=== PATIENT | male | born 1985 | race Caucasian/White ===

== ENCOUNTER 2017-09-24 12:38 | Emergency (ER) | payer MEDICAID ==
[~2017-09-24] VITALS: Ht 175.3 cm; Wt 103.0 kg
[~2017-09-24 12:38] MED LIST: ARIP5TAB4 PO; DIPH-423 PO; HALO5TAB PO; LAMO25TA2 PO; LORA1TAB PO
[2017-09-24] MEDS ORDERED: triamcinolone acetonide 40mg/ml inj IM ONE (15:10)
[2017-09-24] MEDS ORDERED: ketorolac trometh inj. 60 MG/2 ML VIAL IM ONE (15:10)
[2017-09-24 15:35] VITALS: BP 145/99
== END 2017-09-24 15:40 | disposition home or self-care (01) ==
LOC: ER 12:38
DX: S30.0XXA Contusion of lower back and pelvis, initial encounter (principal); F12.10 Cannabis abuse, uncomplicated; F15.10 Other stimulant abuse, uncomplicated; Z59.0 Homelessness; Z56.0 Unemployment, unspecified; W17.89XA Other fall from one level to another, initial encounter; Y93.89 Activity, other specified; Y92.89 Other specified places as the place of occurrence of the external cause; Y99.9 Unspecified external cause status
CPT/HCPCS: 72131; 96372; 99284; J1885; J3301

== ENCOUNTER 2017-11-13 18:53 | Emergency (ER) | payer MEDICAID ==
[~2017-11-13] VITALS: Ht 175.3 cm; Wt 90.9 kg
[~2017-11-13 18:53] MED LIST changes: -ARIP5TAB4 PO; +BUSP5TAB3 PO; +CITA-278 PO; +CLON0.1T PO; -DIPH-423 PO; +FLUT16SP2 BOTHNARES; -HALO5TAB PO; +IBUP-1986 PO; +QUET25TA PO
[2017-11-13 19:42] LABS: CLARITY,URINE CLEAR (Clear); COLOR,URINE YELLOW (Yellow); GLUCOSE, URINE NEGATIVE (Neg); KETONES,URINE TRACE mg/dl (Neg); LEUKOCYTE ESTERASE ,URINE NEGATIVE (Neg); NITRITES, URINE NEGATIVE (Neg); OCCULT BLOOD,URINE NEGATIVE (Neg); PH,URINE 5.5 (4.8-8.0); PROTEIN,URINE TRACE mg/dl (Neg)
[2017-11-13 19:44] LABS: UA COLLECTION TYPE CLN CATCH MIDSTREAM
[2017-11-13 19:51] LABS: BACTERIA,URINE NONE SEEN /HPF (Neg); MUCUS STRANDS FEW /LPF (Neg); RBC,URINE NONE SEEN /HPF (0-2); SQUAMOUS EPITHELIAL CELL,UR FEW /LPF (FEW)
[2017-11-13 19:52] LABS: WBC,URINE 0-4 /HPF (0-4)
[2017-11-13 20:41] LABS: URINE AMPHETAMINE SCREEN POSITIVE (Neg); URINE BARBITUATE SCREEN NEGATIVE (Neg); URINE BENZODIAZEPINES SCREEN NEGATIVE (Neg); URINE CANNABINOID SCREEN NEGATIVE (Neg); URINE COCAINE SCREEN NEGATIVE (Neg); URINE METHADONE SCREEN NEGATIVE (Neg); URINE OPIATE SCREEN NEGATIVE (Neg); URINE PHENCYCLIDINE SCREEN NEGATIVE (Neg)
[2017-11-13 20:47] VITALS: BP 131/87
== END 2017-11-13 21:15 | disposition home or self-care (01) ==
LOC: ER 18:54
DX: R36.9 Urethral discharge, unspecified (principal); R20.0 Anesthesia of skin; R10.30 Lower abdominal pain, unspecified; F15.10 Other stimulant abuse, uncomplicated; I10 Essential (primary) hypertension; F17.200 Nicotine dependence, unspecified, uncomplicated; F12.90 Cannabis use, unspecified, uncomplicated; Z60.2 Problems related to living alone; Z86.19 Personal history of other infectious and parasitic diseases; Z59.0 Homelessness; Z56.0 Unemployment, unspecified; Z79.899 Other long term (current) drug therapy
CPT/HCPCS: 80305; 81001; 99284

== ENCOUNTER 2018-01-30 07:03 | Emergency (ER) | payer MEDICAID ==
[~2018-01-30] VITALS: Ht 175.3 cm; Wt 96.4 kg
[~2018-01-30 07:03] MED LIST changes: -LAMO25TA2 PO
[2018-01-30 08:08] VITALS: BP 138/73
== END 2018-01-30 08:30 | disposition home or self-care (01) ==
LOC: ER 07:03
DX: M54.9 Dorsalgia, unspecified (principal); F03.90 Unspecified dementia, unspecified severity, without behavioral disturbance, psychotic disturbance, mood disturbance, and anxiety; H57.89 Other specified disorders of eye and adnexa; I10 Essential (primary) hypertension; F12.90 Cannabis use, unspecified, uncomplicated; F15.90 Other stimulant use, unspecified, uncomplicated; Z79.899 Other long term (current) drug therapy; Z56.0 Unemployment, unspecified; Z59.0 Homelessness; Z60.2 Problems related to living alone
CPT/HCPCS: 99281

== ENCOUNTER 2018-04-26 14:34 | Emergency (ER) | payer MEDICAID ==
[~2018-04-26] VITALS: Ht 175.3 cm; Wt 95.9 kg
[2018-04-26 15:20] VITALS: BP 150/93
[2018-04-26 15:42] LABS: BASOPHILS % (AUTO) 0.8 % (0-1); EOSINOPHILS % (AUTO) 0.5 % (0-6); HEMATOCRIT 49.5 % (42.0-52.0); HEMOGLOBIN 16.5 g/dl (14.0-17.9); LYMPHOCYTES # (AUTO) 1.1 X10'3 (1.1-4.8); LYMPHOCYTES % (AUTO) 29.7 % (21-51); MEAN CORPUSCULAR HEMOGLOBIN 31.2 PG (27.0-31.0); MEAN CORPUSCULAR HGB CONC 33.3 % (33.0-36.5); MEAN CORPUSCULAR VOLUME 93.8 FL (78-98); MEAN PLATELET VOLUME 6.3 FL (7.4-10.4); MONOCYTES # (AUTO) 0.3 X10'3 (0-0.9); MONOCYTES % (AUTO) 9.3 % (2-12); NEUTROPHILS # (AUTO) 2.2 X10'3 (1.8-7.7); NEUTROPHILS % (AUTO) 59.7 % (42-75); PLATELET COUNT 202 X10'3 (140-440); RED BLOOD COUNT 5.28 X10'6 (4.70-6.10); RED CELL DISTRIBUTION WIDTH 13.3 % (11.5-14.5); WHITE BLOOD COUNT 3.6 X10'3 (4.5-11.0)
[2018-04-26 15:50] LABS: CLARITY,URINE CLEAR (Clear); COLOR,URINE YELLOW (Yellow); GLUCOSE, URINE NEGATIVE (Neg); KETONES,URINE 15 mg/dl (Neg); LEUKOCYTE ESTERASE ,URINE NEGATIVE (Neg); NITRITES, URINE NEGATIVE (Neg); OCCULT BLOOD,URINE SMALL (Neg); PROTEIN,URINE >=300 mg/dl (Neg); UROBILINOGEN,URINE 0.2 E.U/dL (0.2-1.0)
[2018-04-26 15:51] LABS: UA COLLECTION TYPE CLN CATCH MIDSTREAM
[2018-04-26 16:00] LABS: ALANINE AMINOTRANSFERASE 213 U/L (12-78); ALBUMIN 4.5 G/DL (3.4-5.0); ALKALINE PHOSPHATASE 85 IU/L (46-116); ANION GAP 19 (8-16); ASPARTATE AMINO TRANSFERASE 278 U/L (10-37); BILIRUBIN,TOTAL 0.8 MG/DL (0.1-1.0); BLOOD UREA NITROGEN 14 MG/DL (7-18); BUN/CREATININE RATIO 17.5 (5.4-32.0); CALCIUM 8.6 MG/DL (8.5-10.1); CHLORIDE 99 MMOL/L (99-107); GLUCOSE 99 MG/DL (70-104); POTASSIUM 3.7 MMOL/L (3.5-5.1); SODIUM 141 MMOL/L (135-145); TOTAL CARBON DIOXIDE 22.7 MMOL/L (24-32); eGFR > 90 ML/MIN
[2018-04-26 16:01] LABS: INR 0.9 INR; PROTHROMBIN TIME 9.4 SECONDS (9.0-12.0)
[2018-04-26 16:09] LABS: BACTERIA,URINE NONE SEEN /HPF (Neg); MUCUS STRANDS FEW /LPF (Neg); RBC,URINE 0-2 /HPF (0-2); SQUAMOUS EPITHELIAL CELL,UR NONE SEEN /LPF (FEW); WBC,URINE 0-4 /HPF (0-4)
== END 2018-04-26 16:57 | disposition home or self-care (01) ==
LOC: ER 14:34
DX: F20.9 Schizophrenia, unspecified (principal); F10.10 Alcohol abuse, uncomplicated; I10 Essential (primary) hypertension; F12.90 Cannabis use, unspecified, uncomplicated; F15.90 Other stimulant use, unspecified, uncomplicated; Z86.19 Personal history of other infectious and parasitic diseases; Z60.2 Problems related to living alone; Z59.0 Homelessness; Z56.0 Unemployment, unspecified; Z79.899 Other long term (current) drug therapy; Y90.9 Presence of alcohol in blood, level not specified
CPT/HCPCS: 36415; 80053; 81001; 85025; 85610; 99283

== ENCOUNTER 2018-04-28 05:21 | Emergency (ER) | payer MEDICAID ==
[~2018-04-28] VITALS: Ht 177.8 cm; Wt 100.0 kg
[2018-04-28 05:26] VITALS: BP 138/72
[2018-04-28] MEDS ORDERED: LORazepam 2 mg/ml vial IM ONE (06:20)
[2018-04-28] MEDS ORDERED: ondansetron 4mg rapidly disintigrating tab PO ONE (06:55)
[2018-04-28] MEDS ORDERED: chlordiazePOXIDE 25mg capsule PO ONE (06:55)
== END 2018-04-28 07:33 | disposition home or self-care (01) ==
LOC: ER 05:23
DX: F41.9 Anxiety disorder, unspecified (principal); I10 Essential (primary) hypertension; F32.9 Major depressive disorder, single episode, unspecified; F20.9 Schizophrenia, unspecified; F12.90 Cannabis use, unspecified, uncomplicated; F15.90 Other stimulant use, unspecified, uncomplicated; Z59.0 Homelessness; Z56.0 Unemployment, unspecified; Z79.899 Other long term (current) drug therapy
CPT/HCPCS: 93005; 96372; 99284; J2060

== ENCOUNTER 2018-06-20 15:13 | Inpatient (IN) | payer MEDICAID ==
[~2018-06-20] VITALS: Ht 175.3 cm; Wt 106.9 kg
[2018-06-20] MEDS ORDERED: Potassium Cl inj 20 MEQ, magnesium sulf injection 2 GM, folic acid inj. 1 MG, thiamine ... IV ONE ×6 (15:24)
[2018-06-20] MEDS ORDERED: normal saline 1000ML IV soln IVB ONE ×2 (15:25→19:05)
[2018-06-20] MEDS ORDERED: ondansetron/PF 4mg/2ml inj IV ONE (15:25)
[2018-06-20 15:58] LABS: BASOPHILS % (AUTO) 0.5 % (0-1); EOSINOPHILS % (AUTO) 0.3 % (0-6); HEMATOCRIT 43.2 % (42.0-52.0); HEMOGLOBIN 14.7 g/dl (14.0-17.9); LYMPHOCYTES # (AUTO) 0.9 X10'3 (1.1-4.8); LYMPHOCYTES % (AUTO) 12.7 % (21-51); MEAN CORPUSCULAR HEMOGLOBIN 31.1 PG (27.0-31.0); MEAN CORPUSCULAR VOLUME 91.6 FL (78-98); MEAN PLATELET VOLUME 6.8 FL (7.4-10.4); MONOCYTES # (AUTO) 0.6 X10'3 (0-0.9); MONOCYTES % (AUTO) 8.5 % (2-12); NEUTROPHILS # (AUTO) 5.2 X10'3 (1.8-7.7); PLATELET COUNT 192 X10'3 (140-440); RED BLOOD COUNT 4.72 X10'6 (4.70-6.10); RED CELL DISTRIBUTION WIDTH 13.7 % (11.5-14.5); WHITE BLOOD COUNT 6.7 X10'3 (4.5-11.0)
[2018-06-20 16:06] LABS: PROTHROMBIN TIME 9.9 SECONDS (9.0-12.0)
[2018-06-20] MEDS ORDERED: LORazepam 2 mg/ml vial IV ONE ×2 (16:10→17:45)
[2018-06-20 16:11] LABS: ALANINE AMINOTRANSFERASE 65 U/L (12-78); ALKALINE PHOSPHATASE 74 IU/L (46-116); ANION GAP 17 (8-16); ASPARTATE AMINO TRANSFERASE 71 U/L (10-37); BILIRUBIN,TOTAL 0.7 MG/DL (0.1-1.0); BLOOD UREA NITROGEN 12 MG/DL (7-18); BUN/CREATININE RATIO 13.8 (5.4-32.0); CALCIUM 9.1 MG/DL (8.5-10.1); CHLORIDE 100 MMOL/L (99-107); CREATININE 0.87 MG/DL (0.60-1.10); ETHANOL 0.039 GM/DL (0.0-0.010); GLUCOSE 105 MG/DL (70-104); LIPASE 217 U/L (73-393); MAGNESIUM 1.3 MG/DL (1.5-2.4); POTASSIUM 3.5 MMOL/L (3.5-5.1); SODIUM 138 MMOL/L (135-145); TOTAL CARBON DIOXIDE 21.5 MMOL/L (24-32); eGFR > 90 ML/MIN
[2018-06-20] MEDS ORDERED: pantoprazole 40 MG vial IV ONE (17:45)
[2018-06-20 17:51] LABS: URINE AMPHETAMINE SCREEN NEGATIVE (Neg); URINE BARBITUATE SCREEN NEGATIVE (Neg); URINE BENZODIAZEPINES SCREEN NEGATIVE (Neg); URINE CANNABINOID SCREEN NEGATIVE (Neg); URINE COCAINE SCREEN NEGATIVE (Neg); URINE METHADONE SCREEN NEGATIVE (Neg); URINE OPIATE SCREEN NEGATIVE (Neg); URINE PHENCYCLIDINE SCREEN NEGATIVE (Neg)
[2018-06-20] MEDS ORDERED: haloperidol lactate 5mg/ml inj IM PRN (19:55)
[2018-06-20] MEDS ORDERED: magnesium hydroxide 30ml (MOM) UD suspension PO PRN (19:55)
[2018-06-20] MEDS ORDERED: haloperidol 5mg tablet PO PRN (19:55)
[2018-06-20] MEDS ORDERED: morphine 4 MG/ML inj SYRINge IV PRN ×2 (19:55)
[2018-06-20] MEDS ORDERED: mag hydrox/Alum hydrox/simeth 30ml oral suspension PO PRN (19:55)
[2018-06-20] MEDS ORDERED: ondansetron/PF 4mg/2ml inj IV PRN (19:55)
[2018-06-20] MEDS ORDERED: HYDROcodone/acetaminophen 5mg/325mg tablet PO PRN (19:55)
[2018-06-20] MEDS ORDERED: acetaminophen 325mg tablet PO PRN (19:55)
[2018-06-20] MEDS ORDERED: thiamine 100mg/ml 2ml inj. IV ONE (19:55)
[2018-06-20] MEDS ORDERED: dextrose 50%-water 50ml dispensing syringe IV PRN (19:55)
[2018-06-20] MEDS: dextrose 5%-1/2 normal saline 1,000 ML IV SCH (20:29)
[2018-06-20] MEDS: heparin, porcine 5000 units/ml vial SQ SCH (20:30)
--- NOTE | 2018-06-20 21:10 | NUR ---
Pt reports ETOH consumption of " a fifth daily, " with last drink last night.
--- NOTE | 2018-06-20 22:00 | NUR ---
Received report from Alexa RN had the opportunity to ask questions. Pending patient arrival to the floor.
[2018-06-20 22:30] VITALS: BP 153/96
[2018-06-20] MEDS: LORazepam 2 mg/ml vial IV PRN (23:02)
[2018-06-20 23:21] VITALS: BP_SYST 153; BP_SYST 154; BP_DIAS 90; BP_DIAS 94; BP_DIAS 96
[2018-06-21] VITALS (7 sets, daily range): BP systolic 139–168; BP diastolic 81–109
[2018-06-21] MEDS: LORazepam 2 mg/ml vial IV PRN ×5 (00:56→19:42)
[2018-06-21] MEDS: dextrose 5%-1/2 normal saline 1,000 ML IV SCH (05:45)
--- NOTE | 2018-06-21 06:13 | NUR ---
Patient in room PCU 3025. I have received report from Leona CONTE and had the opportunity to ask questions and assume patient care.
--- NOTE | 2018-06-21 06:13 | NUR ---
Reported off to Shelley CONTE. Patient is awake and alert on room air. Call light and items of frequent use within reach.
[2018-06-21 06:25] LABS: BASOPHILS % (AUTO) 0.6 % (0-1); EOSINOPHILS # (AUTO) 0.1 X10'3 (0-0.9); EOSINOPHILS % (AUTO) 1.1 % (0-6); HEMOGLOBIN 13.8 g/dl (14.0-17.9); LYMPHOCYTES # (AUTO) 0.8 X10'3 (1.1-4.8); LYMPHOCYTES % (AUTO) 16.3 % (21-51); MEAN CORPUSCULAR HEMOGLOBIN 31.2 PG (27.0-31.0); MEAN CORPUSCULAR HGB CONC 34.4 g/dL (33.0-36.5); MEAN CORPUSCULAR VOLUME 90.5 FL (78-98); MONOCYTES # (AUTO) 0.6 X10'3 (0-0.9); MONOCYTES % (AUTO) 12.4 % (2-12); NEUTROPHILS # (AUTO) 3.4 X10'3 (1.8-7.7); NEUTROPHILS % (AUTO) 69.6 % (42-75); PLATELET COUNT 179 X10'3 (140-440); RED BLOOD COUNT 4.42 X10'6 (4.70-6.10); RED CELL DISTRIBUTION WIDTH 13.2 % (11.5-14.5)
[2018-06-21 06:29] LABS: ALANINE AMINOTRANSFERASE 56 U/L (12-78); ALBUMIN 3.3 G/DL (3.4-5.0); ALBUMIN/GLOBULIN RATIO 0.9 (1.1-1.5); ALKALINE PHOSPHATASE 62 IU/L (46-116); ANION GAP 10 (8-16); ASPARTATE AMINO TRANSFERASE 62 U/L (10-37); BILIRUBIN,TOTAL 0.8 MG/DL (0.1-1.0); BLOOD UREA NITROGEN 9 MG/DL (7-18); BUN/CREATININE RATIO 11.1 (5.4-32.0); CALCIUM 8.6 MG/DL (8.5-10.1); CHLORIDE 101 MMOL/L (99-107); CREATININE 0.81 MG/DL (0.60-1.10); GLUCOSE 93 MG/DL (70-104); POTASSIUM 3.6 MMOL/L (3.5-5.1); SODIUM 136 MMOL/L (135-145); TOTAL CARBON DIOXIDE 24.6 MMOL/L (24-32); TOTAL PROTEIN 6.9 G/DL (6.4-8.2); eGFR > 90 ML/MIN
[2018-06-21] MEDS: thiamine 100mg tablet PO SCH (07:36)
[2018-06-21] MEDS: multivitamins, therapeutics tablet PO SCH (07:36)
[2018-06-21] MEDS: busPIRone 5mg tablet PO SCH ×2 (07:36→19:40)
[2018-06-21] MEDS: folic acid 1mg tablet PO SCH (07:36)
[2018-06-21] MEDS: heparin, porcine 5000 units/ml vial SQ SCH ×2 (07:38→19:41)
[2018-06-21] MEDS ORDERED: FLU VACC QUAD 2018(5 YR UP)/PF 60 MCG/0.5 ML SYRINGE IM ONE (10:00)
--- NOTE | 2018-06-21 12:10 | NUR ---
Paged hospitalist, "Shelley [phone], Please call at your convenience (nonemergent) re: [phone]."
[2018-06-21] MEDS ORDERED: magnesium 4gm in 100ml NS 100 ML IV PRN (12:25)
[2018-06-21] MEDS ORDERED: magnesium 2GM in 50ml NS 50 ML IV PRN (12:25)
--- NOTE | 2018-06-21 14:25 | NUR ---
Paged hospitalist, "dayton [phone]- Rm. [phone]. May we get order for Immodium?"
[2018-06-21] MEDS ORDERED: potassium Cl 20 mEq SR tablet PO PRN ×2 (14:50)
[2018-06-21] MEDS ORDERED: potassium Cl 40MEQ/NS 500ml 500 ML IV PRN ×2 (14:50)
[2018-06-21] MEDS: pantoprazole 40 MG vial IV SCH (16:03)
--- NOTE | 2018-06-21 16:19 | NUR ---
Paged Daniel. "Shelley [phone]- Rm. [phone]. Patient has high blood pressure. DBP 101"
[2018-06-21] MEDS: metoprolol tartrate 25mg tablet PO SCH ×2 (16:43→19:41)
--- NOTE | 2018-06-21 18:19 | NUR ---
Problems reprioritized. Patient report given, questions answered & plan of care reviewed with DACIA CONTE.
--- NOTE | 2018-06-21 18:25 | NUR ---
Patient in room PCU 3025. I have received report from Shelley CONTE and had the opportunity to ask questions and assume patient care.
[2018-06-21] MEDS ORDERED: cloNIDine 0.1 mg tablet PO SCH (21:00)
[2018-06-21] MEDS: QUEtiapine 25mg tablet PO SCH (21:27)
[2018-06-22] VITALS (8 sets, daily range): BP systolic 126–162; BP diastolic 88–111
[2018-06-22] MEDS: LORazepam 2 mg/ml vial IV PRN (01:31)
[2018-06-22 05:32] LABS: BASOPHILS % (AUTO) 0.7 % (0-1); EOSINOPHILS # (AUTO) 0.1 X10'3 (0-0.9); EOSINOPHILS % (AUTO) 1.8 % (0-6); HEMATOCRIT 44.3 % (42.0-52.0); HEMOGLOBIN 15.1 g/dl (14.0-17.9); LYMPHOCYTES # (AUTO) 0.8 X10'3 (1.1-4.8); LYMPHOCYTES % (AUTO) 16.5 % (21-51); MEAN CORPUSCULAR HEMOGLOBIN 31.3 PG (27.0-31.0); MEAN CORPUSCULAR HGB CONC 34.1 g/dL (33.0-36.5); MEAN CORPUSCULAR VOLUME 91.8 FL (78-98); MEAN PLATELET VOLUME 7.1 FL (7.4-10.4); MONOCYTES # (AUTO) 0.7 X10'3 (0-0.9); MONOCYTES % (AUTO) 15.6 % (2-12); NEUTROPHILS % (AUTO) 65.4 % (42-75); PLATELET COUNT 171 X10'3 (140-440); RED BLOOD COUNT 4.82 X10'6 (4.70-6.10); RED CELL DISTRIBUTION WIDTH 13.5 % (11.5-14.5); WHITE BLOOD COUNT 4.6 X10'3 (4.5-11.0)
[2018-06-22 06:01] LABS: ALANINE AMINOTRANSFERASE 60 U/L (12-78); ALBUMIN 3.7 G/DL (3.4-5.0); ALBUMIN/GLOBULIN RATIO 0.8 (1.1-1.5); ALKALINE PHOSPHATASE 72 IU/L (46-116); ANION GAP 10 (8-16); ASPARTATE AMINO TRANSFERASE 58 U/L (10-37); BILIRUBIN,TOTAL 0.5 MG/DL (0.1-1.0); BLOOD UREA NITROGEN 9 MG/DL (7-18); BUN/CREATININE RATIO 10.6 (5.4-32.0); CALCIUM 9.6 MG/DL (8.5-10.1); CHLORIDE 100 MMOL/L (99-107); CREATININE 0.85 MG/DL (0.60-1.10); GLUCOSE 99 MG/DL (70-104); MAGNESIUM 1.8 MG/DL (1.5-2.4); POTASSIUM 4.1 MMOL/L (3.5-5.1); SODIUM 135 MMOL/L (135-145); TOTAL CARBON DIOXIDE 24.6 MMOL/L (24-32); TOTAL PROTEIN 8.1 G/DL (6.4-8.2); eGFR > 90 ML/MIN
--- NOTE | 2018-06-22 06:42 | NUR ---
Patient in room PCU 3025. I have received report from Deidra CONTE and had the opportunity to ask questions and assume patient care.
--- NOTE | 2018-06-22 06:51 | NUR ---
Problems reprioritized. Patient report given, questions answered & plan of care reviewed with Dinorah CONTE. Addendum: 06/22/18 at 0742 by Denise Nguyen RN Galen CONTE given report.
[2018-06-22] MEDS: multivitamins, therapeutics tablet PO SCH (09:10)
[2018-06-22] MEDS: busPIRone 5mg tablet PO SCH ×2 (09:10→19:54)
[2018-06-22] MEDS: heparin, porcine 5000 units/ml vial SQ SCH ×2 (09:10→19:56)
[2018-06-22] MEDS: thiamine 100mg tablet PO SCH (09:10)
[2018-06-22] MEDS: gabapentin 300mg capsule PO SCH ×3 (09:11→21:00)
[2018-06-22] MEDS: folic acid 1mg tablet PO SCH (09:11)
[2018-06-22] MEDS: metoprolol tartrate 25mg tablet PO SCH ×2 (09:11→19:55)
[2018-06-22] MEDS: pantoprazole 40 MG vial IV SCH (09:11)
--- NOTE | 2018-06-22 18:35 | NUR ---
Problems reprioritized. Patient report given, questions answered & plan of care reviewed with Deidra CONTE.
--- NOTE | 2018-06-22 19:14 | NUR ---
Patient in room PCU 3025. I have received report from Galen CONTE and had the opportunity to ask questions and assume patient care.
[2018-06-22] MEDS ORDERED: LORazepam 1 MG tablet PO PRN (19:55)
[2018-06-22] MEDS ORDERED: LORazepam 2 mg/ml vial IV PRN (19:55)
--- NOTE | 2018-06-22 20:00 | NUR ---
[facility] RN at assessing pt's psychiatric status through full interview. This RN also spoke w/this customs entry writer regarding pt's observed behavior and verbalizations while under care X 2 NOC shifts. Feedback offered and noted by [facility] RN. Printed paper report faxed to PCU and filed at front of chart.
[2018-06-22] MEDS: QUEtiapine 25mg tablet PO SCH (21:00)
--- NOTE | 2018-06-22 21:00 | NUR ---
Pt. awakened from sound sleep regarding medication admin. and stated to this nurse that he would prefer to not take these medications this NOC and that he would like to cont. sleeping. He is very pleasant during this interaction. Immed fell to sleep.
[2018-06-23 02:00] VITALS: BP 148/99
[2018-06-23 06:01] LABS: ALANINE AMINOTRANSFERASE 74 U/L (12-78); ALBUMIN 3.7 G/DL (3.4-5.0); ALBUMIN/GLOBULIN RATIO 0.8 (1.1-1.5); ALKALINE PHOSPHATASE 75 IU/L (46-116); ANION GAP 14 (8-16); ASPARTATE AMINO TRANSFERASE 78 U/L (10-37); BILIRUBIN,TOTAL 0.5 MG/DL (0.1-1.0); BLOOD UREA NITROGEN 13 MG/DL (7-18); BUN/CREATININE RATIO 16.7 (5.4-32.0); CALCIUM 9.5 MG/DL (8.5-10.1); CHLORIDE 102 MMOL/L (99-107); CREATININE 0.78 MG/DL (0.60-1.10); GLUCOSE 94 MG/DL (70-104); MAGNESIUM 2.1 MG/DL (1.5-2.4); POTASSIUM 3.8 MMOL/L (3.5-5.1); SODIUM 137 MMOL/L (135-145); TOTAL CARBON DIOXIDE 20.9 MMOL/L (24-32); TOTAL PROTEIN 8.3 G/DL (6.4-8.2); eGFR > 90 ML/MIN
--- NOTE | 2018-06-23 06:15 | NUR ---
Patient in room PCU 3025. I have received report from Denise CONTE and had the opportunity to ask questions and assume patient care.
--- NOTE | 2018-06-23 06:40 | NUR ---
Problems reprioritized. Patient report given, questions answered & plan of care reviewed with Jt CONTE.
[2018-06-23 07:00] VITALS: BP 141/98
[2018-06-23 08:00] VITALS: BP_SYST 160; BP_SYST 91; BP_DIAS 101; BP_DIAS 108; BP_DIAS 71
[2018-06-23] MEDS: heparin, porcine 5000 units/ml vial SQ SCH (09:43)
[2018-06-23] MEDS: pantoprazole 40 MG vial IV SCH (09:43)
[2018-06-23] MEDS: busPIRone 5mg tablet PO SCH (09:43)
[2018-06-23] MEDS: multivitamins, therapeutics tablet PO SCH (09:44)
[2018-06-23] MEDS: metoprolol tartrate 25mg tablet PO SCH (09:44)
[2018-06-23] MEDS: folic acid 1mg tablet PO SCH (09:44)
[2018-06-23] MEDS: gabapentin 300mg capsule PO SCH (09:44)
[2018-06-23] MEDS: thiamine 100mg tablet PO SCH (10:12)
--- NOTE | 2018-06-23 10:24 | NUR ---
Paged Dr. Sanchez PAGER ID: [phone] MESSAGE: Jt CONTE [phone] Alexander Kent: Nahomy from mental health called saying pt being transferred to behavioral health unit. Nahomy (mental health) stated pt needs discharge orders in order to be transferred. Thank you.
[2018-06-23] MEDS ORDERED: FOLI1TAB16 PO (10:42)
[2018-06-23] MEDS ORDERED: PANT-47 PO (10:42)
[2018-06-23] MEDS ORDERED: thiamine tablet PO (10:42)
[2018-06-23] MEDS ORDERED: METO25TA6 PO (10:42)
[2018-06-23] MEDS ORDERED: GABA300C PO (10:42)
[2018-06-23 11:00] VITALS: BP 91/71
--- NOTE | 2018-06-23 11:50 | NUR ---
Patient Transferred to behavioral health unit. All patient belongings sent with patient. Report given to Lilia CONTE. Lilia CONTE and nurse's aide transferred patient. Patient transferred via wheelchair.
[2018-06-24] MEDS ORDERED: LORazepam 1 MG tablet PO PRN (19:55)
[2018-06-24] MEDS ORDERED: LORazepam 2 mg/ml vial IV PRN (19:55)
== END 2018-06-23 11:58 | DRG 241 ==
LOC: ER 15:13 → ED HOLD 19:54 → PCU 3S 22:33
PROVIDERS: ADMIT Internal Medicine; ATTEND Internal Medicine
DX: K29.20 Alcoholic gastritis without bleeding (principal); E83.42 Hypomagnesemia; F25.1 Schizoaffective disorder, depressive type; F10.239 Alcohol dependence with withdrawal, unspecified; F17.210 Nicotine dependence, cigarettes, uncomplicated; F41.9 Anxiety disorder, unspecified; I10 Essential (primary) hypertension; B19.20 Unspecified viral hepatitis C without hepatic coma; F12.90 Cannabis use, unspecified, uncomplicated; F32.9 Major depressive disorder, single episode, unspecified; Z60.2 Problems related to living alone; R00.0 Tachycardia, unspecified; R26.9 Unspecified abnormalities of gait and mobility; Y90.1 Blood alcohol level of 20-39 mg/100 ml; Z79.899 Other long term (current) drug therapy; Z91.19 Patient's noncompliance with other medical treatment and regimen; Z59.0 Homelessness; Z23 Encounter for immunization; Z71.41 Alcohol abuse counseling and surveillance of alcoholic
CPT/HCPCS: 36415; 71045; 80053; 80305; 80320; 82140; 82948; 83690; 83735; 84100; 85025; 85610; 87070; 96365; 96366; 96375; 96376; 99285; C9113; G0378; J1630; J1644; J2060; J2270; J2405; J3411; J3475; J3480; J3490; Q2037

== ENCOUNTER 2018-06-23 10:10 | Inpatient (IN) | payer MEDICAID | END 2018-07-10 11:45 | disposition still patient (30) | LOC: ADULT MH 10:10 | DX: R53.1 Weakness (principal); F25.9 Schizoaffective disorder, unspecified; F41.9 Anxiety disorder, unspecified ==

== ENCOUNTER 2019-04-06 20:55 | Emergency (ER) | payer MEDICAID ==
[~2019-04-06] VITALS: Ht 167.6 cm; Wt 113.6 kg
[~2019-04-06 20:55] MED LIST changes: -BUSP5TAB3 PO; -CITA-278 PO; -CLON0.1T PO; -FLUT16SP2 BOTHNARES; +GABA-532 PO; -IBUP-1986 PO; -LORA1TAB PO; +METO-411 PO; +PALI6TAB6 PO; +PANT40TA4 PO; -QUET25TA PO; +TRAZ-219 PO
[2019-04-06 21:16] LABS: BASOPHILS # (AUTO) 0.1 X10'3 (0-0.2); BASOPHILS % (AUTO) 1.3 % (0-1); EOSINOPHILS # (AUTO) 0.2 X10'3 (0-0.9); EOSINOPHILS % (AUTO) 2.8 % (0-6); HEMATOCRIT 39.5 % (42.0-52.0); HEMOGLOBIN 13.6 g/dl (14.0-17.9); LYMPHOCYTES # (AUTO) 1.6 X10'3 (1.1-4.8); LYMPHOCYTES % (AUTO) 24.1 % (21-51); MEAN CORPUSCULAR HEMOGLOBIN 32.8 PG (27.0-31.0); MEAN CORPUSCULAR HGB CONC 34.5 g/dL (33.0-36.5); MEAN CORPUSCULAR VOLUME 95.2 FL (78-98); MEAN PLATELET VOLUME 7.6 FL (7.4-10.4); MONOCYTES # (AUTO) 0.8 X10'3 (0-0.9); MONOCYTES % (AUTO) 12.5 % (2-12); NEUTROPHILS % (AUTO) 59.3 % (42-75); PLATELET COUNT 216 X10'3 (140-440); RED BLOOD COUNT 4.15 X10'6 (4.70-6.10); RED CELL DISTRIBUTION WIDTH 14.3 % (11.5-14.5); WHITE BLOOD COUNT 6.7 X10'3 (4.5-11.0)
[2019-04-06 21:20] LABS: CLARITY,URINE SLIGHTLY CLOUDY (Clear); COLOR,URINE YELLOW (Yellow); GLUCOSE, URINE NEGATIVE (Neg); KETONES,URINE NEGATIVE (Neg); LEUKOCYTE ESTERASE ,URINE NEGATIVE (Neg); NITRITES, URINE NEGATIVE (Neg); OCCULT BLOOD,URINE NEGATIVE (Neg); PROTEIN,URINE TRACE mg/dl (Neg); UROBILINOGEN,URINE 0.2 E.U/dL (0.2-1.0)
[2019-04-06 21:22] LABS: UA COLLECTION TYPE CLN CATCH MIDSTREAM
[2019-04-06 21:30] LABS: HYALINE CASTS 0-3 /LPF (NEGATIVE)
[2019-04-06 21:30] LABS: ALANINE AMINOTRANSFERASE 102 U/L (12-78); ALBUMIN 3.7 G/DL (3.4-5.0); ALBUMIN/GLOBULIN RATIO 0.9 (1.1-1.5); ALKALINE PHOSPHATASE 72 IU/L (46-116); AMYLASE 70 U/L (25-115); ANION GAP 10 (8-16); ASPARTATE AMINO TRANSFERASE 55 U/L (10-37); BILIRUBIN,TOTAL 0.2 MG/DL (0.1-1.0); BLOOD UREA NITROGEN 11 MG/DL (7-18); BUN/CREATININE RATIO 12.9 (5.4-32.0); CALCIUM 9.3 MG/DL (8.5-10.1); CHLORIDE 102 MMOL/L (99-107); CREATININE 0.85 MG/DL (0.60-1.10); GLUCOSE 120 MG/DL (70-104); LIPASE 341 U/L (73-393); POTASSIUM 3.5 MMOL/L (3.5-5.1); SODIUM 139 MMOL/L (135-145); TOTAL CARBON DIOXIDE 26.7 MMOL/L (24-32); eGFR > 90 ML/MIN
[2019-04-06 21:31] LABS: BACTERIA,URINE NONE SEEN /HPF (Neg); MUCUS STRANDS MANY /LPF (Neg); RBC,URINE NONE SEEN /HPF (0-2); SQUAMOUS EPITHELIAL CELL,UR FEW /LPF (FEW); WBC,URINE 0-4 /HPF (0-4)
[2019-04-06 21:32] LABS: AMORPHOUS URATES 1+
[2019-04-06] MEDS ORDERED: famotidine 20mg tablet PO ONE (23:00)
[2019-04-06] MEDS ORDERED: OMEP40CA13 PO (23:16)
[2019-04-06 23:22] VITALS: BP 132/82
== END 2019-04-06 23:24 | disposition home or self-care (01) ==
LOC: ER 20:56
DX: K29.21 Alcoholic gastritis with bleeding (principal); F10.19 Alcohol abuse with unspecified alcohol-induced disorder; I10 Essential (primary) hypertension; F41.9 Anxiety disorder, unspecified; F32.9 Major depressive disorder, single episode, unspecified; F20.9 Schizophrenia, unspecified; F12.90 Cannabis use, unspecified, uncomplicated; Z86.19 Personal history of other infectious and parasitic diseases; Z59.0 Homelessness; Z56.0 Unemployment, unspecified; Z79.899 Other long term (current) drug therapy; Y90.9 Presence of alcohol in blood, level not specified
CPT/HCPCS: 36415; 80053; 81001; 82150; 83690; 85025; 99283

== ENCOUNTER 2019-10-19 10:18 | Emergency (ER) | payer MEDICAID ==
[~2019-10-19] VITALS: Ht 175.3 cm; Wt 116.8 kg
[~2019-10-19 10:18] MED LIST changes: -TRAZ-219 PO; +TRAZ-256 PO
[2019-10-19] MEDS ORDERED: LORazepam 2 mg/ml vial IV ONE ×2 (10:50→13:15)
[2019-10-19] MEDS ORDERED: thiamine 100mg/ml 2ml inj. IV ONE (10:50)
[2019-10-19] MEDS ORDERED: normal saline 1000ML IV soln IVB ONE (10:50)
--- NOTE | 2019-10-19 11:16 | NUR ---
assumed care of pt from Gisele CONTE. Pt is resting quietly on bed, resp even and unlabored
[2019-10-19 11:53] LABS: BASOPHILS # (AUTO) 0.1 X10'3 (0-0.2); BASOPHILS % (AUTO) 0.8 % (0-1); EOSINOPHILS % (AUTO) 0 % (0-6); HEMATOCRIT 43.9 % (42.0-52.0); HEMOGLOBIN 14.6 g/dl (14.0-17.9); LYMPHOCYTES # (AUTO) 0.9 X10'3 (1.1-4.8); LYMPHOCYTES % (AUTO) 12.4 % (21-51); MEAN CORPUSCULAR HEMOGLOBIN 33.3 PG (27.0-31.0); MEAN CORPUSCULAR HGB CONC 33.2 g/dL (33.0-36.5); MEAN CORPUSCULAR VOLUME 100.4 FL (78-98); MEAN PLATELET VOLUME 7.3 FL (7.4-10.4); MONOCYTES # (AUTO) 0.8 X10'3 (0-0.9); MONOCYTES % (AUTO) 10.2 % (2-12); NEUTROPHILS # (AUTO) 5.8 X10'3 (1.8-7.7); NEUTROPHILS % (AUTO) 76.6 % (42-75); PLATELET COUNT 197 X10'3 (140-440); RED BLOOD COUNT 4.37 X10'6 (4.70-6.10); RED CELL DISTRIBUTION WIDTH 15.1 % (11.5-14.5); WHITE BLOOD COUNT 7.5 X10'3 (4.5-11.0)
--- NOTE | 2019-10-19 11:56 | NUR ---
pt has received 1 liter NS and ativan, denies suicidal thoughts/plan, said he has thoughts in the past but has never attempted suicide,
[2019-10-19 12:11] LABS: ALANINE AMINOTRANSFERASE 144 U/L (12-78); ALBUMIN 3.8 G/DL (3.4-5.0); ALBUMIN/GLOBULIN RATIO 0.9 (1.1-1.5); ALKALINE PHOSPHATASE 128 IU/L (46-116); ANION GAP 14 (8-16); ASPARTATE AMINO TRANSFERASE 325 U/L (10-37); BILIRUBIN,TOTAL 2.4 MG/DL (0.1-1.0); BLOOD UREA NITROGEN 15 MG/DL (7-18); BUN/CREATININE RATIO 16.1 (5.4-32.0); CALCIUM 8.6 MG/DL (8.5-10.1); CHLORIDE 98 MMOL/L (99-107); CREATININE 0.93 MG/DL (0.60-1.10); GLUCOSE 123 MG/DL (70-104); POTASSIUM 3.3 MMOL/L (3.5-5.1); SODIUM 136 MMOL/L (135-145); TOTAL CARBON DIOXIDE 24.5 MMOL/L (24-32); TOTAL PROTEIN 7.9 G/DL (6.4-8.2); eGFR > 90 ML/MIN
[2019-10-19 12:12] LABS: ETHANOL < 0.010 GM/DL (0.0-0.010); MAGNESIUM 1.9 MG/DL (1.5-2.4)
--- NOTE | 2019-10-19 12:33 | NUR ---
urine sample sent to lab, civil drafting technician at bedside
[2019-10-19 12:48] LABS: URINE AMPHETAMINE SCREEN POSITIVE (Neg); URINE BARBITUATE SCREEN NEGATIVE (Neg); URINE BENZODIAZEPINES SCREEN POSITIVE (Neg); URINE CANNABINOID SCREEN NEGATIVE (Neg); URINE COCAINE SCREEN NEGATIVE (Neg); URINE METHADONE SCREEN NEGATIVE (Neg); URINE OPIATE SCREEN NEGATIVE (Neg); URINE PHENCYCLIDINE SCREEN NEGATIVE (Neg)
[2019-10-19 12:52] VITALS: BP 135/93
[2019-10-19 12:56] LABS: CLARITY,URINE SLIGHTLY CLOUDY (Clear); COLOR,URINE AMBER (Yellow)
[2019-10-19 12:58] LABS: UA COLLECTION TYPE URINAL
[2019-10-19 13:06] LABS: BACTERIA,URINE FEW /HPF (Neg); MUCUS STRANDS MANY /LPF (Neg); RBC,URINE NONE SEEN /HPF (0-2); SQUAMOUS EPITHELIAL CELL,UR FEW /LPF (FEW); WBC,URINE 0-4 /HPF (0-4)
[2019-10-19 13:07] LABS: COARSE GRANULAR CAST 0-3 /LPF (NEGATIVE)
[2019-10-19] MEDS ORDERED: GABA300C PO (13:19)
--- NOTE | 2019-10-19 13:37 | NUR ---
pt is eating lunch, anand well, no n/v
--- NOTE | 2019-10-19 14:06 | NUR ---
pt dc'd home with friend, has prescription for gabapentin, amb with steady gait to lobby
== END 2019-10-19 14:06 | disposition home or self-care (01) ==
LOC: ER 10:19
DX: F10.20 Alcohol dependence, uncomplicated (principal); F15.10 Other stimulant abuse, uncomplicated; R11.2 Nausea with vomiting, unspecified; I10 Essential (primary) hypertension; F41.9 Anxiety disorder, unspecified; K70.0 Alcoholic fatty liver; F25.1 Schizoaffective disorder, depressive type; F12.90 Cannabis use, unspecified, uncomplicated; Z86.19 Personal history of other infectious and parasitic diseases; Z72.89 Other problems related to lifestyle; Z60.2 Problems related to living alone; Z56.0 Unemployment, unspecified; Z59.0 Homelessness; Z79.899 Other long term (current) drug therapy; Y90.0 Blood alcohol level of less than 20 mg/100 ml
CPT/HCPCS: 36415; 76700; 80053; 80305; 80320; 81001; 83735; 84443; 85025; 96361; 96374; 96375; 96376; 99284; J2060; J3411; J7030

== ENCOUNTER 2020-02-11 08:24 | Emergency (ER) | payer MEDICAID ==
[~2020-02-11] VITALS: Ht 175.3 cm; Wt 125.0 kg
[~2020-02-11 08:24] MED LIST changes: +GABA300C PO; -PANT40TA4 PO; +PANT40TA54 PO
[2020-02-11 08:58] LABS: BASOPHILS # (AUTO) 0.1 X10'3 (0-0.2); EOSINOPHILS % (AUTO) 0.4 % (0-6); HEMATOCRIT 40.4 % (42.0-52.0); HEMOGLOBIN 13.9 g/dl (14.0-17.9); LYMPHOCYTES % (AUTO) 14.2 % (21-51); MEAN CORPUSCULAR HEMOGLOBIN 33.4 PG (27.0-31.0); MEAN CORPUSCULAR HGB CONC 34.5 g/dL (33.0-36.5); MEAN CORPUSCULAR VOLUME 97.1 FL (78-98); MEAN PLATELET VOLUME 7.6 FL (7.4-10.4); MONOCYTES # (AUTO) 0.6 X10'3 (0-0.9); MONOCYTES % (AUTO) 9.1 % (2-12); NEUTROPHILS # (AUTO) 5.3 X10'3 (1.8-7.7); NEUTROPHILS % (AUTO) 75.3 % (42-75); PLATELET COUNT 123 X10'3 (140-440); RED BLOOD COUNT 4.16 X10'6 (4.70-6.10); RED CELL DISTRIBUTION WIDTH 14.5 % (11.5-14.5); WHITE BLOOD COUNT 7.1 X10'3 (4.5-11.0)
[2020-02-11 09:21] LABS: ALANINE AMINOTRANSFERASE 151 U/L (12-78); ALBUMIN 3.2 G/DL (3.4-5.0); ALBUMIN/GLOBULIN RATIO 0.6 (1.1-1.5); ALKALINE PHOSPHATASE 209 IU/L (46-116); AMYLASE 38 U/L (25-115); ANION GAP 12 (8-16); ASPARTATE AMINO TRANSFERASE 397 U/L (10-37); BILIRUBIN,TOTAL 1.6 MG/DL (0.1-1.0); BLOOD UREA NITROGEN 5 MG/DL (7-18); BUN/CREATININE RATIO 6.9 (5.4-32.0); CALCIUM 8.8 MG/DL (8.5-10.1); CHLORIDE 95 MMOL/L (99-107); CREATININE 0.72 MG/DL (0.60-1.10); GLUCOSE 123 MG/DL (70-104); LIPASE 152 U/L (73-393); POTASSIUM 3.3 MMOL/L (3.5-5.1); SODIUM 133 MMOL/L (135-145); TOTAL CARBON DIOXIDE 26.4 MMOL/L (24-32); TOTAL PROTEIN 8.7 G/DL (6.4-8.2); eGFR > 90 ML/MIN
[2020-02-11] MEDS ORDERED: LORazepam 1 MG tablet PO ONE (09:35)
--- NOTE | 2020-02-11 09:37 | NUR ---
PT TO CT.
[2020-02-11 09:53] LABS: CLARITY,URINE CLEAR (Clear); GLUCOSE, URINE NEGATIVE (Neg); KETONES,URINE TRACE mg/dl (Neg); LEUKOCYTE ESTERASE ,URINE NEGATIVE (Neg); OCCULT BLOOD,URINE NEGATIVE (Neg); PROTEIN,URINE 30 mg/dl (Neg); UROBILINOGEN,URINE >=8.0 E.U/dL (0.2-1.0)
[2020-02-11 09:55] LABS: COLOR,URINE DARK YELLOW (Yellow); UA COLLECTION TYPE VOIDED
[2020-02-11 09:58] LABS: NITRITES, URINE NEGATIVE (Neg)
[2020-02-11 10:00] LABS: BACTERIA,URINE FEW /HPF (Neg); MUCUS STRANDS MANY /LPF (Neg); RBC,URINE NONE SEEN /HPF (0-2); SQUAMOUS EPITHELIAL CELL,UR FEW /LPF (FEW); WBC,URINE 0-4 /HPF (0-4)
[2020-02-11 10:01] LABS: TRANSITIONAL EPI CELLS,URINE FEW /HPF
[2020-02-11] MEDS ORDERED: PANT-47 PO (10:27)
[2020-02-11] MEDS ORDERED: mag hydrox/Alum hydrox/simeth 30ml oral suspension PO ONE (10:30)
[2020-02-11] MEDS ORDERED: LIDOcaine Viscous 15ml cup MM ONE (10:30)
[2020-02-11] MEDS ORDERED: famotidine 20mg tablet PO ONE (10:30)
[2020-02-11 10:45] VITALS: BP 149/108
== END 2020-02-11 10:47 | disposition home or self-care (01) ==
LOC: ER 08:25
DX: K29.20 Alcoholic gastritis without bleeding (principal); K70.10 Alcoholic hepatitis without ascites; F10.10 Alcohol abuse, uncomplicated; I10 Essential (primary) hypertension; F41.9 Anxiety disorder, unspecified; F32.9 Major depressive disorder, single episode, unspecified; F20.9 Schizophrenia, unspecified; Z86.19 Personal history of other infectious and parasitic diseases; Z59.0 Homelessness; Z56.0 Unemployment, unspecified; Z60.2 Problems related to living alone; Y90.0 Blood alcohol level of less than 20 mg/100 ml; Z79.899 Other long term (current) drug therapy
CPT/HCPCS: 36415; 74176; 80053; 80320; 81001; 82150; 83690; 85025; 99284

== ENCOUNTER 2020-02-15 16:48 | Inpatient (IN) | payer MEDICAID ==
[~2020-02-15] VITALS: Ht 172.7 cm; Wt 125.0 kg
[~2020-02-15 16:48] MED LIST changes: +PANT-47 PO
--- NOTE | 2020-02-15 17:46 | NUR ---
Pt states his last drink was this morning. 12 oz beer.
[2020-02-15] MEDS ORDERED: thiamine 100mg/ml 2ml inj. IV ONE (17:50)
[2020-02-15] MEDS ORDERED: phenobarbital sod 130mg/ml inj. IV ONE ×3 (17:50→20:00)
[2020-02-15] MEDS: dextrose 5%-normal saline 1,000 ML IV SCH ×3 (18:25→22:00)
[2020-02-15 18:30] LABS: BASOPHILS # (AUTO) 0.2 X10'3 (0-0.2); BASOPHILS % (AUTO) 1.6 % (0-1); EOSINOPHILS # (AUTO) 0.1 X10'3 (0-0.9); EOSINOPHILS % (AUTO) 0.5 % (0-6); HEMATOCRIT 40.3 % (42.0-52.0); HEMOGLOBIN 13.7 g/dl (14.0-17.9); LYMPHOCYTES # (AUTO) 0.6 X10'3 (1.1-4.8); MEAN CORPUSCULAR HEMOGLOBIN 33.9 PG (27.0-31.0); MEAN CORPUSCULAR HGB CONC 33.9 g/dL (33.0-36.5); MEAN CORPUSCULAR VOLUME 99.8 FL (78-98); MEAN PLATELET VOLUME 7.9 FL (7.4-10.4); MONOCYTES # (AUTO) 1.6 X10'3 (0-0.9); MONOCYTES % (AUTO) 16.4 % (2-12); NEUTROPHILS # (AUTO) 7.5 X10'3 (1.8-7.7); NEUTROPHILS % (AUTO) 75.5 % (42-75); PLATELET COUNT 223 X10'3 (140-440); RED BLOOD COUNT 4.04 X10'6 (4.70-6.10); WHITE BLOOD COUNT 9.9 X10'3 (4.5-11.0)
[2020-02-15 18:44] LABS: ALANINE AMINOTRANSFERASE 95 U/L (12-78); ALBUMIN 3.1 G/DL (3.4-5.0); ALBUMIN/GLOBULIN RATIO 0.6 (1.1-1.5); ALKALINE PHOSPHATASE 188 IU/L (46-116); ANION GAP 14 (8-16); ASPARTATE AMINO TRANSFERASE 168 U/L (10-37); BILIRUBIN,TOTAL 2.1 MG/DL (0.1-1.0); BLOOD UREA NITROGEN 7 MG/DL (7-18); BUN/CREATININE RATIO 8.4 (5.4-32.0); CALCIUM 9.6 MG/DL (8.5-10.1); CHLORIDE 97 MMOL/L (99-107); CREATININE 0.83 MG/DL (0.60-1.10); GLUCOSE 90 MG/DL (70-104); LIPASE 153 U/L (73-393); POTASSIUM 3.8 MMOL/L (3.5-5.1); SODIUM 133 MMOL/L (135-145); TOTAL CARBON DIOXIDE 21.8 MMOL/L (24-32); TOTAL PROTEIN 8.5 G/DL (6.4-8.2); eGFR > 90 ML/MIN
[2020-02-15] MEDS ORDERED: METO1TAB12 PO (19:07)
[2020-02-15] MEDS ORDERED: GABA300C PO (19:07)
[2020-02-15] MEDS ORDERED: TRAZ-256 PO (19:08)
[2020-02-15] MEDS ORDERED: METO-411 PO ×2 (19:18→19:19)
[2020-02-15] MEDS ORDERED: LURA40TA3 PO (19:22)
[2020-02-15 19:36] LABS: PLATELET ESTIMATE NORMAL; TOTAL CELLS COUNTED 100
[2020-02-15] MEDS ORDERED: iohexol 300mg/ml 100ml inj. ONE (20:07)
[2020-02-15] MEDS ORDERED: temazepam 15mg capsule PO PRN (21:00)
--- NOTE | 2020-02-15 21:00 | NUR ---
PT GIVEN ICE WATER, PO CHALLENGE
[2020-02-15] MEDS ORDERED: phenobarbital inj 500 MG in normal saline 250ml IV soln 250 ML IV ONE (21:05)
[2020-02-15] MEDS ORDERED: phenobarbital inj 500 MG in normal saline 250ml IV soln 246.1538 ML IV ONE (21:28)
--- NOTE | 2020-02-15 21:30 | NUR ---
PT GIVEN SALTINE CRACKERS
--- NOTE | 2020-02-15 22:15 | NUR ---
ADVANCED DIET TO JELLO AND APPLESAUCE
[2020-02-15] MEDS ORDERED: bisacodyl 10mg suppository rectal RC PRN (23:15)
[2020-02-15] MEDS ORDERED: haloperidol 5mg tablet PO PRN (23:15)
[2020-02-15] MEDS ORDERED: magnesium Cl slow-release 64mg tablet PO PRN (23:15)
[2020-02-15] MEDS ORDERED: potassium CL 10mEq/100ml bag 100 ML IV PRN ×2 (23:15)
[2020-02-15] MEDS ORDERED: acetaminophen 325mg tablet PO PRN ×2 (23:15)
[2020-02-15] MEDS ORDERED: LORazepam 2 mg/ml vial IV PRN (23:15)
[2020-02-15] MEDS ORDERED: potassium Cl 20 mEq SR tablet PO PRN (23:15)
[2020-02-15] MEDS ORDERED: magnesium 2GM in 50ml NS 50 ML IV PRN (23:15)
[2020-02-15] MEDS ORDERED: HYDROcodone/acetaminophen 5mg/325mg tablet PO PRN (23:15)
[2020-02-15] MEDS ORDERED: magnesium hydroxide 30ml (MOM) UD suspension PO PRN (23:15)
[2020-02-15] MEDS ORDERED: ondansetron/PF 4mg/2ml inj IV PRN (23:15)
[2020-02-15] MEDS ORDERED: magnesium 4gm in 100ml NS 100 ML IV PRN (23:15)
[2020-02-15] MEDS ORDERED: mag hydrox/Alum hydrox/simeth 30ml oral suspension PO PRN (23:15)
[2020-02-15] MEDS ORDERED: haloperidol lactate 5mg/ml inj IM PRN (23:15)
--- NOTE | 2020-02-15 23:31 | NUR ---
PT GIVEN TURKEY SANDWICH AND WATER UPON REQUEST
[2020-02-15] MEDS: normal saline 1000ml 1,000 ML IV SCH (23:51)
[2020-02-16] MEDS ORDERED: thiamine inj. 100 MG, MVI, adult No.4 with vit. K 10 ML in dextrose 5% water 500ml 500 ML IV ONE ×3 (00:30)
[2020-02-16] MEDS ORDERED: folic acid 1mg/0.2ml inj IV ONE (00:35)
[2020-02-16 02:00] VITALS: BP 144/95
[2020-02-16] MEDS: HYDROcodone/acetaminophen 10/325mg tab PO PRN ×2 (02:37→08:08)
[2020-02-16 06:00] VITALS: BP 131/78
[2020-02-16 06:28] LABS: BASOPHILS # (AUTO) 0.1 X10'3 (0-0.2); EOSINOPHILS # (AUTO) 0.1 X10'3 (0-0.9); EOSINOPHILS % (AUTO) 1.8 % (0-6); HEMATOCRIT 35.9 % (42.0-52.0); LYMPHOCYTES % (AUTO) 14.9 % (21-51); MEAN CORPUSCULAR HEMOGLOBIN 33.4 PG (27.0-31.0); MEAN CORPUSCULAR HGB CONC 33.4 g/dL (33.0-36.5); MEAN CORPUSCULAR VOLUME 100.2 FL (78-98); MEAN PLATELET VOLUME 7.8 FL (7.4-10.4); MONOCYTES # (AUTO) 1.6 X10'3 (0-0.9); MONOCYTES % (AUTO) 22.9 % (2-12); NEUTROPHILS # (AUTO) 4.1 X10'3 (1.8-7.7); NEUTROPHILS % (AUTO) 59.4 % (42-75); PLATELET COUNT 155 X10'3 (140-440); RED BLOOD COUNT 3.58 X10'6 (4.70-6.10); RED CELL DISTRIBUTION WIDTH 15.1 % (11.5-14.5); WHITE BLOOD COUNT 6.8 X10'3 (4.5-11.0)
--- NOTE | 2020-02-16 06:35 | NUR ---
Report given to lisa Meade.
[2020-02-16 07:00] LABS: ALANINE AMINOTRANSFERASE 69 U/L (12-78); ALBUMIN 2.3 G/DL (3.4-5.0); ALBUMIN/GLOBULIN RATIO 0.5 (1.1-1.5); ALKALINE PHOSPHATASE 142 IU/L (46-116); ANION GAP 9 (8-16); ASPARTATE AMINO TRANSFERASE 114 U/L (10-37); BILIRUBIN,TOTAL 1.6 MG/DL (0.1-1.0); BLOOD UREA NITROGEN 7 MG/DL (7-18); CALCIUM 7.9 MG/DL (8.5-10.1); CHLORIDE 106 MMOL/L (99-107); CREATININE 0.87 MG/DL (0.60-1.10); GLUCOSE 115 MG/DL (70-104); POTASSIUM 3.4 MMOL/L (3.5-5.1); SODIUM 140 MMOL/L (135-145); TOTAL CARBON DIOXIDE 24.8 MMOL/L (24-32); TOTAL PROTEIN 6.8 G/DL (6.4-8.2); eGFR > 90 ML/MIN
[2020-02-16] MEDS: K and/or MAG REPLACEMENT MC SCH ×2 (07:04→19:25)
[2020-02-16] MEDS: sucralfate 1 gm tablet PO SCH ×4 (07:53→20:23)
[2020-02-16] MEDS: lurasidone 20mg tablet PO SCH (07:53)
[2020-02-16] MEDS: folic acid 1mg tablet PO SCH (07:53)
[2020-02-16] MEDS: thiamine 100mg tablet PO SCH (07:54)
[2020-02-16] MEDS: multivitamins, therapeutics tablet PO SCH (07:54)
[2020-02-16] MEDS: potassium Cl 20 mEq SR tablet PO PRN ×3 (07:54→17:51)
[2020-02-16] MEDS: pantoprazole 40mg Tablet.DR PO SCH ×2 (07:54→20:23)
[2020-02-16] MEDS: gabapentin 300mg capsule PO SCH ×2 (07:54→17:50)
[2020-02-16] MEDS: metoprolol succinate 25mg (24-HOUR) SR. Tablet PO SCH (07:55)
[2020-02-16 08:18] LABS: PLATELET ESTIMATE NORMAL; TOTAL CELLS COUNTED 100
[2020-02-16 08:19] LABS: GIANT PLATELET FEW; LARGE PLATELETS FEW
[2020-02-16] MEDS: normal saline 1000ml 1,000 ML IV SCH ×2 (09:15→20:29)
[2020-02-16 13:16] LABS: OCCULT BLOOD STOOL NEGATIVE (Neg)
[2020-02-16 18:00] VITALS: BP 155/106
--- NOTE | 2020-02-16 18:42 | NUR ---
Problems reprioritized. Patient report given, questions answered & plan of care reviewed with DG Russo.
[2020-02-16] MEDS: traZODone 50mg tablet PO SCH (20:23)
[2020-02-16 22:00] VITALS: BP 134/85
[2020-02-17] MEDS: HYDROcodone/acetaminophen 10/325mg tab PO PRN ×2 (03:29→20:09)
--- NOTE | 2020-02-17 05:58 | NUR ---
Report given to lisa Meade.
[2020-02-17 06:00] VITALS: BP 148/95
[2020-02-17 06:40] LABS: BASOPHILS # (AUTO) 0.1 X10'3 (0-0.2); EOSINOPHILS # (AUTO) 0.2 X10'3 (0-0.9); EOSINOPHILS % (AUTO) 3.7 % (0-6); HEMATOCRIT 36.7 % (42.0-52.0); HEMOGLOBIN 12.2 g/dl (14.0-17.9); MEAN CORPUSCULAR HEMOGLOBIN 33.2 PG (27.0-31.0); MEAN CORPUSCULAR HGB CONC 33.3 g/dL (33.0-36.5); MEAN CORPUSCULAR VOLUME 99.4 FL (78-98); MEAN PLATELET VOLUME 8.2 FL (7.4-10.4); MONOCYTES % (AUTO) 18.4 % (2-12); NEUTROPHILS # (AUTO) 3.2 X10'3 (1.8-7.7); NEUTROPHILS % (AUTO) 58.9 % (42-75); PLATELET COUNT 173 X10'3 (140-440); RED BLOOD COUNT 3.69 X10'6 (4.70-6.10); RED CELL DISTRIBUTION WIDTH 14.8 % (11.5-14.5); WHITE BLOOD COUNT 5.4 X10'3 (4.5-11.0)
--- NOTE | 2020-02-17 06:42 | NUR ---
Patient in room ORTHO 4011A. I have received report from DG Russo and had the opportunity to ask questions and assume patient care.
[2020-02-17 07:06] LABS: ALANINE AMINOTRANSFERASE 65 U/L (12-78); ALBUMIN 2.4 G/DL (3.4-5.0); ALBUMIN/GLOBULIN RATIO 0.5 (1.1-1.5); ALKALINE PHOSPHATASE 132 IU/L (46-116); ANION GAP 10 (8-16); ASPARTATE AMINO TRANSFERASE 96 U/L (10-37); BLOOD UREA NITROGEN 2 MG/DL (7-18); BUN/CREATININE RATIO 2.8 (5.4-32.0); CALCIUM 8.3 MG/DL (8.5-10.1); CHLORIDE 107 MMOL/L (99-107); CREATININE 0.71 MG/DL (0.60-1.10); GLUCOSE 96 MG/DL (70-104); SODIUM 141 MMOL/L (135-145); TOTAL CARBON DIOXIDE 24.4 MMOL/L (24-32); eGFR > 90 ML/MIN
[2020-02-17] MEDS: pantoprazole 40mg Tablet.DR PO SCH ×2 (07:50→20:08)
[2020-02-17] MEDS: sucralfate 1 gm tablet PO SCH ×4 (07:51→20:08)
[2020-02-17] MEDS: multivitamins, therapeutics tablet PO SCH (07:52)
[2020-02-17] MEDS: thiamine 100mg tablet PO SCH (07:52)
[2020-02-17] MEDS: folic acid 1mg tablet PO SCH (07:53)
[2020-02-17] MEDS: metoprolol succinate 25mg (24-HOUR) SR. Tablet PO SCH (07:55)
[2020-02-17] MEDS: gabapentin 300mg capsule PO SCH ×3 (07:56→16:25)
[2020-02-17] MEDS: lurasidone 20mg tablet PO SCH (07:56)
[2020-02-17] MEDS: K and/or MAG REPLACEMENT MC SCH ×2 (08:00→20:00)
[2020-02-17 08:15] VITALS: BP 123/87
[2020-02-17 08:31] LABS: TOTAL CELLS COUNTED 100
[2020-02-17 08:32] LABS: PLATELET ESTIMATE NORMAL
[2020-02-17] MEDS: normal saline 1000ml 1,000 ML IV SCH ×2 (08:57→15:55)
[2020-02-17 09:41] VITALS: BP 149/101
[2020-02-17 09:41] LABS: LIPASE 129 U/L (73-393)
--- NOTE | 2020-02-17 11:12 | NUR ---
Student Medication Administration: For this medication-pass time frame [id number], all medications were reviewed, administered and documented per hospital policy by Norma Smith. Student documentation:I have reviewed and agree with all interventions, assessments performed and documented by Norma Smith.
--- NOTE | 2020-02-17 11:44 | NUR ---
Problems reprioritized. Patient report given, questions answered & plan of care reviewed with
[2020-02-17 18:00] VITALS: BP 148/89
--- NOTE | 2020-02-17 18:35 | NUR ---
Problems reprioritized. Patient report given, questions answered & plan of care reviewed with DG Guzman.
[2020-02-17] MEDS: traZODone 50mg tablet PO SCH (20:08)
[2020-02-17 22:00] VITALS: BP 158/94
[2020-02-17] MEDS ORDERED: LORazepam 1 MG tablet PO PRN (23:15)
[2020-02-17] MEDS ORDERED: LORazepam 2 mg/ml vial IV PRN (23:15)
[2020-02-18] MEDS: normal saline 1000ml 1,000 ML IV SCH ×2 (01:45→11:11)
[2020-02-18] MEDS: HYDROcodone/acetaminophen 10/325mg tab PO PRN ×2 (05:47→11:10)
[2020-02-18 06:00] VITALS: BP 139/83
[2020-02-18 06:27] LABS: BASOPHILS # (AUTO) 0.1 X10'3 (0-0.2); BASOPHILS % (AUTO) 1.3 % (0-1); EOSINOPHILS # (AUTO) 0.2 X10'3 (0-0.9); EOSINOPHILS % (AUTO) 4.2 % (0-6); HEMATOCRIT 36.9 % (42.0-52.0); HEMOGLOBIN 12.4 g/dl (14.0-17.9); LYMPHOCYTES # (AUTO) 1.2 X10'3 (1.1-4.8); MEAN CORPUSCULAR HEMOGLOBIN 33.7 PG (27.0-31.0); MEAN CORPUSCULAR HGB CONC 33.6 g/dL (33.0-36.5); MEAN CORPUSCULAR VOLUME 100.1 FL (78-98); MEAN PLATELET VOLUME 8.3 FL (7.4-10.4); MONOCYTES # (AUTO) 0.9 X10'3 (0-0.9); MONOCYTES % (AUTO) 16.5 % (2-12); NEUTROPHILS # (AUTO) 2.9 X10'3 (1.8-7.7); PLATELET COUNT 206 X10'3 (140-440); RED BLOOD COUNT 3.69 X10'6 (4.70-6.10); RED CELL DISTRIBUTION WIDTH 14.5 % (11.5-14.5); WHITE BLOOD COUNT 5.3 X10'3 (4.5-11.0)
[2020-02-18 06:38] LABS: ALANINE AMINOTRANSFERASE 61 U/L (12-78); ALBUMIN 2.5 G/DL (3.4-5.0); ALBUMIN/GLOBULIN RATIO 0.5 (1.1-1.5); ALKALINE PHOSPHATASE 125 IU/L (46-116); ANION GAP 7 (8-16); ASPARTATE AMINO TRANSFERASE 86 U/L (10-37); BILIRUBIN,TOTAL 0.8 MG/DL (0.1-1.0); BLOOD UREA NITROGEN 2 MG/DL (7-18); BUN/CREATININE RATIO 2.4 (5.4-32.0); CALCIUM 8.5 MG/DL (8.5-10.1); CHLORIDE 106 MMOL/L (99-107); CREATININE 0.84 MG/DL (0.60-1.10); GLUCOSE 87 MG/DL (70-104); POTASSIUM 3.7 MMOL/L (3.5-5.1); SODIUM 141 MMOL/L (135-145); TOTAL CARBON DIOXIDE 27.9 MMOL/L (24-32); TOTAL PROTEIN 7.1 G/DL (6.4-8.2); eGFR > 90 ML/MIN
--- NOTE | 2020-02-18 06:41 | NUR ---
Problems reprioritized. Patient report given, questions answered & plan of care reviewed with DG Anthony.
[2020-02-18] MEDS: thiamine 100mg tablet PO SCH (07:20)
[2020-02-18] MEDS: lurasidone 20mg tablet PO SCH (07:20)
[2020-02-18] MEDS: sucralfate 1 gm tablet PO SCH ×2 (07:20→11:10)
[2020-02-18] MEDS: pantoprazole 40mg Tablet.DR PO SCH (07:20)
[2020-02-18] MEDS: multivitamins, therapeutics tablet PO SCH (07:20)
[2020-02-18] MEDS: gabapentin 300mg capsule PO SCH ×2 (07:20)
[2020-02-18] MEDS: metoprolol succinate 25mg (24-HOUR) SR. Tablet PO SCH (07:21)
[2020-02-18] MEDS: folic acid 1mg tablet PO SCH (07:21)
[2020-02-18] MEDS: K and/or MAG REPLACEMENT MC SCH (07:24)
[2020-02-18 07:27] LABS: LARGE PLATELETS FEW; PLATELET ESTIMATE NORMAL; TOTAL CELLS COUNTED 100
[2020-02-18 10:00] VITALS: BP 142/103
[2020-02-18] MEDS ORDERED: PANT-47 PO (10:44)
[2020-02-18] MEDS ORDERED: THIA100T70 PO (10:44)
[2020-02-18] MEDS ORDERED: FOLI0.4T2 PO (10:44)
--- NOTE | 2020-02-18 11:01 | NUR ---
PAGER ID: [phone] MESSAGE: [phone] Alexander Kent- patient would like to pain medication for D/C. Thank you Gabrielle [phone]
[2020-02-18] MEDS ORDERED: TRAM50TA2 PO ×2 (11:02→11:05)
--- NOTE | 2020-02-18 12:42 | NUR ---
Patient ready for discharge. PIV removed, cannula intact. Discharge instructions given to patient. Narcotic prescription handed to patient. All belongings gathered and sent home.
[2020-02-19] MEDS ORDERED: LORazepam 1 MG tablet PO PRN (23:15)
[2020-02-19] MEDS ORDERED: LORazepam 2 mg/ml vial IV PRN (23:15)
== END 2020-02-18 12:40 | disposition home or self-care (01) | DRG 241 ==
LOC: ER 16:48 → UNDOADMIN 23:12 → ED HOLD 23:12 → ORTHO 4S 02-16 01:30 → ED HOLD 02-16 01:30
PROVIDERS: ADMIT Family Medicine; ATTEND Family Medicine
DX: K29.20 Alcoholic gastritis without bleeding (principal); E87.1 Hypo-osmolality and hyponatremia; F10.230 Alcohol dependence with withdrawal, uncomplicated; F20.9 Schizophrenia, unspecified; F32.9 Major depressive disorder, single episode, unspecified; F41.9 Anxiety disorder, unspecified; I10 Essential (primary) hypertension; F17.200 Nicotine dependence, unspecified, uncomplicated; K70.30 Alcoholic cirrhosis of liver without ascites; Z80.42 Family history of malignant neoplasm of prostate; Z79.899 Other long term (current) drug therapy
CPT/HCPCS: 36415; 73030; 74177; 80053; 82272; 83690; 83735; 85007; 85025; 93005; 96361; 96365; 96375; 96376; 99285; G0378; J2060; J2560; J3411; J3490; J7030; J7042; J7050; J7060; Q9967

== ENCOUNTER 2020-05-19 15:40 | Emergency (ER) | payer MEDICAID ==
[~2020-05-19] VITALS: Ht 175.3 cm; Wt 118.2 kg
[~2020-05-19 15:40] MED LIST changes: -GABA-532 PO; +LURA40TA3 PO; -PALI6TAB6 PO; -PANT40TA54 PO; +THIA100T70 PO
[2020-05-19] MEDS ORDERED: normal saline 1000ML IV soln IV ONE (16:00)
[2020-05-19] MEDS ORDERED: LORazepam 2 mg/ml vial IV ONE ×3 (16:20→18:40)
[2020-05-19 16:58] LABS: BASOPHILS % (AUTO) 0.7 % (0-1); EOSINOPHILS % (AUTO) 0.2 % (0-6); HEMATOCRIT 41.9 % (42.0-52.0); LYMPHOCYTES # (AUTO) 0.6 X10'3 (1.1-4.8); LYMPHOCYTES % (AUTO) 10.1 % (21-51); MEAN CORPUSCULAR HGB CONC 33.4 g/dL (33.0-36.5); MEAN CORPUSCULAR VOLUME 98.7 FL (78-98); MEAN PLATELET VOLUME 8.2 FL (7.4-10.4); MONOCYTES # (AUTO) 0.7 X10'3 (0-0.9); MONOCYTES % (AUTO) 10.5 % (2-12); NEUTROPHILS # (AUTO) 4.8 X10'3 (1.8-7.7); NEUTROPHILS % (AUTO) 78.5 % (42-75); PLATELET COUNT 93 X10'3 (140-440); RED BLOOD COUNT 4.24 X10'6 (4.70-6.10); WHITE BLOOD COUNT 6.2 X10'3 (4.5-11.0)
[2020-05-19 17:07] LABS: ALANINE AMINOTRANSFERASE 79 U/L (12-78); ALBUMIN 3.2 G/DL (3.4-5.0); ALBUMIN/GLOBULIN RATIO 0.6 (1.1-1.5); ALKALINE PHOSPHATASE 239 IU/L (46-116); ANION GAP 14 (8-16); ASPARTATE AMINO TRANSFERASE 333 U/L (10-37); BLOOD UREA NITROGEN 6 MG/DL (7-18); BUN/CREATININE RATIO 7.9 (5.4-32.0); CALCIUM 8.9 MG/DL (8.5-10.1); CHLORIDE 99 MMOL/L (99-107); CREATININE 0.76 MG/DL (0.60-1.10); GLUCOSE 143 MG/DL (70-104); POTASSIUM 3.6 MMOL/L (3.5-5.1); SODIUM 134 MMOL/L (135-145); TOTAL CARBON DIOXIDE 20.8 MMOL/L (24-32); eGFR > 90 ML/MIN
[2020-05-19] MEDS ORDERED: cloNIDine 0.1 mg tablet PO ONE (17:15)
[2020-05-19 17:47] LABS: C-REACTIVE PROTEIN 3.39 MG/DL (0.0-0.5); LACTATE DEHYDROGENASE 343 U/L (85-227); MAGNESIUM 1.4 MG/DL (1.5-2.4)
[2020-05-19] MEDS ORDERED: thiamine 100mg/ml 2ml inj. IV ONE (17:50)
[2020-05-19] MEDS ORDERED: folic acid 1mg/0.2ml inj IV ONE (17:50)
[2020-05-19] MEDS ORDERED: magnesium 2GM in 50ml NS 50 ML IV ONE (17:50)
[2020-05-19 17:55] LABS: FERRITIN 1687 NG/ML (26-388)
[2020-05-19 17:58] LABS: ETHANOL < 0.010 GM/DL (0.0-0.010)
[2020-05-19 18:16] VITALS: BP 148/97
[2020-05-19] MEDS ORDERED: gabapentin 300mg capsule PO ONE (18:25)
[2020-05-19] MEDS ORDERED: famotidine/PF 10 mg/ml inj IV ONE (18:40)
[2020-05-19] MEDS ORDERED: ONDA4TAB6 PO (18:42)
[2020-05-19] MEDS ORDERED: GABA300C PO (18:42)
[2020-05-19] MEDS ORDERED: LORA-269 PO (18:42)
[2020-06-11] MEDS ORDERED: TRAZ-251 PO (09:29)
== END 2020-05-19 20:01 | disposition home or self-care (01) ==
LOC: ER 15:41
DX: F10.239 Alcohol dependence with withdrawal, unspecified (principal); Z20.828 Contact with and (suspected) exposure to other viral communicable diseases; I10 Essential (primary) hypertension; F12.90 Cannabis use, unspecified, uncomplicated; F15.90 Other stimulant use, unspecified, uncomplicated; Z56.0 Unemployment, unspecified; Z59.0 Homelessness; Z86.19 Personal history of other infectious and parasitic diseases; Z87.891 Personal history of nicotine dependence; Y90.0 Blood alcohol level of less than 20 mg/100 ml
CPT/HCPCS: 36415; 71045; 74176; 80053; 80320; 82728; 83605; 83615; 83735; 84145; 85025; 85384; 86140; 87040; 87635; 93005; 96361; 96365; 96375; 96376; 99291; C9803; J2060; J3411; J3475; J3490; J7030

== ENCOUNTER 2020-06-02 11:52 | Emergency (ER) | payer MEDICAID ==
[~2020-06-02] VITALS: Ht 175.3 cm; Wt 118.0 kg
[~2020-06-02 11:52] MED LIST changes: +LORA-269 PO; +ONDA4TAB6 PO
[2020-06-02 12:23] LABS: BASOPHILS # (AUTO) 0.1 X10'3 (0-0.2); BASOPHILS % (AUTO) 0.9 % (0-1); EOSINOPHILS # (AUTO) 0.1 X10'3 (0-0.9); EOSINOPHILS % (AUTO) 1.1 % (0-6); HEMATOCRIT 42.2 % (42.0-52.0); HEMOGLOBIN 13.9 g/dl (14.0-17.9); LYMPHOCYTES # (AUTO) 1.9 X10'3 (1.1-4.8); LYMPHOCYTES % (AUTO) 20.2 % (21-51); MEAN CORPUSCULAR HEMOGLOBIN 33.3 PG (27.0-31.0); MEAN CORPUSCULAR HGB CONC 33.1 g/dL (33.0-36.5); MEAN CORPUSCULAR VOLUME 100.8 FL (78-98); MEAN PLATELET VOLUME 8.1 FL (7.4-10.4); MONOCYTES # (AUTO) 1.2 X10'3 (0-0.9); MONOCYTES % (AUTO) 12.8 % (2-12); NEUTROPHILS # (AUTO) 6.1 X10'3 (1.8-7.7); PLATELET COUNT 320 X10'3 (140-440); RED BLOOD COUNT 4.18 X10'6 (4.70-6.10); RED CELL DISTRIBUTION WIDTH 15.3 % (11.5-14.5); WHITE BLOOD COUNT 9.5 X10'3 (4.5-11.0)
[2020-06-02 12:29] LABS: URINE AMPHETAMINE SCREEN NEGATIVE (Neg); URINE BARBITUATE SCREEN NEGATIVE (Neg); URINE BENZODIAZEPINES SCREEN NEGATIVE (Neg); URINE CANNABINOID SCREEN NEGATIVE (Neg); URINE COCAINE SCREEN NEGATIVE (Neg); URINE METHADONE SCREEN NEGATIVE (Neg); URINE OPIATE SCREEN NEGATIVE (Neg); URINE PHENCYCLIDINE SCREEN NEGATIVE (Neg)
--- NOTE | 2020-06-02 12:32 | NUR ---
Pt reports having constant auditory hallucinations, with relief only coming with the use of alcohol. Pt says it's like a "vacation from the thoughts." Pt is very cooperative and friendly towards staff. pt stated that he drank "a half pint of hard alchohol today, but normally drinks a half gallon." Pt denies being suicidal but has a hx of self harm.
[2020-06-02 12:35] LABS: ALBUMIN 3.1 G/DL (3.4-5.0); ANION GAP 8 (8-16); BILIRUBIN,TOTAL 0.6 MG/DL (0.1-1.0); BLOOD UREA NITROGEN 9 MG/DL (7-18); BUN/CREATININE RATIO 15.3 (5.4-32.0); CALCIUM 8.8 MG/DL (8.5-10.1); CHLORIDE 107 MMOL/L (99-107); CREATININE 0.59 MG/DL (0.60-1.10); GLUCOSE 141 MG/DL (70-104); POTASSIUM 3.7 MMOL/L (3.5-5.1); SODIUM 144 MMOL/L (135-145); TOTAL CARBON DIOXIDE 29.2 MMOL/L (24-32); TOTAL PROTEIN 9.1 G/DL (6.4-8.2); eGFR > 90 ML/MIN
[2020-06-02 12:36] LABS: ALANINE AMINOTRANSFERASE 115 U/L (12-78); ALBUMIN/GLOBULIN RATIO 0.5 (1.1-1.5); ALKALINE PHOSPHATASE 176 IU/L (46-116); ASPARTATE AMINO TRANSFERASE 239 U/L (10-37); ETHANOL 0.278 GM/DL (0.0-0.010)
[2020-06-02] MEDS ORDERED: proCHLORperazine 10mg tablet PO ONE (13:20)
[2020-06-02] MEDS ORDERED: LORazepam 1 MG tablet PO ONE (13:55)
--- NOTE | 2020-06-02 14:00 | NUR ---
SENT [facility]
--- NOTE | 2020-06-02 14:18 | NUR ---
breaking primary rn, pt is sleeping, will continue to monitor
--- NOTE | 2020-06-02 14:40 | NUR ---
pt states that he is still having neasua, i requested more nausea medication from PA, willl continue to monitor
[2020-06-02] MEDS ORDERED: ondansetron 4mg rapidly disintigrating tab PO ONE (14:55)
--- NOTE | 2020-06-02 15:23 | NUR ---
pt given zofran for nausea, pt reports moderate effectiveness. pt is now resting in bed.
--- NOTE | 2020-06-02 16:55 | NUR ---
pt is resting in bed, stated he is gonna try and get some sleep. no needs at this time.
[2020-06-02] MEDS ORDERED: metoclopramide 10mg tablet PO ONE (18:15)
[2020-06-02] MEDS ORDERED: diphenhydrAMINE 25mg capsule PO ONE (18:15)
[2020-06-02] MEDS ORDERED: famotidine 20mg tablet PO ONE (18:15)
[2020-06-02] MEDS ORDERED: ONDA4TAB6 PO (18:48)
[2020-06-02] MEDS ORDERED: THIA100T70 PO (18:49)
--- NOTE | 2020-06-02 19:04 | NUR ---
One to one with the patient for initial assessment. The patient reported continued nausea and medications given as ordered with med education provided. The patient is polite. Stated he is feeling sad. He feels that schizophrenia has ruined his life. He feels that the psychiatric medications are not helping him. The home medications were reviewed with the patient and it appears that the patient has been noncompliant with most of his ordered medications. He does admit to daily ETOH use. He stated that in the last 30 days there were only about 4 days that he did not drink. He stated he has not been sleeping and when he does try to sleep the voices wake him up. He denies suicidal thoughts. Visual hallucinations are denied. He was asked about thoughts to harm his mother and her boyfriend and he stated that he would try to go avoid going to their home. He stated he was angry at them "for the lies they tell me" but he did not elaborate.
[2020-06-02] MEDS ORDERED: ondansetron 4mg rapidly disintigrating tab PO SCH (20:00)
[2020-06-02] MEDS ORDERED: ondansetron 4mg rapidly disintigrating tab PO PRN (20:00)
[2020-06-02] MEDS: gabapentin 300mg capsule PO SCH (20:16)
--- NOTE | 2020-06-02 20:32 | NUR ---
The patient is currently sleeping on his bed and lightly snoring. He is focused on medications and when briefly awake to use the bathroom he was wanting medications to help him sleep but then promptly returned to bed and fell back asleep.
[2020-06-02] MEDS ORDERED: traZODone 50mg tablet PO ONE (21:55)
--- NOTE | 2020-06-02 22:21 | NUR ---
The patient requested something to sleep and MD made aware and trazodone ordered.
--- NOTE | 2020-06-03 00:05 | NUR ---
The patient appears to be sleeping
--- NOTE | 2020-06-03 01:02 | NUR ---
The patient appears to be sleeping
--- NOTE | 2020-06-03 02:51 | NUR ---
The patient appears to be sleeping
--- NOTE | 2020-06-03 04:43 | NUR ---
The patient appears to be sleeping
[2020-06-03] MEDS ORDERED: thiamine 100mg tablet PO SCH (08:00)
[2020-06-03] MEDS: gabapentin 300mg capsule PO SCH ×2 (08:47→13:46)
[2020-06-03] MEDS ORDERED: LORazepam 1 MG tablet PO PRN ×2 (11:05→14:10)
--- NOTE | 2020-06-03 12:57 | NUR ---
Patient eating lunch tray with no assistance.
--- NOTE | 2020-06-03 13:49 | NUR ---
PATIENT AMBULATED WNL TO NURSES STATION STATING THAT "MY AUDITORY AND VISUAL HALLUCINATIONS ARE BACK" PATIENT REPORTS SEEING THE CEILING MOVING LIKE A WAVE AND HEARING
--- NOTE | 2020-06-03 13:56 | NUR ---
PATIENT HEARING SELF DEPRICATING TERMS
--- NOTE | 2020-06-03 14:04 | NUR ---
SPOKE WITH DR BERGER, ORDERS RECEIVED
[2020-06-03] MEDS ORDERED: LORazepam 1 MG tablet PO ONE (14:05)
--- NOTE | 2020-06-03 14:29 | NUR ---
ENT CAN TALK WITH THEM. PER DR BERGER SPOKE WITH MENTAL HEALTH PA RUTHY DOMINGUEZ FOR POTENTIAL EVALUATION. LEX STATED THAT PATIENT WILL GO UP TO BEHAVIORAL HEALTH UNIT WHEN THE PATIENT IS ABLE TO TALK WITH THEM. I INFORMED RUTHY THAT THE PATIENT IS ABLE TO HAVE A CONVERSATION NOW
--- NOTE | 2020-06-03 16:28 | NUR ---
Pt has been accepted to go to [facility] this afternoon. pt resting in bed comfortably at this time.
[2020-06-03 17:19] VITALS: BP 151/112
[2020-06-03] MEDS ORDERED: METO-411 PO (19:01)
== END 2020-06-03 17:32 ==
LOC: ER 11:52
DX: S61.211A Laceration without foreign body of left index finger without damage to nail, initial encounter (principal); Z20.822 Contact with and (suspected) exposure to COVID-19; F10.129 Alcohol abuse with intoxication, unspecified; R74.8 Abnormal levels of other serum enzymes; R05 Cough; R00.0 Tachycardia, unspecified; R06.02 Shortness of breath; I10 Essential (primary) hypertension; F12.90 Cannabis use, unspecified, uncomplicated; F15.90 Other stimulant use, unspecified, uncomplicated; Z72.89 Other problems related to lifestyle; Z56.0 Unemployment, unspecified; Z59.0 Homelessness; Z86.19 Personal history of other infectious and parasitic diseases; Y90.8 Blood alcohol level of 240 mg/100 ml or more; T14.91XA Suicide attempt, initial encounter; X83.8XXA Intentional self-harm by other specified means, initial encounter; Y93.89 Activity, other specified; Y92.89 Other specified places as the place of occurrence of the external cause; Y99.8 Other external cause status
CPT/HCPCS: 36415; 80053; 80305; 80320; 85025; 87426; 99285; Q0163; J8597; Q0164

== ENCOUNTER 2020-08-08 20:01 | Emergency (ER) | payer MEDICAID ==
[~2020-08-08] VITALS: Ht 175.3 cm; Wt 128.9 kg
[~2020-08-08 20:01] MED LIST changes: -LORA-269 PO; -LURA40TA3 PO; -PANT-47 PO; +TRAZ-251 PO; -TRAZ-256 PO
--- NOTE | 2020-08-08 20:59 | NUR ---
SITTING CALMLY ON GURNEY.
[2020-08-08 21:40] LABS: BASOPHILS # (AUTO) 0.1 X10'3 (0-0.2); BASOPHILS % (AUTO) 1.3 % (0-1); EOSINOPHILS # (AUTO) 0.1 X10'3 (0-0.9); EOSINOPHILS % (AUTO) 1.1 % (0-6); HEMATOCRIT 41.4 % (42.0-52.0); HEMOGLOBIN 13.8 g/dl (14.0-17.9); LYMPHOCYTES # (AUTO) 2.1 X10'3 (1.1-4.8); LYMPHOCYTES % (AUTO) 28.6 % (21-51); MEAN CORPUSCULAR HEMOGLOBIN 31.6 PG (27.0-31.0); MEAN CORPUSCULAR HGB CONC 33.3 g/dL (33.0-36.5); MEAN CORPUSCULAR VOLUME 94.9 FL (78-98); MEAN PLATELET VOLUME 6.7 FL (7.4-10.4); MONOCYTES # (AUTO) 0.8 X10'3 (0-0.9); MONOCYTES % (AUTO) 10.8 % (2-12); NEUTROPHILS # (AUTO) 4.3 X10'3 (1.8-7.7); NEUTROPHILS % (AUTO) 58.2 % (42-75); PLATELET COUNT 146 X10'3 (140-440); RED BLOOD COUNT 4.37 X10'6 (4.70-6.10); WHITE BLOOD COUNT 7.4 X10'3 (4.5-11.0)
[2020-08-08 22:00] LABS: ALANINE AMINOTRANSFERASE 83 U/L (12-78); ALBUMIN 3.6 G/DL (3.4-5.0); ALBUMIN/GLOBULIN RATIO 0.7 (1.1-1.5); ALKALINE PHOSPHATASE 138 IU/L (46-116); ANION GAP 12 (8-16); ASPARTATE AMINO TRANSFERASE 152 U/L (10-37); BILIRUBIN,TOTAL 0.4 MG/DL (0.1-1.0); BLOOD UREA NITROGEN 10 MG/DL (7-18); BUN/CREATININE RATIO 15.2 (5.4-32.0); CALCIUM 8.9 MG/DL (8.5-10.1); CHLORIDE 106 MMOL/L (99-107); CREATININE 0.66 MG/DL (0.60-1.10); GLUCOSE 123 MG/DL (70-104); POTASSIUM 4.3 MMOL/L (3.5-5.1); SODIUM 143 MMOL/L (135-145); TOTAL PROTEIN 8.9 G/DL (6.4-8.2); eGFR > 90 ML/MIN
[2020-08-08 22:00] LABS: URINE AMPHETAMINE SCREEN POSITIVE (Neg); URINE BARBITUATE SCREEN NEGATIVE (Neg); URINE BENZODIAZEPINES SCREEN NEGATIVE (Neg); URINE CANNABINOID SCREEN NEGATIVE (Neg); URINE COCAINE SCREEN NEGATIVE (Neg); URINE METHADONE SCREEN NEGATIVE (Neg); URINE OPIATE SCREEN NEGATIVE (Neg); URINE PHENCYCLIDINE SCREEN NEGATIVE (Neg)
[2020-08-08 22:04] LABS: ACETAMINOPHEN < 2.0 UG/ML (10-30); ETHANOL 0.334 GM/DL (0.0-0.010)
--- NOTE | 2020-08-08 23:24 | NUR ---
Patient requesting pain meds for a headache, I advised Dr. Hutchinson.
[2020-08-08] MEDS ORDERED: acetaminophen 325mg tablet PO ONE (23:25)
--- NOTE | 2020-08-09 05:08 | NUR ---
Patient up and asking for a blanket.
--- NOTE | 2020-08-09 06:39 | NUR ---
Assumed care of patient. He is sitting up on the side of the bed.
[2020-08-09 09:48] VITALS: BP 149/102
== END 2020-08-09 10:35 | disposition home or self-care (01) ==
LOC: ER 20:01
DX: R45.851 Suicidal ideations (principal); Z20.822 Contact with and (suspected) exposure to COVID-19; F10.129 Alcohol abuse with intoxication, unspecified; I10 Essential (primary) hypertension; F41.9 Anxiety disorder, unspecified; F32.9 Major depressive disorder, single episode, unspecified; F20.9 Schizophrenia, unspecified; F12.90 Cannabis use, unspecified, uncomplicated; F15.90 Other stimulant use, unspecified, uncomplicated; Z86.19 Personal history of other infectious and parasitic diseases; Z72.89 Other problems related to lifestyle; Z60.2 Problems related to living alone; Z59.0 Homelessness; Z56.0 Unemployment, unspecified; Z88.8 Allergy status to other drugs, medicaments and biological substances; Z79.899 Other long term (current) drug therapy
CPT/HCPCS: 36415; 80053; 80305; 80320; 80329; 85025; 87426; 99285

== ENCOUNTER 2020-11-27 21:46 | Inpatient (IN) | payer MEDICAID ==
[~2020-11-27] VITALS: Ht 175.3 cm; Wt 125.0 kg
[2020-11-27 22:23] LABS: BASOPHILS # (AUTO) 0.1 X10'3 (0-0.2); BASOPHILS % (AUTO) 1.5 % (0-1); EOSINOPHILS # (AUTO) 0.1 X10'3 (0-0.9); EOSINOPHILS % (AUTO) 1.1 % (0-6); HEMATOCRIT 36.6 % (42.0-52.0); HEMOGLOBIN 12.3 g/dl (14.0-17.9); LYMPHOCYTES % (AUTO) 13.6 % (21-51); MEAN CORPUSCULAR HEMOGLOBIN 32.6 PG (27.0-31.0); MEAN CORPUSCULAR HGB CONC 33.8 g/dL (33.0-36.5); MEAN CORPUSCULAR VOLUME 96.7 FL (78-98); MEAN PLATELET VOLUME 7.7 FL (7.4-10.4); MONOCYTES # (AUTO) 0.9 X10'3 (0-0.9); MONOCYTES % (AUTO) 12.8 % (2-12); NEUTROPHILS # (AUTO) 5.3 X10'3 (1.8-7.7); PLATELET COUNT 108 X10'3 (140-440); RED BLOOD COUNT 3.78 X10'6 (4.70-6.10); RED CELL DISTRIBUTION WIDTH 17.1 % (11.5-14.5); WHITE BLOOD COUNT 7.4 X10'3 (4.5-11.0)
[2020-11-27 22:45] LABS: ALANINE AMINOTRANSFERASE 45 U/L (12-78); ALBUMIN 2.8 G/DL (3.4-5.0); ALKALINE PHOSPHATASE 214 IU/L (46-116); ANION GAP 11 (8-16); ASPARTATE AMINO TRANSFERASE 212 U/L (10-37); BILIRUBIN,TOTAL 5.1 MG/DL (0.1-1.0); BLOOD UREA NITROGEN 4 MG/DL (7-18); BUN/CREATININE RATIO 5.8 (5.4-32.0); CHLORIDE 102 MMOL/L (99-107); CREATININE 0.69 MG/DL (0.60-1.10); GLUCOSE 189 MG/DL (70-104); POTASSIUM 3.5 MMOL/L (3.5-5.1); SODIUM 139 MMOL/L (135-145); TOTAL CARBON DIOXIDE 26.2 MMOL/L (24-32); eGFR > 90 ML/MIN
[2020-11-27] MEDS ORDERED: normal saline 1000ML IV soln IVB ONE (22:55)
[2020-11-27 22:58] LABS: ALBUMIN/GLOBULIN RATIO 0.5 (1.1-1.5); TOTAL PROTEIN 8.4 G/DL (6.4-8.2)
[2020-11-27] MEDS ORDERED: phenobarbital inj 130 MG in normal saline 100ml IV soln 99 ML IV ONE (23:02)
[2020-11-27 23:34] LABS: ETHANOL 0.317 GM/DL (0.0-0.010)
[2020-11-27] MEDS ORDERED: folic acid 1mg tablet PO ONE (23:50)
[2020-11-27] MEDS ORDERED: multivitamins, therapeutics tablet PO ONE (23:50)
[2020-11-27] MEDS ORDERED: thiamine 100mg tablet PO ONE (23:50)
[2020-11-28 00:04] LABS: URINE AMPHETAMINE SCREEN POSITIVE (Neg); URINE BARBITUATE SCREEN NEGATIVE (Neg); URINE BENZODIAZEPINES SCREEN NEGATIVE (Neg); URINE CANNABINOID SCREEN NEGATIVE (Neg); URINE COCAINE SCREEN NEGATIVE (Neg); URINE METHADONE SCREEN NEGATIVE (Neg); URINE OPIATE SCREEN NEGATIVE (Neg); URINE PHENCYCLIDINE SCREEN NEGATIVE (Neg)
[2020-11-28] MEDS ORDERED: ondansetron/PF 4mg/2ml inj IV ONE (00:05)
[2020-11-28] MEDS ORDERED: NALT50TA PO (02:11)
[2020-11-28] MEDS ORDERED: phenobarbital inj 130 MG in normal saline 100ml IV soln 99 ML IV ONE (02:50)
[2020-11-28 03:03] LABS: LIPASE 416 U/L (73-393)
[2020-11-28] MEDS ORDERED: loperamide 2mg capsule PO PRN ×2 (03:40)
[2020-11-28] MEDS ORDERED: bisacodyl 10mg suppository rectal RC PRN (03:40)
[2020-11-28] MEDS ORDERED: morphine 2 MG/ML inj. syringe IV PRN (03:40)
[2020-11-28] MEDS ORDERED: diphenhydrAMINE 25mg capsule PO PRN (03:40)
[2020-11-28] MEDS ORDERED: dextrose 50%-water 50ml dispensing syringe IV PRN (03:40)
[2020-11-28] MEDS ORDERED: HYDROcodone/acetaminophen 5mg/325mg tablet PO PRN (03:40)
[2020-11-28] MEDS ORDERED: ondansetron/PF 4mg/2ml inj IV PRN (03:40)
[2020-11-28] MEDS ORDERED: magnesium hydroxide 30ml (MOM) UD suspension PO PRN (03:40)
[2020-11-28] MEDS ORDERED: ondansetron 4mg rapidly disintigrating tab PO PRN (03:40)
[2020-11-28] MEDS: dextrose 5%-1/2 normal saline 1,000 ML IV SCH ×3 (03:40→23:40)
[2020-11-28] MEDS ORDERED: HYDROmorphone inj. 0.5 MG/0.5 ML DISP.SYRIN IV PRN (03:40)
[2020-11-28] MEDS ORDERED: acetaminophen 325mg tablet PO PRN ×2 (03:40)
[2020-11-28] MEDS ORDERED: haloperidol 5mg tablet PO PRN (03:40)
[2020-11-28] MEDS ORDERED: mag hydrox/Alum hydrox/simeth 30ml oral suspension PO PRN (03:40)
[2020-11-28] MEDS ORDERED: cyclobenzaprine 10mg tablet PO PRN (03:40)
[2020-11-28] MEDS: cloNIDine 0.1 MG/24 HOUR patch (7 day patch) TD SCH (04:13)
--- NOTE | 2020-11-28 05:54 | NUR ---
RT at bedside with C PAP.
[2020-11-28 06:15] LABS: PARTIAL THROMBOPLASTIN TIME 32 SECONDS (22-32)
[2020-11-28 06:20] LABS: CREATINE KINASE 239 U/L (39-308); MAGNESIUM 1.5 MG/DL (1.5-2.4)
[2020-11-28 06:30] LABS: PHOSPHORUS 3.4 MG/DL (2.3-4.5)
[2020-11-28] MEDS: metoprolol succinate 25mg (24-HOUR) SR. Tablet PO SCH (07:12)
[2020-11-28] MEDS: pantoprazole 40mg Tablet.DR PO SCH (07:12)
[2020-11-28] MEDS: nicotine 21mg patch - 24 hr TD SCH ×2 (07:12→07:25)
[2020-11-28] MEDS: multivitamins, therapeutics tablet PO SCH (07:12)
[2020-11-28] MEDS: lactulose 20gm/30ml cup PO SCH ×2 (07:13→20:41)
[2020-11-28] MEDS: docusate sod 100mg capsule PO SCH ×2 (07:13→20:00)
[2020-11-28] MEDS: thiamine inj. 100 MG in normal saline 100ml IV soln 100 ML IV SCH (07:19)
[2020-11-28] MEDS: folic acid 1mg/0.2ml inj IV SCH (07:19)
[2020-11-28] MEDS: rifaximin 550mg tablet PO SCH ×2 (07:19→21:51)
--- NOTE | 2020-11-28 07:25 | NUR ---
Pt refused nicotine patch, stating that he does not smoke, and "are you sure you have the right katia?". Non-admin'd.
[2020-11-28] MEDS: aspirin 81mg tab.chew PO SCH (07:52)
[2020-11-28] MEDS: LORazepam 2 mg/ml vial IV PRN ×5 (07:52→22:51)
[2020-11-28] MEDS ORDERED: folic acid inj. 2 MG, thiamine inj. 100 MG, MVI, adult No.4 with vit. K 10 ML in dextro... IV SCH ×4 (08:00)
[2020-11-28] MEDS ORDERED: heparin, porcine 5000 units/ml vial SQ SCH (08:00)
[2020-11-28] MEDS ORDERED: albuterol 1.25 MG/3 ML (1/2 strength) nebule NEB PRN (08:05)
[2020-11-28 09:56] LABS: ALANINE AMINOTRANSFERASE 38 U/L (12-78); ALBUMIN 2.6 G/DL (3.4-5.0); ALKALINE PHOSPHATASE 198 IU/L (46-116); ANION GAP 13 (8-16); ASPARTATE AMINO TRANSFERASE 207 U/L (10-37); BILIRUBIN,TOTAL 5.2 MG/DL (0.1-1.0); BLOOD UREA NITROGEN 4 MG/DL (7-18); BUN/CREATININE RATIO 6.3 (5.4-32.0); CALCIUM 7.7 MG/DL (8.5-10.1); CHLORIDE 103 MMOL/L (99-107); CREATININE 0.63 MG/DL (0.60-1.10); GLUCOSE 151 MG/DL (70-104); POTASSIUM 3.3 MMOL/L (3.5-5.1); SODIUM 140 MMOL/L (135-145); eGFR > 90 ML/MIN
[2020-11-28 10:02] LABS: ALBUMIN/GLOBULIN RATIO 0.5 (1.1-1.5); TOTAL PROTEIN 7.6 G/DL (6.4-8.2)
[2020-11-28 10:10] LABS: BASOPHILS # (AUTO) 0.1 X10'3 (0-0.2); BASOPHILS % (AUTO) 1.2 % (0-1); EOSINOPHILS # (AUTO) 0.1 X10'3 (0-0.9); EOSINOPHILS % (AUTO) 1.1 % (0-6); HEMATOCRIT 35.9 % (42.0-52.0); HEMOGLOBIN 12.2 g/dl (14.0-17.9); LYMPHOCYTES # (AUTO) 0.6 X10'3 (1.1-4.8); LYMPHOCYTES % (AUTO) 10.9 % (21-51); MEAN CORPUSCULAR HEMOGLOBIN 32.6 PG (27.0-31.0); MEAN CORPUSCULAR HGB CONC 33.8 g/dL (33.0-36.5); MEAN CORPUSCULAR VOLUME 96.4 FL (78-98); MEAN PLATELET VOLUME 7.4 FL (7.4-10.4); MONOCYTES # (AUTO) 0.7 X10'3 (0-0.9); MONOCYTES % (AUTO) 12.7 % (2-12); NEUTROPHILS # (AUTO) 4.1 X10'3 (1.8-7.7); NEUTROPHILS % (AUTO) 74.1 % (42-75); PLATELET COUNT 88 X10'3 (140-440); RED BLOOD COUNT 3.73 X10'6 (4.70-6.10); RED CELL DISTRIBUTION WIDTH 17.6 % (11.5-14.5); WHITE BLOOD COUNT 5.5 X10'3 (4.5-11.0)
[2020-11-28] MEDS ORDERED: albuterol 2.5 MG/3 ML nebule NEB PRN (16:45)
[2020-11-28] MEDS ORDERED: temazepam 15mg capsule PO PRN (21:00)
[2020-11-28] MEDS: morphine 2 MG/ML inj. syringe IV PRN (21:55)
--- NOTE | 2020-11-28 23:00 | NUR ---
Patient incontinent of stool and urine and out of bed. Floor cleaned, patient cleaned up and fresh linens placed.
[2020-11-29] MEDS: LORazepam 2 mg/ml vial IV PRN ×9 (00:50→20:46)
[2020-11-29] MEDS: morphine 2 MG/ML inj. syringe IV PRN ×2 (01:47→20:46)
--- NOTE | 2020-11-29 02:07 | NUR ---
Patient out of bed, incontinent of urine. Floor cleaned, patient gown and linens changed. Patient reassured and reoriented, call light clipped to his gown.
[2020-11-29 03:20] LABS: BASOPHILS # (AUTO) 0.1 X10'3 (0-0.2); BASOPHILS % (AUTO) 1.3 % (0-1); EOSINOPHILS # (AUTO) 0.1 X10'3 (0-0.9); EOSINOPHILS % (AUTO) 1.8 % (0-6); HEMATOCRIT 35.4 % (42.0-52.0); LYMPHOCYTES # (AUTO) 0.8 X10'3 (1.1-4.8); LYMPHOCYTES % (AUTO) 14.8 % (21-51); MEAN CORPUSCULAR HEMOGLOBIN 33.2 PG (27.0-31.0); MEAN CORPUSCULAR HGB CONC 33.9 g/dL (33.0-36.5); MEAN CORPUSCULAR VOLUME 97.9 FL (78-98); MEAN PLATELET VOLUME 8.2 FL (7.4-10.4); MONOCYTES % (AUTO) 16.9 % (2-12); NEUTROPHILS # (AUTO) 3.7 X10'3 (1.8-7.7); NEUTROPHILS % (AUTO) 65.2 % (42-75); PLATELET COUNT 80 X10'3 (140-440); RED BLOOD COUNT 3.62 X10'6 (4.70-6.10); RED CELL DISTRIBUTION WIDTH 17.3 % (11.5-14.5); WHITE BLOOD COUNT 5.6 X10'3 (4.5-11.0)
[2020-11-29 03:39] LABS: ALANINE AMINOTRANSFERASE 42 U/L (12-78); ALBUMIN 2.6 G/DL (3.4-5.0); ALKALINE PHOSPHATASE 200 IU/L (46-116); ASPARTATE AMINO TRANSFERASE 207 U/L (10-37); BILIRUBIN,TOTAL 8.3 MG/DL (0.1-1.0); BLOOD UREA NITROGEN 3 MG/DL (7-18); BUN/CREATININE RATIO 4.7 (5.4-32.0); CALCIUM 8.2 MG/DL (8.5-10.1); CHLORIDE 98 MMOL/L (99-107); CREATININE 0.64 MG/DL (0.60-1.10); GLUCOSE 128 MG/DL (70-104); HDL CHOLESTEROL 15 MG/DL (35-60); LDL CHOLESTEROL 72 MG/DL (50-100); TOTAL CARBON DIOXIDE 24.9 MMOL/L (24-32); eGFR > 90 ML/MIN
[2020-11-29 04:23] LABS: ALBUMIN/GLOBULIN RATIO 0.5 (1.1-1.5); ANION GAP 6 (8-16); CHOL/HDL RATIO 6.3 (0.00-4.99); CHOLESTEROL 95 MG/DL (0-200); POTASSIUM 3.4 MMOL/L (3.5-5.1); SODIUM 129 MMOL/L (135-145); TRIGLYCERIDES 107 MG/DL (20-135)
--- NOTE | 2020-11-29 04:55 | NUR ---
Dr. Corona notified of morning lab results; new order received for NS @ 100 mls/hr, d/c current IVF.
[2020-11-29] MEDS: normal saline 1000ml 1,000 ML IV SCH ×3 (05:01→20:50)
[2020-11-29] MEDS ORDERED: potassium Cl 40MEQ/1/2NS 520ml 520 ML IV PRN (05:10)
[2020-11-29] MEDS ORDERED: potassium Cl 20 mEq SR tablet PO PRN ×2 (05:10)
[2020-11-29] MEDS: K and/or MAG REPLACEMENT MC SCH ×2 (06:08→20:00)
[2020-11-29] MEDS: potassium Cl 40MEQ/1/2NS 520ml 520 ML IV PRN (06:09)
--- NOTE | 2020-11-29 07:04 | NUR ---
Patient in room ED 9. I have received report from Ana Lilia CONTE and had the opportunity to ask questions and assume patient care.
--- NOTE | 2020-11-29 07:58 | NUR ---
PT PULLS OUT IV RESTART ANOTHER TO A 20G RIGHT HAND. CLEAN UP PT AND CHANGE BEDDING. CLEAN FLOOR DUE TO URINE. PT COOPERATIVE.
[2020-11-29 08:15] VITALS: BP 148/98
[2020-11-29] MEDS: thiamine inj. 100 MG in normal saline 100ml IV soln 100 ML IV SCH (09:01)
[2020-11-29] MEDS: multivitamins, therapeutics tablet PO SCH (09:01)
[2020-11-29] MEDS: metoprolol succinate 25mg (24-HOUR) SR. Tablet PO SCH (09:05)
[2020-11-29] MEDS: lactulose 20gm/30ml cup PO SCH ×2 (09:06→20:33)
[2020-11-29] MEDS: docusate sod 100mg capsule PO SCH ×2 (09:06→20:33)
[2020-11-29] MEDS: aspirin 81mg tab.chew PO SCH (09:06)
[2020-11-29] MEDS: nicotine 21mg patch - 24 hr TD SCH (09:06)
[2020-11-29] MEDS: pantoprazole 40mg Tablet.DR PO SCH (09:15)
[2020-11-29 09:27] LABS: CLARITY,URINE CLEAR (Clear); GLUCOSE, URINE NEGATIVE (Neg); KETONES,URINE NEGATIVE (Neg); LEUKOCYTE ESTERASE ,URINE NEGATIVE (Neg); NITRITES, URINE NEGATIVE (Neg); OCCULT BLOOD,URINE NEGATIVE (Neg); PROTEIN,URINE NEGATIVE (Neg)
[2020-11-29 09:32] LABS: COLOR,URINE DARK YELLOW (Yellow); UA COLLECTION TYPE NON-SPECIFIED
[2020-11-29] MEDS: rifaximin 550mg tablet PO SCH ×2 (09:55→20:33)
[2020-11-29] MEDS: folic acid 1mg/0.2ml inj IV SCH (09:55)
[2020-11-29 11:00] VITALS: BP 140/78
[2020-11-29 15:00] VITALS: BP 137/66
[2020-11-29 18:00] VITALS: BP 150/96
--- NOTE | 2020-11-29 18:06 | NUR ---
Problems reprioritized. Patient report given, questions answered & plan of care reviewed with Frank CONTE at bedside.
--- NOTE | 2020-11-29 18:08 | NUR ---
Frank's assignment changed. not taking patient
--- NOTE | 2020-11-29 18:28 | NUR ---
Problems reprioritized. Patient report given, questions answered & plan of care reviewed with Radha CONTE.
--- NOTE | 2020-11-29 18:30 | NUR ---
Patient in room PCU 3028A. I have received report from DG Burns and had the opportunity to ask questions and assume patient care.
[2020-11-29 22:00] VITALS: BP 151/98
[2020-11-30 02:00] VITALS: BP 139/84
[2020-11-30] MEDS: LORazepam 1 MG tablet PO PRN ×3 (04:34→20:33)
[2020-11-30] MEDS: normal saline 1000ml 1,000 ML IV SCH (04:35)
[2020-11-30 06:00] VITALS: BP 132/84
[2020-11-30 06:03] LABS: BASOPHILS # (AUTO) 0.1 X10'3 (0-0.2); EOSINOPHILS # (AUTO) 0.2 X10'3 (0-0.9); EOSINOPHILS % (AUTO) 3.3 % (0-6); HEMATOCRIT 34.6 % (42.0-52.0); HEMOGLOBIN 11.7 g/dl (14.0-17.9); LYMPHOCYTES # (AUTO) 0.7 X10'3 (1.1-4.8); MONOCYTES # (AUTO) 0.9 X10'3 (0-0.9)
[2020-11-30 06:07] LABS: BASOPHILS % (AUTO) 1.3 % (0-1); LYMPHOCYTES % (AUTO) 13.5 % (21-51); MEAN CORPUSCULAR HEMOGLOBIN 33.7 PG (27.0-31.0); MEAN CORPUSCULAR HGB CONC 33.9 g/dL (33.0-36.5); MEAN CORPUSCULAR VOLUME 99.3 FL (78-98); MEAN PLATELET VOLUME 8.7 FL (7.4-10.4); NEUTROPHILS # (AUTO) 3.1 X10'3 (1.8-7.7); NEUTROPHILS % (AUTO) 62.9 % (42-75); PLATELET COUNT 82 X10'3 (140-440); RED BLOOD COUNT 3.48 X10'6 (4.70-6.10); RED CELL DISTRIBUTION WIDTH 17.5 % (11.5-14.5)
[2020-11-30 06:08] LABS: ALANINE AMINOTRANSFERASE 38 U/L (12-78); ALBUMIN 2.6 G/DL (3.4-5.0); ALKALINE PHOSPHATASE 191 IU/L (46-116); ANION GAP 10 (8-16); ASPARTATE AMINO TRANSFERASE 157 U/L (10-37); BILIRUBIN,TOTAL 8.9 MG/DL (0.1-1.0); BLOOD UREA NITROGEN 3 MG/DL (7-18); BUN/CREATININE RATIO 4.6 (5.4-32.0); CALCIUM 8.6 MG/DL (8.5-10.1); CHLORIDE 104 MMOL/L (99-107); CREATININE 0.65 MG/DL (0.60-1.10); GLUCOSE 90 MG/DL (70-104); POTASSIUM 3.8 MMOL/L (3.5-5.1); SODIUM 140 MMOL/L (135-145); TOTAL CARBON DIOXIDE 26.3 MMOL/L (24-32); eGFR > 90 ML/MIN
--- NOTE | 2020-11-30 06:14 | NUR ---
Problems reprioritized. Patient report given, questions answered & plan of care reviewed with DG Garcia.
[2020-11-30 06:18] LABS: ALBUMIN/GLOBULIN RATIO 0.5 (1.1-1.5); TOTAL PROTEIN 7.7 G/DL (6.4-8.2)
--- NOTE | 2020-11-30 06:52 | NUR ---
Patient in room PCU 3028. I have received report from Radha Snyder and had the opportunity to ask questions and assume patient care.
[2020-11-30] MEDS: aspirin 81mg tab.chew PO SCH (07:56)
[2020-11-30] MEDS: lactulose 20gm/30ml cup PO SCH ×4 (07:56→20:26)
[2020-11-30] MEDS: thiamine inj. 100 MG in normal saline 100ml IV soln 100 ML IV SCH (07:56)
[2020-11-30] MEDS: metoprolol succinate 25mg (24-HOUR) SR. Tablet PO SCH (07:56)
[2020-11-30] MEDS: multivitamins, therapeutics tablet PO SCH (07:57)
[2020-11-30] MEDS: rifaximin 550mg tablet PO SCH ×2 (07:57→20:26)
[2020-11-30] MEDS: pantoprazole 40mg Tablet.DR PO SCH (07:57)
[2020-11-30] MEDS: nicotine 21mg patch - 24 hr TD SCH ×2 (07:57→08:00)
[2020-11-30] MEDS: docusate sod 100mg capsule PO SCH ×2 (07:58→19:36)
[2020-11-30] MEDS: folic acid 1mg/0.2ml inj IV SCH (07:59)
[2020-11-30] MEDS: CefTRIAXone/D5W-Rocephin 1gm 50 ML IV SCH (07:59)
[2020-11-30] MEDS: K and/or MAG REPLACEMENT MC SCH ×2 (08:00→19:36)
[2020-11-30 08:19] LABS: ANISOCYTOSIS 1+; PLATELET ESTIMATE DECREASED
[2020-11-30] MEDS: budesonide 0.5mg/2ml UD nebule IH SCH ×2 (08:40→19:54)
[2020-11-30 11:00] VITALS: BP 132/84
--- NOTE | 2020-11-30 11:00 | NUR ---
Md Evans PAGER ID: [phone] MESSAGE: Jose HACKETTU Ext [phone]. pt [facility] room 3023I. Can I upgrade his diet to regular. Please advise.
--- NOTE | 2020-11-30 13:22 | NUR ---
Pt sat up in bed attempting to stand up pulling on his IV and pulled it out. Pressure applied. and canula was intact.
--- NOTE | 2020-11-30 15:17 | NUR ---
paged Dr. Evans regarding Telemetry order PAGER ID: [phone] MESSAGE: [facility] [id number] Alexander Kent on ETOH protocol, Telemetry order needs renew. May we have a telemetry order. Katy CONTE [phone]
[2020-11-30 18:00] VITALS: BP 143/83
--- NOTE | 2020-11-30 18:29 | NUR ---
Problems reprioritized. Patient report given, questions answered & plan of care reviewed with Luci Snyder.
[2020-11-30] MEDS: ipratropium/albuterol 3ml nebule NEB PRN (19:54)
[2020-11-30] MEDS: haloperidol lactate 5mg/ml inj IM PRN (21:28)
[2020-11-30 22:00] VITALS: BP 125/77
--- NOTE | 2020-11-30 22:01 | NUR ---
PAGER ID: [phone] MESSAGE: Alexander Kent 35M rm [id number] Hx Schizophrenia, ETOH, depression, Anxi, meth use Admitted for Chest Pain, SOB, and ETOH withdrawal Pt became combative w/sitter and I. Administered Haldol IM. Can we have an order for restraints? Luci [phone] Dr Corona called back with an order for restraints.
[2020-11-30] MEDS: LORazepam 2 mg/ml vial IV PRN (23:02)
[2020-11-30] MEDS ORDERED: haloperidol lactate 5mg/ml inj IM ONE (23:30)
[2020-11-30] MEDS ORDERED: diphenhydrAMINE 50 mg/ml inj IV ONE (23:30)
--- NOTE | 2020-11-30 23:32 | NUR ---
PAGER ID: [phone] MESSAGE: Alexander Kent 35M rm [id number] Hx Schiz, ETOH, depression, Anxi, meth use Adm for Ch pn, SOB, and ETOH withdrawal Pt has had Haldol IM, Ativan PO and IV, he broke his restraint. Can I get an order for Geodon IM and benadryl IV? Luci [phone] Dr Corona ordered 5mg Geodon IM once and 25mg Benadryl IV once
[2020-12-01] MEDS: haloperidol lactate 5mg/ml inj IM PRN (05:49)
--- NOTE | 2020-12-01 06:25 | NUR ---
Patient in room PCU 3028. I have received report from Luci CONTE and had the opportunity to ask questions and assume patient care. Pt supine in bed, agitated stating "i must run free for my vitality." therapeutic conversation employed and moderately effective. pt continue in 3 point soft restraints, CRM intact. breathing unlabored and even. sitter at bedside.
--- NOTE | 2020-12-01 06:31 | NUR ---
Problems reprioritized. Patient bedside report given, questions answered & plan of care reviewed with DG Odonnell.
[2020-12-01 07:00] VITALS: BP 132/77
[2020-12-01] MEDS: budesonide 0.5mg/2ml UD nebule IH SCH ×2 (07:11→19:51)
[2020-12-01] MEDS: pantoprazole 40mg Tablet.DR PO SCH ×2 (07:30→07:37)
[2020-12-01] MEDS: CefTRIAXone/D5W-Rocephin 1gm 50 ML IV SCH (07:35)
[2020-12-01] MEDS: nicotine 21mg patch - 24 hr TD SCH (07:36)
[2020-12-01] MEDS: metoprolol succinate 25mg (24-HOUR) SR. Tablet PO SCH ×2 (07:37→08:00)
[2020-12-01] MEDS: multivitamins, therapeutics tablet PO SCH ×2 (07:37→08:00)
[2020-12-01] MEDS: rifaximin 550mg tablet PO SCH ×3 (07:37→19:29)
[2020-12-01] MEDS: aspirin 81mg tab.chew PO SCH ×2 (07:37→08:30)
[2020-12-01] MEDS: folic acid 1mg/0.2ml inj IV SCH (07:38)
[2020-12-01] MEDS: lactulose 20gm/30ml cup PO SCH ×5 (07:38→20:45)
[2020-12-01] MEDS: docusate sod 100mg capsule PO SCH ×2 (07:38→19:29)
[2020-12-01] MEDS: LORazepam 2 mg/ml vial IV PRN (07:58)
[2020-12-01] MEDS: normal saline 1000ml 1,000 ML IV SCH ×2 (07:59→17:45)
[2020-12-01] MEDS: K and/or MAG REPLACEMENT MC SCH ×2 (08:00→19:29)
[2020-12-01 08:59] LABS: BASOPHILS # (AUTO) 0.1 X10'3 (0-0.2); BASOPHILS % (AUTO) 1.2 % (0-1); EOSINOPHILS # (AUTO) 0.1 X10'3 (0-0.9); EOSINOPHILS % (AUTO) 1.7 % (0-6); HEMOGLOBIN 11.6 g/dl (14.0-17.9); LYMPHOCYTES # (AUTO) 0.7 X10'3 (1.1-4.8); LYMPHOCYTES % (AUTO) 12.8 % (21-51); MEAN CORPUSCULAR HEMOGLOBIN 33.8 PG (27.0-31.0); MEAN CORPUSCULAR HGB CONC 34.1 g/dL (33.0-36.5); MEAN PLATELET VOLUME 8.8 FL (7.4-10.4); MONOCYTES % (AUTO) 19.1 % (2-12); NEUTROPHILS # (AUTO) 3.5 X10'3 (1.8-7.7); NEUTROPHILS % (AUTO) 65.2 % (42-75); PLATELET COUNT 87 X10'3 (140-440); RED BLOOD COUNT 3.43 X10'6 (4.70-6.10); RED CELL DISTRIBUTION WIDTH 18.2 % (11.5-14.5); WHITE BLOOD COUNT 5.4 X10'3 (4.5-11.0)
[2020-12-01 09:16] LABS: ALANINE AMINOTRANSFERASE 33 U/L (12-78); ALBUMIN 2.4 G/DL (3.4-5.0); ALKALINE PHOSPHATASE 157 IU/L (46-116); ANION GAP 14 (8-16); ASPARTATE AMINO TRANSFERASE 143 U/L (10-37); BILIRUBIN,TOTAL 9.6 MG/DL (0.1-1.0); BLOOD UREA NITROGEN 7 MG/DL (7-18); BUN/CREATININE RATIO 10.4 (5.4-32.0); CALCIUM 8.4 MG/DL (8.5-10.1); CHLORIDE 104 MMOL/L (99-107); CREATININE 0.67 MG/DL (0.60-1.10); GLUCOSE 97 MG/DL (70-104); SODIUM 142 MMOL/L (135-145); TOTAL CARBON DIOXIDE 24.2 MMOL/L (24-32); eGFR > 90 ML/MIN
[2020-12-01 09:22] LABS: ALBUMIN/GLOBULIN RATIO 0.5 (1.1-1.5); POTASSIUM 3.4 MMOL/L (3.5-5.1); TOTAL PROTEIN 7.4 G/DL (6.4-8.2)
--- NOTE | 2020-12-01 10:25 | NUR ---
Dr. Villafuerte to see pt Dr. Villafuerte notified that pt refused p.o. meds this am. no new orders.
[2020-12-01 11:00] VITALS: BP 105/63
--- NOTE | 2020-12-01 14:57 | NUR ---
Messages sent to pharamacy potassium IV replacement and thiamine IV meds needed for administration. messages sent to pharmacy for these doses. will administer when available.
[2020-12-01 15:00] VITALS: BP 114/79
--- NOTE | 2020-12-01 15:49 | NUR ---
Paged Dr. Villafuerte: PAGER ID: [phone] MESSAGE: RE: Alexander Kent: RM [id number]: Pt skin tone turning yellow, temp rising (up to 101.1). Pt finally just took lactulose and some cranberry juice PO. no other p.o. intake. last blood sugar 79. pt mentation mildly improved. -Belle #[phone]
[2020-12-01] MEDS: thiamine inj. 100 MG in normal saline 100ml IV soln 100 ML IV SCH (16:27)
[2020-12-01] MEDS: potassium Cl 40MEQ/1/2NS 520ml 520 ML IV PRN (16:30)
[2020-12-01 18:00] VITALS: BP 131/83
--- NOTE | 2020-12-01 18:21 | NUR ---
Patient in room PCU 3012A. I have received report from DG Odonnell and had the opportunity to ask questions and assume patient care.
--- NOTE | 2020-12-01 18:33 | NUR ---
Patient in room PCU 3012. I have received report from Radha CONTE and had the opportunity to ask questions and assume patient care. Pt sitting up, eating.
[2020-12-01 22:00] VITALS: BP 130/76
[2020-12-02 02:00] VITALS: BP 122/84
[2020-12-02] MEDS ORDERED: LORazepam 1 MG tablet PO PRN (03:40)
[2020-12-02] MEDS ORDERED: LORazepam 2 mg/ml vial IV PRN (03:40)
[2020-12-02] MEDS: normal saline 1000ml 1,000 ML IV SCH ×2 (03:59→15:19)
[2020-12-02 06:00] VITALS: BP 155/101
--- NOTE | 2020-12-02 06:12 | NUR ---
Problems reprioritized. Patient report given, questions answered & plan of care reviewed with DG Martines.
--- NOTE | 2020-12-02 06:35 | NUR ---
Patient in room PCU 3012. I have received report from DG SANDERS, and had the opportunity to ask questions and assume patient care.
[2020-12-02 07:09] LABS: BASOPHILS # (AUTO) 0.1 X10'3 (0-0.2); BASOPHILS % (AUTO) 1.2 % (0-1); EOSINOPHILS # (AUTO) 0.2 X10'3 (0-0.9); EOSINOPHILS % (AUTO) 3.6 % (0-6); HEMATOCRIT 35.2 % (42.0-52.0); HEMOGLOBIN 11.9 g/dl (14.0-17.9); LYMPHOCYTES # (AUTO) 0.7 X10'3 (1.1-4.8); LYMPHOCYTES % (AUTO) 13.9 % (21-51); MEAN CORPUSCULAR HEMOGLOBIN 33.7 PG (27.0-31.0); MEAN CORPUSCULAR HGB CONC 33.9 g/dL (33.0-36.5); MEAN CORPUSCULAR VOLUME 99.7 FL (78-98); MEAN PLATELET VOLUME 9.2 FL (7.4-10.4); MONOCYTES # (AUTO) 1.1 X10'3 (0-0.9); MONOCYTES % (AUTO) 19.8 % (2-12); NEUTROPHILS # (AUTO) 3.3 X10'3 (1.8-7.7); NEUTROPHILS % (AUTO) 61.5 % (42-75); PLATELET COUNT 85 X10'3 (140-440); RED BLOOD COUNT 3.53 X10'6 (4.70-6.10); RED CELL DISTRIBUTION WIDTH 17.8 % (11.5-14.5); WHITE BLOOD COUNT 5.4 X10'3 (4.5-11.0)
[2020-12-02 07:31] LABS: ALANINE AMINOTRANSFERASE 32 U/L (12-78); ALBUMIN 2.3 G/DL (3.4-5.0); ALKALINE PHOSPHATASE 160 IU/L (46-116); ANION GAP 11 (8-16); ASPARTATE AMINO TRANSFERASE 124 U/L (10-37); BILIRUBIN,TOTAL 10.5 MG/DL (0.1-1.0); BLOOD UREA NITROGEN 9 MG/DL (7-18); BUN/CREATININE RATIO 14.8 (5.4-32.0); CALCIUM 8.2 MG/DL (8.5-10.1); CHLORIDE 107 MMOL/L (99-107); CREATININE 0.61 MG/DL (0.60-1.10); GLUCOSE 81 MG/DL (70-104); SODIUM 141 MMOL/L (135-145); TOTAL CARBON DIOXIDE 23.2 MMOL/L (24-32); eGFR > 90 ML/MIN
[2020-12-02 07:34] LABS: ALBUMIN/GLOBULIN RATIO 0.5 (1.1-1.5); POTASSIUM 3.5 MMOL/L (3.5-5.1); TOTAL PROTEIN 7.2 G/DL (6.4-8.2)
[2020-12-02] MEDS: nicotine 21mg patch - 24 hr TD SCH ×2 (08:00→11:43)
[2020-12-02] MEDS: K and/or MAG REPLACEMENT MC SCH ×2 (08:00→20:00)
[2020-12-02] MEDS: docusate sod 100mg capsule PO SCH ×2 (08:00→19:11)
[2020-12-02] MEDS: CefTRIAXone/D5W-Rocephin 1gm 50 ML IV SCH (08:04)
[2020-12-02] MEDS: thiamine inj. 100 MG in normal saline 100ml IV soln 100 ML IV SCH (08:08)
[2020-12-02] MEDS: folic acid 1mg/0.2ml inj IV SCH (08:08)
[2020-12-02] MEDS: rifaximin 550mg tablet PO SCH ×2 (08:10→19:27)
[2020-12-02] MEDS: aspirin 81mg tab.chew PO SCH (08:10)
[2020-12-02] MEDS: lactulose 20gm/30ml cup PO SCH ×4 (08:10→22:03)
[2020-12-02] MEDS: multivitamins, therapeutics tablet PO SCH (08:11)
[2020-12-02] MEDS: pantoprazole 40mg Tablet.DR PO SCH (08:11)
[2020-12-02] MEDS: metoprolol succinate 25mg (24-HOUR) SR. Tablet PO SCH (08:12)
[2020-12-02] MEDS: budesonide 0.5mg/2ml UD nebule IH SCH ×2 (09:31→20:00)
[2020-12-02 11:00] VITALS: BP 103/75
[2020-12-02 12:21] LABS: ANISOCYTOSIS 1+; PLATELET ESTIMATE DECREASED
[2020-12-02 12:22] LABS: POIKILOCYTOSIS 1+; TARGET CELLS 1+
[2020-12-02 13:00] VITALS: BP 103/70
--- NOTE | 2020-12-02 14:15 | NUR ---
SPOKE TO DIETARY CONCERNING TF FOR PT. CONTACTING MD CONCERNING MATTER.
--- NOTE | 2020-12-02 14:16 | NUR ---
PAGE SENT PAGER ID: [phone] MESSAGE: [id number], ERROL SPARKS, PT EATING OVER 1/2 OF MEALS. MENTATION IMPROVED. RESTRAINTS OFF TODAY. PT APPROPRIATE. DO YOU STILL WANT TUBE FEED? THANK YOU. RENY Alves [phone]
--- NOTE | 2020-12-02 15:13 | NUR ---
TF consult: Pt admitted w/ EtOH abuse and cirrhosis, experiencing DT's per EMR. Pt has been eating moderately well, noted to have refused meals yesterday but otherwise avg 75% for most meals which meets 100% of est energy needs and 92% of est protein needs. Pt able to feed self. Per RN, pt is more oriented and out of restraints today. Pt noted to be having diarrhea but no nausea or vomiting. Intake adequate, current diet tolerated. TF not recommended at this time as pt able to consume adequate energy and protein w/ meals. Discussed w/ RN and ni KOCH regarding TF consult. [facility] 12/01. Will continue to monitor. Rec: 1. Continue Regular diet as tolerated 2. IF PO intake declines, may recommend ONS 3. Bowel care per rx 4. Weekly wts Addendum: 12/02/20 at [address] Amended: Links added.
[2020-12-02 16:00] VITALS: BP 124/88
--- NOTE | 2020-12-02 16:40 | NUR ---
Problems reprioritized. Patient report given, questions answered & plan of care reviewed with DG RUTHERFORD.
[2020-12-02 19:00] VITALS: BP 151/81
[2020-12-03] VITALS: BP 121/78
[2020-12-03] MEDS: normal saline 1000ml 1,000 ML IV SCH ×3 (01:39→13:42)
--- NOTE | 2020-12-03 01:44 | NUR ---
incontinent of BM x3. restless and tired. Restoril given as sleep aide. patient still requires a sitter can be impulsive.
--- NOTE | 2020-12-03 06:20 | NUR ---
Patient in room ARIES 354. I have received report from DG Herring and had the opportunity to ask questions and assume patient care.
[2020-12-03 06:30] VITALS: BP 102/57
[2020-12-03 06:51] LABS: BASOPHILS % (AUTO) 0.4 % (0-1); EOSINOPHILS # (AUTO) 0.2 X10'3 (0-0.9); EOSINOPHILS % (AUTO) 3.9 % (0-6); HEMATOCRIT 35.3 % (42.0-52.0); LYMPHOCYTES # (AUTO) 0.9 X10'3 (1.1-4.8); LYMPHOCYTES % (AUTO) 15.5 % (21-51); MEAN CORPUSCULAR HEMOGLOBIN 33.8 PG (27.0-31.0); MEAN CORPUSCULAR HGB CONC 33.9 g/dL (33.0-36.5); MEAN CORPUSCULAR VOLUME 99.7 FL (78-98); MEAN PLATELET VOLUME 8.9 FL (7.4-10.4); MONOCYTES % (AUTO) 18.1 % (2-12); NEUTROPHILS # (AUTO) 3.6 X10'3 (1.8-7.7); NEUTROPHILS % (AUTO) 62.1 % (42-75); PLATELET COUNT 93 X10'3 (140-440); RED BLOOD COUNT 3.54 X10'6 (4.70-6.10); RED CELL DISTRIBUTION WIDTH 17.9 % (11.5-14.5); WHITE BLOOD COUNT 5.8 X10'3 (4.5-11.0)
--- NOTE | 2020-12-03 06:53 | NUR ---
Problems reprioritized. Patient report given, questions answered & plan of care reviewed with Ariana RN.
[2020-12-03 07:10] LABS: ALANINE AMINOTRANSFERASE 32 U/L (12-78); ALBUMIN 2.2 G/DL (3.4-5.0); ALKALINE PHOSPHATASE 149 IU/L (46-116); ANION GAP 13 (8-16); ASPARTATE AMINO TRANSFERASE 116 U/L (10-37); BILIRUBIN,TOTAL 11.3 MG/DL (0.1-1.0); BLOOD UREA NITROGEN 9 MG/DL (7-18); BUN/CREATININE RATIO 14.3 (5.4-32.0); CHLORIDE 107 MMOL/L (99-107); CREATININE 0.63 MG/DL (0.60-1.10); GLUCOSE 83 MG/DL (70-104); SODIUM 141 MMOL/L (135-145); TOTAL CARBON DIOXIDE 21.3 MMOL/L (24-32); eGFR > 90 ML/MIN
[2020-12-03 07:21] LABS: ALBUMIN/GLOBULIN RATIO 0.4 (1.1-1.5); POTASSIUM 3.5 MMOL/L (3.5-5.1); TOTAL PROTEIN 7.1 G/DL (6.4-8.2)
[2020-12-03] MEDS: K and/or MAG REPLACEMENT MC SCH ×2 (08:00→20:00)
[2020-12-03] MEDS: ipratropium/albuterol 3ml nebule NEB PRN ×2 (08:42→18:55)
[2020-12-03] MEDS: budesonide 0.5mg/2ml UD nebule IH SCH ×2 (08:43→18:55)
[2020-12-03 08:53] LABS: ANISOCYTOSIS 1+; NUCLEATED RED BLOOD CELLS 1 /100WBC (0-0); PLATELET ESTIMATE DECREASED; POLYCHROMASIA 1+; ROULEAUX 1+; TARGET CELLS 1+; TOTAL CELLS COUNTED 100
[2020-12-03 08:54] LABS: TOXIC VACUOLATION FEW
[2020-12-03] MEDS: metoprolol succinate 25mg (24-HOUR) SR. Tablet PO SCH (09:07)
[2020-12-03] MEDS: docusate sod 100mg capsule PO SCH ×2 (09:08→20:00)
[2020-12-03] MEDS: pantoprazole 40mg Tablet.DR PO SCH (09:15)
[2020-12-03] MEDS: aspirin 81mg tab.chew PO SCH (09:15)
[2020-12-03] MEDS: multivitamins, therapeutics tablet PO SCH (09:15)
[2020-12-03] MEDS: thiamine inj. 100 MG in normal saline 100ml IV soln 100 ML IV SCH (09:16)
[2020-12-03] MEDS: lactulose 20gm/30ml cup PO SCH ×4 (09:16→22:15)
[2020-12-03] MEDS: rifaximin 550mg tablet PO SCH ×2 (09:27→22:14)
[2020-12-03] MEDS: folic acid 1mg/0.2ml inj IV SCH ×2 (09:28→11:23)
[2020-12-03 11:00] VITALS: BP 117/78
--- NOTE | 2020-12-03 14:31 | NUR ---
F/u for TF consult: D/w RN regarding TF consult received 12/02. Informed RN that TF is not indicated given pt overall with good PO intake of meals, however would be beneficial if PO intake declines consistently for 5-7 days. Noted pt refused breakfast this morning. RN states she encouraged PO intake and pt agreed to eat meals. PO intake improved to 100% a lunch today. Noted notes state will hold off on TF at this time. Will continue to follow. Addendum: 12/03/20 at [address] Amended: Links added.
[2020-12-03] MEDS ORDERED: CHOL10006 PO (15:54)
[2020-12-03] MEDS ORDERED: PALI234D IM (15:54)
[2020-12-03] MEDS: HYDROcodone/acetaminophen 10/325mg tab PO PRN (16:37)
[2020-12-03 18:00] VITALS: BP 115/66
--- NOTE | 2020-12-03 18:20 | NUR ---
Problems reprioritized. Patient report given, questions answered & plan of care reviewed with Vesna RN.
[2020-12-04 00:07] VITALS: BP 111/82
[2020-12-04] MEDS: normal saline 1000ml 1,000 ML IV SCH ×2 (02:04→17:57)
--- NOTE | 2020-12-04 06:20 | NUR ---
Patient in room ARIES 354. I have received report from DG Malagon and had the opportunity to ask questions and assume patient care.
[2020-12-04 06:30] VITALS: BP 116/60
[2020-12-04] MEDS: K and/or MAG REPLACEMENT MC SCH ×2 (08:00→20:00)
[2020-12-04] MEDS: budesonide 0.5mg/2ml UD nebule IH SCH ×2 (08:00→19:55)
[2020-12-04] MEDS: folic acid 1mg/0.2ml inj IV SCH (08:24)
[2020-12-04] MEDS: metoprolol succinate 25mg (24-HOUR) SR. Tablet PO SCH (08:24)
[2020-12-04] MEDS: pantoprazole 40mg Tablet.DR PO SCH (08:24)
[2020-12-04] MEDS: thiamine inj. 100 MG in normal saline 100ml IV soln 100 ML IV SCH (08:24)
[2020-12-04] MEDS: rifaximin 550mg tablet PO SCH ×2 (08:24→21:51)
[2020-12-04] MEDS: aspirin 81mg tab.chew PO SCH (08:24)
[2020-12-04] MEDS: multivitamins, therapeutics tablet PO SCH (08:24)
[2020-12-04] MEDS: lactulose 20gm/30ml cup PO SCH ×2 (08:24→21:50)
[2020-12-04 08:25] LABS: BASOPHILS # (AUTO) 0.2 X10'3 (0-0.2); EOSINOPHILS # (AUTO) 0.2 X10'3 (0-0.9); HEMOGLOBIN 11.9 g/dl (14.0-17.9); MONOCYTES # (AUTO) 1.1 X10'3 (0-0.9); NEUTROPHILS # (AUTO) 3.4 X10'3 (1.8-7.7); WHITE BLOOD COUNT 5.9 X10'3 (4.5-11.0)
[2020-12-04] MEDS ORDERED: docusate sod 100mg capsule PO PRN (08:25)
[2020-12-04 08:28] LABS: BASOPHILS % (AUTO) 3.9 % (0-1); EOSINOPHILS % (AUTO) 3.4 % (0-6); HEMATOCRIT 35.4 % (42.0-52.0); LYMPHOCYTES % (AUTO) 16.1 % (21-51); MEAN CORPUSCULAR HEMOGLOBIN 33.2 PG (27.0-31.0); MEAN CORPUSCULAR HGB CONC 33.6 g/dL (33.0-36.5); MEAN CORPUSCULAR VOLUME 98.8 FL (78-98); MEAN PLATELET VOLUME 9.3 FL (7.4-10.4); MONOCYTES % (AUTO) 19.2 % (2-12); NEUTROPHILS % (AUTO) 57.4 % (42-75); PLATELET COUNT 125 X10'3 (140-440); RED BLOOD COUNT 3.59 X10'6 (4.70-6.10); RED CELL DISTRIBUTION WIDTH 17.7 % (11.5-14.5)
[2020-12-04 08:42] LABS: ALANINE AMINOTRANSFERASE 38 U/L (12-78); ALBUMIN 2.3 G/DL (3.4-5.0); ALBUMIN/GLOBULIN RATIO 0.4 (1.1-1.5); ALKALINE PHOSPHATASE 154 IU/L (46-116); ANION GAP 12 (8-16); ASPARTATE AMINO TRANSFERASE 131 U/L (10-37); BILIRUBIN,TOTAL 12.7 MG/DL (0.1-1.0); BLOOD UREA NITROGEN 10 MG/DL (7-18); BUN/CREATININE RATIO 14.9 (5.4-32.0); CALCIUM 7.9 MG/DL (8.5-10.1); CHLORIDE 107 MMOL/L (99-107); CREATININE 0.67 MG/DL (0.60-1.10); GLUCOSE 92 MG/DL (70-104); POTASSIUM 3.7 MMOL/L (3.5-5.1); SODIUM 140 MMOL/L (135-145); TOTAL CARBON DIOXIDE 21.4 MMOL/L (24-32); TOTAL PROTEIN 7.5 G/DL (6.4-8.2); eGFR > 90 ML/MIN
[2020-12-04] MEDS ORDERED: [UNRECOGNIZED DRUG - OTHER] TP SCH (10:45)
[2020-12-04 11:00] VITALS: BP 138/81
--- NOTE | 2020-12-04 18:10 | NUR ---
Problems reprioritized. Patient report given, questions answered & plan of care reviewed with DG Buchanan.
--- NOTE | 2020-12-04 18:47 | NUR ---
Patient in room ARIES 354. I have received report from Maria Del Carmen CONTE and had the opportunity to ask questions and assume patient care. Addendum: 12/04/20 at 1849 by Dewayne Pride RN received report from Ariana CONTE*
[2020-12-04 20:11] VITALS: BP 119/73
[2020-12-04] MEDS: HYDROcodone/acetaminophen 10/325mg tab PO PRN (22:07)
[2020-12-04 23:30] VITALS: BP 115/76
[2020-12-05] MEDS: cloNIDine 0.1 MG/24 HOUR patch (7 day patch) TD SCH (05:28)
[2020-12-05 06:30] VITALS: BP 140/78
--- NOTE | 2020-12-05 06:40 | NUR ---
Patient in room ARIES 354. I have received report from DG Buchanan and had the opportunity to ask questions and assume patient care.
--- NOTE | 2020-12-05 07:01 | NUR ---
Problems reprioritized. Patient report given, questions answered & plan of care reviewed with Ariana RN.
[2020-12-05 07:22] LABS: BASOPHILS # (AUTO) 0.1 X10'3 (0-0.2); EOSINOPHILS # (AUTO) 0.3 X10'3 (0-0.9); EOSINOPHILS % (AUTO) 4.4 % (0-6); HEMATOCRIT 35.4 % (42.0-52.0); HEMOGLOBIN 11.9 g/dl (14.0-17.9); LYMPHOCYTES % (AUTO) 16.4 % (21-51); MEAN CORPUSCULAR HEMOGLOBIN 33.8 PG (27.0-31.0); MEAN CORPUSCULAR HGB CONC 33.7 g/dL (33.0-36.5); MEAN CORPUSCULAR VOLUME 100.3 FL (78-98); MEAN PLATELET VOLUME 9.8 FL (7.4-10.4); MONOCYTES # (AUTO) 1.1 X10'3 (0-0.9); MONOCYTES % (AUTO) 19.3 % (2-12); NEUTROPHILS # (AUTO) 3.5 X10'3 (1.8-7.7); NEUTROPHILS % (AUTO) 58.9 % (42-75); PLATELET COUNT 138 X10'3 (140-440); RED BLOOD COUNT 3.53 X10'6 (4.70-6.10); RED CELL DISTRIBUTION WIDTH 17.7 % (11.5-14.5); WHITE BLOOD COUNT 5.9 X10'3 (4.5-11.0)
[2020-12-05 07:29] LABS: ALANINE AMINOTRANSFERASE 39 U/L (12-78); ALBUMIN 2.2 G/DL (3.4-5.0); ALBUMIN/GLOBULIN RATIO 0.4 (1.1-1.5); ALKALINE PHOSPHATASE 145 IU/L (46-116); ANION GAP 11 (8-16); ASPARTATE AMINO TRANSFERASE 130 U/L (10-37); BILIRUBIN,TOTAL 12.4 MG/DL (0.1-1.0); BLOOD UREA NITROGEN 9 MG/DL (7-18); BUN/CREATININE RATIO 15.5 (5.4-32.0); CHLORIDE 106 MMOL/L (99-107); CREATININE 0.58 MG/DL (0.60-1.10); GLUCOSE 92 MG/DL (70-104); POTASSIUM 3.5 MMOL/L (3.5-5.1); SODIUM 139 MMOL/L (135-145); TOTAL CARBON DIOXIDE 21.9 MMOL/L (24-32); TOTAL PROTEIN 7.1 G/DL (6.4-8.2); eGFR > 90 ML/MIN
[2020-12-05 07:50] LABS: TOTAL CELLS COUNTED 100
[2020-12-05 07:52] LABS: ANISOCYTOSIS 1+; PLATELET ESTIMATE DECREASED; STOMATOCYTES FEW; TARGET CELLS 1+
[2020-12-05] MEDS: K and/or MAG REPLACEMENT MC SCH (08:00)
[2020-12-05] MEDS ORDERED: cholecalciferol (vitamin D3) 1,000 unit (25mcg) tablet PO SCH (08:00)
[2020-12-05] MEDS: budesonide 0.5mg/2ml UD nebule IH SCH (08:30)
[2020-12-05] MEDS: ipratropium/albuterol 3ml nebule NEB PRN (08:30)
[2020-12-05 11:00] VITALS: BP 118/74
[2020-12-05] MEDS: thiamine inj. 100 MG in normal saline 100ml IV soln 100 ML IV SCH (11:12)
[2020-12-05] MEDS: folic acid 1mg/0.2ml inj IV SCH (11:12)
[2020-12-05] MEDS: lactulose 20gm/30ml cup PO SCH (11:13)
[2020-12-05] MEDS: multivitamins, therapeutics tablet PO SCH (11:13)
[2020-12-05] MEDS: rifaximin 550mg tablet PO SCH (11:14)
[2020-12-05] MEDS: pantoprazole 40mg Tablet.DR PO SCH (11:14)
[2020-12-05] MEDS: metoprolol succinate 25mg (24-HOUR) SR. Tablet PO SCH (11:14)
[2020-12-05] MEDS: aspirin 81mg tab.chew PO SCH (11:14)
[2020-12-05] MEDS ORDERED: proCHLORperazine 10 MG/2 ml inj IV PRN (11:40)
[2020-12-05] MEDS ORDERED: FURO40TA4 PO (12:47)
[2020-12-05] MEDS ORDERED: LACT10SO3 PO (12:47)
[2020-12-05] MEDS ORDERED: LORA-269 PO (12:47)
[2020-12-05] MEDS ORDERED: SPIR25TA PO (12:47)
[2020-12-05] MEDS ORDERED: ONDA4TAB6 PO (12:47)
--- NOTE | 2020-12-05 15:00 | NUR ---
DC inst provided to pt. IV DC'd, tip intact. All belongings sent w/pt. WC to front entrance. Pt to wait @ front entrance bench for cab.
[2020-12-05] MEDS ORDERED: thiamine 100mg tablet PO SCH (20:00)
[2020-12-06] MEDS ORDERED: folic acid 1mg tablet PO SCH (08:00)
[2020-12-06] MEDS ORDERED: [UNRECOGNIZED DRUG - OTHER] TP SCH (10:00)
[2020-12-13] MEDS ORDERED: paliperidone palmitate inj 234 MG/1.5 ML SYRINGE IM SCH (08:00)
== END 2020-12-05 15:07 | disposition home or self-care (01) | DRG 133 ==
LOC: ER 21:47 → ED HOLD 11-28 03:38 → PCU 3S 11-29 08:01 → SUR 3N 12-02 16:32
PROVIDERS: ADMIT Family Medicine; ATTEND Family Medicine
PROC: 5A09357 Assistance with Respiratory Ventilation, Less than 24 Consecutive Hours, Continuous Positive Airway Pressure (ICD-10-PCS; principal; 2020-11-28)
DX: J96.01 Acute respiratory failure with hypoxia (principal); G93.41 Metabolic encephalopathy; D69.59 Other secondary thrombocytopenia; E87.8 Other disorders of electrolyte and fluid balance, not elsewhere classified; E66.2 Morbid (severe) obesity with alveolar hypoventilation; E87.1 Hypo-osmolality and hyponatremia; K72.90 Hepatic failure, unspecified without coma; E88.09 Other disorders of plasma-protein metabolism, not elsewhere classified; F20.9 Schizophrenia, unspecified; J44.1 Chronic obstructive pulmonary disease with (acute) exacerbation; B19.20 Unspecified viral hepatitis C without hepatic coma; I11.9 Hypertensive heart disease without heart failure; D64.9 Anemia, unspecified; F10.229 Alcohol dependence with intoxication, unspecified; F10.230 Alcohol dependence with withdrawal, uncomplicated; F12.90 Cannabis use, unspecified, uncomplicated; F15.129 Other stimulant abuse with intoxication, unspecified; Z60.2 Problems related to living alone; F32.9 Major depressive disorder, single episode, unspecified; F41.9 Anxiety disorder, unspecified; L21.9 Seborrheic dermatitis, unspecified; L40.9 Psoriasis, unspecified; K70.31 Alcoholic cirrhosis of liver with ascites; K82.8 Other specified diseases of gallbladder; Z59.0 Homelessness; Z72.0 Tobacco use; Z79.899 Other long term (current) drug therapy; Z80.42 Family history of malignant neoplasm of prostate; Z68.41 Body mass index [BMI] 40.0-44.9, adult; Z81.0 Family history of intellectual disabilities; Z81.1 Family history of alcohol abuse and dependence; Z56.0 Unemployment, unspecified; Z71.6 Tobacco abuse counseling; Z78.1 Physical restraint status
CPT/HCPCS: 36415; 70450; 71045; 76700; 80053; 80061; 80305; 80320; 81003; 82140; 82550; 82948; 83690; 83735; 83880; 84100; 84484; 85007; 85008; 85025; 85610; 85730; 87081; 93005; 94640; 94660; 94760; 97161; 97530; 99285; G0378; J0696; J0780; J1200; J1630; J1644; J2060; J2270; J2405; J2560; J3411; J3480; J3490; J7030; J7626

== ENCOUNTER 2021-01-27 22:17 | Inpatient (IN) | payer MEDICAID ==
[~2021-01-27] VITALS: Ht 165.1 cm; Wt 98.3 kg
[~2021-01-27 22:17] MED LIST changes: +CHOL10006 PO; -GABA300C PO; +LACT10SO3 PO; +LORA-269 PO; +PALI234D IM; +SPIR25TA PO; -TRAZ-251 PO
[2021-01-27] MEDS ORDERED: ondansetron/PF 4mg/2ml inj IV ONE (23:25)
[2021-01-27] MEDS ORDERED: LORazepam 2 mg/ml vial IV ONE (23:25)
[2021-01-27 23:31] LABS: BASOPHILS # (AUTO) 0.1 X10'3 (0-0.2); BASOPHILS % (AUTO) 0.9 % (0-1); EOSINOPHILS % (AUTO) 0.3 % (0-6); HEMATOCRIT 39.2 % (42.0-52.0); HEMOGLOBIN 13.1 g/dl (14.0-17.9); LYMPHOCYTES # (AUTO) 0.4 X10'3 (1.1-4.8); LYMPHOCYTES % (AUTO) 3.6 % (21-51); MEAN CORPUSCULAR HEMOGLOBIN 32.8 PG (27.0-31.0); MEAN CORPUSCULAR HGB CONC 33.3 g/dL (33.0-36.5); MEAN CORPUSCULAR VOLUME 98.6 FL (78-98); MEAN PLATELET VOLUME 8.4 FL (7.4-10.4); MONOCYTES # (AUTO) 0.5 X10'3 (0-0.9); MONOCYTES % (AUTO) 5.1 % (2-12); NEUTROPHILS # (AUTO) 8.9 X10'3 (1.8-7.7); NEUTROPHILS % (AUTO) 90.1 % (42-75); RED BLOOD COUNT 3.98 X10'6 (4.70-6.10); RED CELL DISTRIBUTION WIDTH 15.8 % (11.5-14.5); WHITE BLOOD COUNT 9.9 X10'3 (4.5-11.0)
[2021-01-27 23:45] LABS: ALANINE AMINOTRANSFERASE 59 U/L (12-78); ALBUMIN 2.8 G/DL (3.4-5.0); ALKALINE PHOSPHATASE 80 IU/L (46-116); ANION GAP 18 (8-16); ASPARTATE AMINO TRANSFERASE 149 U/L (10-37); BLOOD UREA NITROGEN 25 MG/DL (7-18); BUN/CREATININE RATIO 16.7 (5.4-32.0); CALCIUM 9.1 MG/DL (8.5-10.1); CHLORIDE 96 MMOL/L (99-107); GLUCOSE 115 MG/DL (70-104); POTASSIUM 3.8 MMOL/L (3.5-5.1); SODIUM 133 MMOL/L (135-145); TOTAL CARBON DIOXIDE 18.6 MMOL/L (24-32); eGFR 54 ML/MIN
[2021-01-27 23:47] LABS: ALBUMIN/GLOBULIN RATIO 0.5 (1.1-1.5); TOTAL PROTEIN 8.7 G/DL (6.4-8.2)
[2021-01-27 23:48] LABS: D-DIMER 6.88 MG/L FEU (0-0.50)
[2021-01-27] MEDS ORDERED: iohexol 350MG/ML 100ml bottle IV ONE (23:54)
[2021-01-27 23:55] LABS: MAGNESIUM 0.7 MG/DL (1.5-2.4); PLATELET COUNT 38 X10'3 (140-440)
[2021-01-27] MEDS ORDERED: ringers solution, lactated 1000ml IV soln IV ONE (23:55)
--- NOTE | 2021-01-27 23:55 | NUR ---
LAB CALLED CRITICAL VALUE MG .7/PLT 38; NOTIFIED
[2021-01-28] MEDS ORDERED: magnesium 4gm in 100ml NS 100 ML IV ONE
[2021-01-28 00:01] LABS: ANISOCYTOSIS 1+; NUCLEATED RED BLOOD CELLS 1 /100WBC (0-0); PLATELET ESTIMATE DECREASED; TOTAL CELLS COUNTED 100
[2021-01-28 00:02] LABS: POLYCHROMASIA FEW; TOXIC GRANULATION 1+
[2021-01-28] MEDS ORDERED: piperacillin/tazo 3.375gm/50ml 50 ML IV ONE (00:05)
[2021-01-28] MEDS ORDERED: vancomycin/NS 1 GM ADD-VANTAGE 250 ML IV ONE (00:05)
[2021-01-28 00:11] LABS: SMUDGE CELLS FEW
[2021-01-28 00:25] LABS: ETHANOL < 0.010 GM/DL (0.0-0.010)
[2021-01-28 00:32] LABS: PARTIAL THROMBOPLASTIN TIME 41 SECONDS (22-32)
[2021-01-28] MEDS ORDERED: morphine 4 MG/ML inj SYRINge IV ONE (00:50)
[2021-01-28] MEDS ORDERED: ondansetron/PF 4mg/2ml inj IV ONE (00:50)
[2021-01-28] MEDS ORDERED: LACT10SO67 PO (01:22)
[2021-01-28] MEDS ORDERED: SPIR25TA5 PO (01:22)
[2021-01-28] MEDS ORDERED: NALT50TA PO (01:22)
[2021-01-28] MEDS ORDERED: FURO40TA4 PO (01:22)
[2021-01-28] MEDS ORDERED: LORazepam 2 mg/ml vial IV ONE ×3 (01:40→03:10)
--- NOTE | 2021-01-28 03:09 | NUR ---
LAB GAVE LACTIC 5.9 CRITICAL VALUE; RN NOTIFIED
[2021-01-28] MEDS ORDERED: ringers solution, lactated 1000ml IV soln IV ONE (03:25)
--- NOTE | 2021-01-28 03:46 | NUR ---
PULLED 2MG ATIVAN FOR RN; STATES HIS ORDER IS FOR 4MG; PULLED 4MG OF ATIVAN UNDER THAT ORDER AND RETURNED THE FIRST 2MG WITH REFERRAL AGENT.
--- NOTE | 2021-01-28 04:18 | NUR ---
HELPED PRIMARY RN MOVE PT TO INPATIENT BED; PT IS DISORIENTED AND RAMBUNCTIOUS IN THE BED NOT FOLLOWING MANY COMMANDS; PT IS JAUNDICED AND SCLERAS ARE YELLOW; DETOXING 3D OUT SINCE LAST DRINK WITH NEG ETOH ON BOARD; TELE VIEW WITH NEURO WHICH GAVE ORDERS FOR PRECEDEX; WAITING FOR MED FROM PHARM AFTER MD PLACES ORDER. VSS AT THIS TIME, PT REMAINS ON CARDIAC MONITORING AND BIPAP MACHINE.
[2021-01-28] MEDS: K, MAG and/or Phos replacement - Verify level? MC SCH ×2 (04:25→08:00)
[2021-01-28] MEDS ORDERED: potassium Cl 20 mEq SR tablet PO PRN ×2 (04:25)
[2021-01-28] MEDS ORDERED: magnesium hydroxide 30ml (MOM) UD suspension PO PRN (04:25)
[2021-01-28] MEDS ORDERED: acetaminophen 325mg tablet PO PRN (04:25)
[2021-01-28] MEDS ORDERED: levoFLOXACIN-Levaquin 750MG/D5 150 ML IV STA (04:27)
[2021-01-28] MEDS ORDERED: ringers solution, lacted 1,000 ML IV ONE (04:35)
--- NOTE | 2021-01-28 06:25 | NUR ---
PATIENT SEEN ON BED ASLEEP ON BIPAP 50% FIO2, SATING 94%. rr 31.
[2021-01-28] MEDS: piperacillin/tazo 4.5gm/100ml 100 ML IV SCH ×2 (07:57→16:39)
[2021-01-28] MEDS: enoxaparin 40mg/0.4ml syringe SUBCUT SCH (07:58)
--- NOTE | 2021-01-28 08:10 | NUR ---
PATIEN PLACED IN A GOWN.REFUSED TO TURN AT THIS TIME.CLOTHING CUT OFF.
--- NOTE | 2021-01-28 08:23 | NUR ---
Pt O2 Sat 88% called RT Signed: 01/28/21 at 0824 by Nika ROLDAN
--- NOTE | 2021-01-28 08:51 | NUR ---
Dr Gauthier at bedside, keep NPO at this time,received a verbal order for duoneb Q4 hours scheduled and Q2 hours as needed, patient does not need lasix at this time per MD. Start rodriguez cath.
[2021-01-28] MEDS ORDERED: ipratropium/albuterol 3ml nebule NEB PRN (08:55)
[2021-01-28] MEDS ORDERED: LIDOcaine 2% 10ml TOPICAL JELLY (Urojet) TP ONE (09:00)
[2021-01-28 09:47] LABS: ABG BASE EXCESS -0.1 mmol/L (-2.0-2.0); ABG HCO3 22.2 mmol/L (22.0-26.0); ABG OXYGEN SATURATION 93.4 % (94-97); ABG PO2 (T) 70.5 mmHg (75.0-100.0); ALLEN'S TEST POSITIVE; FCOHb 0.4 % (0.0-3.9); PATIENT TEMPERATURE 37.6; RESPIRATORY RATE 16 b/min; TOTAL HEMOGLOBIN 12.1 G/dl (14.0-18.0)
--- NOTE | 2021-01-28 10:10 | NUR ---
GUAJARDO CATH INSERTED, PT TOLERATED WELL.
--- NOTE | 2021-01-28 10:22 | NUR ---
700 ml urine out from rodriguez.
--- NOTE | 2021-01-28 10:36 | NUR ---
paged RT to request for breathing tx.
--- NOTE | 2021-01-28 10:48 | NUR ---
Dr. Gauthier called and made aware that med rec needs to be addressed.
[2021-01-28] MEDS: ipratropium/albuterol 3ml nebule NEB SCH ×4 (11:03→22:45)
[2021-01-28 11:10] LABS: URINE AMPHETAMINE SCREEN POSITIVE (Neg); URINE BARBITUATE SCREEN NEGATIVE (Neg); URINE BENZODIAZEPINES SCREEN NEGATIVE (Neg); URINE CANNABINOID SCREEN NEGATIVE (Neg); URINE COCAINE SCREEN NEGATIVE (Neg); URINE METHADONE SCREEN NEGATIVE (Neg); URINE OPIATE SCREEN POSITIVE (Neg); URINE PHENCYCLIDINE SCREEN NEGATIVE (Neg)
--- NOTE | 2021-01-28 12:22 | NUR ---
PT RESTING QUIETLY TOLERATING BPAP WELL, WAITING FOR ICU BED, PT ON A HOSPITAL BED
--- NOTE | 2021-01-28 12:50 | NUR ---
PTS SHIRT AND SHORTS WERE CUT OFF AND REMOVED, THERE WERE NO BELONGINGS WITH THEM, NO WALLET, NO PHONE, NO KEYS, NO DENTURES. WE PUT A FRESH SET OF LINENS AND ROLLED PT, CHANGED PTS POSITION, PT IS NOW LYING ON LEFT SIDE WITH PILLOWS UNDER RIGHT. NOTED THAT GUAJARDO IS PATENT AND DRAINING. PT TOLERATED MOVEMENT AND IS RESTING COMFORTABLY NOW.
--- NOTE | 2021-01-28 12:58 | NUR ---
SKIN CHECK WITH TWO NURSES DONE, NO SKIN BREAKDOWN TO BACK/COCCYX, HEELS ARE DRY, APPLIED LOTION,
[2021-01-28] MEDS: ondansetron/PF 4mg/2ml inj IV PRN ×2 (14:41→20:14)
--- NOTE | 2021-01-28 14:44 | NUR ---
PT C/O FEELING NAUSEA, BIPAP REMOVED, MEDICATED WITH ZOFRAN PER ORDER, BIPAP REPLACED, PT WAS ROLLED TO RT SIDE, SAID HE FELT COMFORTABLE
--- NOTE | 2021-01-28 16:43 | NUR ---
PT CONTINUES TO REST QUIETLY ON GURNEY, BIPAP ON, PT IS TOLERATING WELL, PT IS NOW LYING FLAT, HOB UP, EASILY AROUSEABLE TO LIGHT TOUCH BUT SLEEPY
--- NOTE | 2021-01-28 17:46 | NUR ---
pt rolled to left side, continues to rest quietly on hospital bed
--- NOTE | 2021-01-28 18:07 | NUR ---
PT SLEEPING, EASILY AROUSEABLE, CALM AND COOPERATIVE, "I HAVE BEEN A HALLUCINATING ALOT ABOUT PEOPLE'S FACES", PT THEN FELL BACK ASLEEP, RESP EVEN AND UNLABORED,
[2021-01-28] MEDS: lactobacillus rhamnosus 10,000 MMU CELLS/CAPSULE PO SCH (20:00)
--- NOTE | 2021-01-28 20:17 | NUR ---
PT C/O FEELING NAUSEA, MEDICATED PER ORDER
[2021-01-28] MEDS: VANCOmycin 1250MG/NS 250ml Bag 250 ML IV SCH (21:53)
--- NOTE | 2021-01-28 21:57 | NUR ---
PT IS RESTING QUIETLY ON BED, RESP EVEN AND UNLABORED
[2021-01-29] MEDS: ipratropium/albuterol 3ml nebule NEB SCH ×6 (03:44→23:24)
[2021-01-29] MEDS: ondansetron/PF 4mg/2ml inj IV PRN (05:11)
[2021-01-29] MEDS: K, MAG and/or Phos replacement - Verify level? MC SCH (08:00)
[2021-01-29] MEDS: enoxaparin 40mg/0.4ml syringe SUBCUT SCH (08:00)
[2021-01-29] MEDS ORDERED: levoFLOXACIN-Levaquin 750MG/D5 150 ML IV SCH (08:00)
[2021-01-29] MEDS: lactobacillus rhamnosus 10,000 MMU CELLS/CAPSULE PO SCH ×2 (08:00→20:35)
[2021-01-29] MEDS: VANCOmycin 1250MG/NS 250ml Bag 250 ML IV SCH ×4 (08:00→19:21)
--- NOTE | 2021-01-29 08:38 | NUR ---
PT HAD LARGE BLACK TARRY STOOL. LINENS CHANGED AND PT ROLLED TO RIGHT SIDE. PT STABLE AND IN NAD.
[2021-01-29 09:04] LABS: BASOPHILS % (AUTO) 0.5 % (0-1); EOSINOPHILS % (AUTO) 0.4 % (0-6); HEMATOCRIT 35.8 % (42.0-52.0); HEMOGLOBIN 11.9 g/dl (14.0-17.9); LYMPHOCYTES # (AUTO) 0.5 X10'3 (1.1-4.8); LYMPHOCYTES % (AUTO) 7.7 % (21-51); MEAN CORPUSCULAR HEMOGLOBIN 33.1 PG (27.0-31.0); MEAN CORPUSCULAR HGB CONC 33.3 g/dL (33.0-36.5); MEAN CORPUSCULAR VOLUME 99.5 FL (78-98); MEAN PLATELET VOLUME 8.6 FL (7.4-10.4); MONOCYTES # (AUTO) 0.5 X10'3 (0-0.9); MONOCYTES % (AUTO) 7.3 % (2-12); NEUTROPHILS # (AUTO) 5.5 X10'3 (1.8-7.7); NEUTROPHILS % (AUTO) 84.1 % (42-75); RED CELL DISTRIBUTION WIDTH 16.2 % (11.5-14.5); WHITE BLOOD COUNT 6.5 X10'3 (4.5-11.0)
[2021-01-29 09:08] LABS: PLATELET COUNT 39 X10'3 (140-440)
[2021-01-29 09:26] LABS: ALBUMIN 2.1 G/DL (3.4-5.0); ANION GAP 8 (8-16); BLOOD UREA NITROGEN 26 MG/DL (7-18); BUN/CREATININE RATIO 28.9 (5.4-32.0); CALCIUM 8.8 MG/DL (8.5-10.1); CHLORIDE 104 MMOL/L (99-107); GLUCOSE 119 MG/DL (70-104); MAGNESIUM 2.2 MG/DL (1.5-2.4); POTASSIUM 3.6 MMOL/L (3.5-5.1); SODIUM 138 MMOL/L (135-145); TOTAL CARBON DIOXIDE 25.8 MMOL/L (24-32); eGFR > 90 ML/MIN
[2021-01-29 09:28] LABS: PHOSPHORUS 2.1 MG/DL (2.3-4.5)
--- NOTE | 2021-01-29 10:30 | NUR ---
IV ON LEFT FOREARM DC'S BY PT ACCIDENTALLY. LEFT IV OCCLUDED. NEW IV INITIATED. AWAITING ABX FROM PHARMACY
[2021-01-29] MEDS: piperacillin/tazo 4.5gm/100ml 100 ML IV SCH ×3 (11:18→16:13)
--- NOTE | 2021-01-29 20:35 | NUR ---
1 L [place] urine emptied from rodriguez, and patient had loose black stool this morning. Pt has critically low plt count and decreasing h/h. Will continue to monitor.
--- NOTE | 2021-01-29 20:40 | NUR ---
PT might benefit from PT eval and treat order for weakness.
[2021-01-30] MEDS: piperacillin/tazo 4.5gm/100ml 100 ML IV SCH ×2 (00:43→08:37)
--- NOTE | 2021-01-30 00:46 | NUR ---
Patient had another episode of very dark, loose stool.
[2021-01-30] MEDS: VANCOmycin 1250MG/NS 250ml Bag 250 ML IV SCH (03:05)
[2021-01-30] MEDS: ipratropium/albuterol 3ml nebule NEB SCH ×6 (03:41→23:22)
[2021-01-30 05:51] LABS: OCCULT BLOOD STOOL POSITIVE (Neg)
[2021-01-30] MEDS: K, MAG and/or Phos replacement - Verify level? MC SCH (08:00)
[2021-01-30] MEDS: enoxaparin 40mg/0.4ml syringe SUBCUT SCH (08:00)
[2021-01-30] MEDS: lactobacillus rhamnosus 10,000 MMU CELLS/CAPSULE PO SCH ×2 (08:39→20:00)
--- NOTE | 2021-01-30 09:28 | NUR ---
dr castro at bedside ,notified dr castro that pt has dark loose stool .if he consider protonix drip and bolus dose verbal order for 40 mg iv pantaprazole iv onces and the 40 mg iv infusion 8 ml/hr .
[2021-01-30 09:30] LABS: BASOPHILS % (AUTO) 0.3 % (0-1); EOSINOPHILS # (AUTO) 0.2 X10'3 (0-0.9); EOSINOPHILS % (AUTO) 3.4 % (0-6); HEMATOCRIT 35.1 % (42.0-52.0); HEMOGLOBIN 11.7 g/dl (14.0-17.9); LYMPHOCYTES # (AUTO) 0.7 X10'3 (1.1-4.8); MEAN CORPUSCULAR HEMOGLOBIN 33.4 PG (27.0-31.0); MEAN CORPUSCULAR HGB CONC 33.3 g/dL (33.0-36.5); MEAN CORPUSCULAR VOLUME 100.1 FL (78-98); MONOCYTES # (AUTO) 0.9 X10'3 (0-0.9); MONOCYTES % (AUTO) 17.9 % (2-12); NEUTROPHILS # (AUTO) 3.4 X10'3 (1.8-7.7); NEUTROPHILS % (AUTO) 64.4 % (42-75); RED CELL DISTRIBUTION WIDTH 15.9 % (11.5-14.5); WHITE BLOOD COUNT 5.3 X10'3 (4.5-11.0)
[2021-01-30] MEDS ORDERED: pantoprazole 40 MG vial IV ONE (09:30)
[2021-01-30 09:38] LABS: ANION GAP 10 (8-16); BLOOD UREA NITROGEN 14 MG/DL (7-18); BUN/CREATININE RATIO 17.5 (5.4-32.0); CALCIUM 8.5 MG/DL (8.5-10.1); CHLORIDE 104 MMOL/L (99-107); GLUCOSE 88 MG/DL (70-104); MAGNESIUM 2.1 MG/DL (1.5-2.4); POTASSIUM 3.4 MMOL/L (3.5-5.1); SODIUM 139 MMOL/L (135-145); TOTAL CARBON DIOXIDE 24.7 MMOL/L (24-32); eGFR > 90 ML/MIN
[2021-01-30 09:41] LABS: PHOSPHORUS 3.3 MG/DL (2.3-4.5)
[2021-01-30 09:42] LABS: PLATELET COUNT 48 X10'3 (140-440)
[2021-01-30] MEDS: pantoprazole 40MG/NS 100ML BAG 100 ML IV SCH ×3 (09:47→22:13)
[2021-01-30] MEDS ORDERED: thiamine inj. 100 MG in normal saline 100ml IV soln 100 ML IV ONE (09:55)
[2021-01-30] MEDS ORDERED: haloperidol 5mg tablet PO PRN (09:55)
[2021-01-30] MEDS ORDERED: haloperidol lactate 5mg/ml inj IM PRN (09:55)
[2021-01-30] MEDS ORDERED: folic acid inj. 2 MG, thiamine inj. 100 MG, MVI, adult No.4 with vit. K 10 ML in dextro... IV SCH ×4 (09:55)
[2021-01-30] MEDS ORDERED: LORazepam 2 mg/ml vial IV PRN (09:55)
--- NOTE | 2021-01-30 10:07 | NUR ---
called pharmacy for med verification.
--- NOTE | 2021-01-30 10:28 | NUR ---
pt is down graded to pcu .pt is sleeping at this time ,will give meds when pt wake up .
[2021-01-30] MEDS ORDERED: VANCOMYCIN LEVEL IV ONE (10:30)
[2021-01-30 10:43] LABS: ANISOCYTOSIS 1+; NUCLEATED RED BLOOD CELLS 1 /100WBC (0-0); PLATELET ESTIMATE DECREASED; POLYCHROMASIA 1+; TOTAL CELLS COUNTED 100
[2021-01-30 10:44] LABS: ROULEAUX 1+; TARGET CELLS FEW
[2021-01-30] MEDS ORDERED: magnesium 4gm in 100ml NS 100 ML IV STA (10:54)
--- NOTE | 2021-01-30 10:55 | NUR ---
pt resting comfortably in bed .will delay on meds at this time.
[2021-01-30] MEDS: LORazepam 2 mg/ml vial IV PRN ×10 (11:01→23:57)
[2021-01-30] MEDS: folic acid 1mg tablet PO SCH (11:03)
[2021-01-30] MEDS: multivitamins, therapeutics tablet PO SCH (11:03)
[2021-01-30 11:47] LABS: TROPONIN I < 0.04 NG/ML (0.0-0.05); VANCOMYCIN,TROUGH 9.3 UG/ML (6.0-14.0)
[2021-01-30] MEDS: CefTRIAXone 2gm/D5W 50ml BAG 50 ML IV SCH (12:21)
[2021-01-30] MEDS: metoprolol succinate 25mg (24-HOUR) SR. Tablet PO SCH (12:24)
--- NOTE | 2021-01-30 12:30 | NUR ---
assumed care of pt from Husam CONTE
--- NOTE | 2021-01-30 13:15 | NUR ---
first contact with pt, pt is sleeping, easily arouseable, GCS 14 oriented to person, place, event, not oriented to time, he does not know the year or month, resp even and unlabored, no resp distress, on high flow 02 with humidifer at 8liters, skin is pink, warm and dry, radial pulses are strong and regular, IV to bilateral hands are patent and clear, no swelling to extremities, in hospital bed, has been downgraded from ICU to PCU, waiting for bed assignment
--- NOTE | 2021-01-30 14:15 | NUR ---
RT at bedside, pt is trying to get out bed and leave, "I need to go home", I explained he was in hospital, pulse ox 83 on room air, pt had removed his 02, pt was able to get back into bed with min assist, medicated with ativan per order, replaced 02 and pulse ox increased to 97%
[2021-01-30] MEDS: haloperidol lactate 5mg/ml inj IM PRN ×3 (15:14→23:57)
--- NOTE | 2021-01-30 15:35 | NUR ---
found pt completely naked, sitting on edge of bed, he had pulled both IVs out of his hands, cannulas still intact, pt stated he wanted to leave, pt is not following simple commands, trying to hit staff,
--- NOTE | 2021-01-30 15:45 | NUR ---
another RN started 20 guage to left ac on first attempt, 20 to rt upper shoulder, pt is becoming more combative and attempted to kick staff, pt placed in 4pt soft restraints and medicated per order for agitation
--- NOTE | 2021-01-30 16:00 | NUR ---
Dr Zamora aware pt was combative, trying to leave, pulled both IVs out, pt is in 4pt soft restraints, on high flow 02 15 liters, pulse ox 88%, he gave verbal order to change pt back to ICU
--- NOTE | 2021-01-30 16:29 | NUR ---
RT paged, placed pt on NRB mask pulse ox increased to 97%
--- NOTE | 2021-01-30 17:15 | NUR ---
pt still agitated, pulling at restraints, talking to himself
--- NOTE | 2021-01-30 19:00 | NUR ---
800 CC URINE REMOVED FROM GUAJARDO
--- NOTE | 2021-01-30 19:03 | NUR ---
Respiratory at bedside. states last nebulizer treatment was exactly 4 hrs ago.
[2021-01-30] MEDS: lactulose 20gm/30ml cup PO SCH (20:00)
[2021-01-31] VITALS (18 sets, daily range): BP systolic 96–143; BP diastolic 52–90
--- NOTE | 2021-01-31 00:08 | NUR ---
PT OFF AND ON RESTING THEN WAKING WITH CONFUSED SPEECH TALKING TO HIMSELF.
--- NOTE | 2021-01-31 01:09 | NUR ---
pt having periods of confused speak that he relates to as a bad dream. pt still in 4-point soft restraints with good csm intact distally to all restraints. pt slightly agitated at times, given atival or haldol during these times. pt maintaining spo2 of around 96% after breathing treatments and for several hours after.
--- NOTE | 2021-01-31 02:00 | NUR ---
RT AT BEDSIDE, PT MAINTAINING WELL ON 8 L NC
[2021-01-31] MEDS: LORazepam 2 mg/ml vial IV PRN ×3 (02:15→21:04)
[2021-01-31] MEDS: haloperidol lactate 5mg/ml inj IM PRN (02:15)
[2021-01-31] MEDS: ipratropium/albuterol 3ml nebule NEB SCH ×6 (04:09→23:04)
[2021-01-31] MEDS: dexmedetomidine/D5W 100mL 100 ML IV SCH ×3 (05:02→23:52)
[2021-01-31 06:01] LABS: BASOPHILS % (AUTO) 0.8 % (0-1); EOSINOPHILS # (AUTO) 0.3 X10'3 (0-0.9); EOSINOPHILS % (AUTO) 5.7 % (0-6); HEMATOCRIT 34.5 % (42.0-52.0); HEMOGLOBIN 11.6 g/dl (14.0-17.9); LYMPHOCYTES # (AUTO) 0.8 X10'3 (1.1-4.8); LYMPHOCYTES % (AUTO) 15.4 % (21-51); MEAN CORPUSCULAR HEMOGLOBIN 33.2 PG (27.0-31.0); MEAN CORPUSCULAR HGB CONC 33.6 g/dL (33.0-36.5); MEAN CORPUSCULAR VOLUME 98.9 FL (78-98); MEAN PLATELET VOLUME 8.9 FL (7.4-10.4); MONOCYTES # (AUTO) 1.3 X10'3 (0-0.9); MONOCYTES % (AUTO) 23.1 % (2-12); PLATELET COUNT 53 X10'3 (140-440); RED BLOOD COUNT 3.49 X10'6 (4.70-6.10); WHITE BLOOD COUNT 5.5 X10'3 (4.5-11.0)
--- NOTE | 2021-01-31 06:15 | NUR ---
Problems reprioritized. Patient report given, questions answered & plan of care reviewed with Barbara-DG.
[2021-01-31 06:36] LABS: ALANINE AMINOTRANSFERASE 36 U/L (12-78); ALBUMIN 2.1 G/DL (3.4-5.0); ALBUMIN/GLOBULIN RATIO 0.4 (1.1-1.5); ALKALINE PHOSPHATASE 105 IU/L (46-116); AMYLASE 118 U/L (25-115); ANION GAP 11 (8-16); ASPARTATE AMINO TRANSFERASE 83 U/L (10-37); BILIRUBIN,TOTAL 3.9 MG/DL (0.1-1.0); BLOOD UREA NITROGEN 12 MG/DL (7-18); BUN/CREATININE RATIO 15.4 (5.4-32.0); CALCIUM 8.6 MG/DL (8.5-10.1); CHLORIDE 109 MMOL/L (99-107); CREATININE 0.78 MG/DL (0.60-1.10); GLUCOSE 85 MG/DL (70-104); LIPASE 1402 U/L (73-393); MAGNESIUM 2.2 MG/DL (1.5-2.4); PHOSPHORUS 4.3 MG/DL (2.3-4.5); POTASSIUM 3.4 MMOL/L (3.5-5.1); SODIUM 144 MMOL/L (135-145); TOTAL CARBON DIOXIDE 24.1 MMOL/L (24-32); TOTAL PROTEIN 7.1 G/DL (6.4-8.2); eGFR > 90 ML/MIN
[2021-01-31] MEDS: pantoprazole 40MG/NS 100ML BAG 100 ML IV SCH ×5 (07:45→21:11)
[2021-01-31] MEDS: K, MAG and/or Phos replacement - Verify level? MC SCH (08:00)
[2021-01-31] MEDS: metoprolol succinate 25mg (24-HOUR) SR. Tablet PO SCH (08:47)
[2021-01-31] MEDS: lactulose 20gm/30ml cup PO SCH ×2 (08:47→19:37)
[2021-01-31] MEDS: thiamine 100mg tablet PO SCH (08:48)
[2021-01-31] MEDS: folic acid 1mg tablet PO SCH (08:48)
[2021-01-31] MEDS: lactobacillus rhamnosus 10,000 MMU CELLS/CAPSULE PO SCH ×2 (08:48→19:37)
[2021-01-31] MEDS: multivitamins, therapeutics tablet PO SCH (08:48)
[2021-01-31] MEDS: spironolactone 25 MG tablet PO SCH (08:49)
[2021-01-31] MEDS: CefTRIAXone 2gm/D5W 50ml BAG 50 ML IV SCH (08:50)
[2021-01-31] MEDS ORDERED: furosemide 40mg/4ml inj IV ONE (10:50)
[2021-01-31] MEDS: propranolol 10mg tablet PO SCH ×2 (11:12→22:58)
[2021-01-31 12:09] LABS: ANISOCYTOSIS 1+; PLATELET ESTIMATE DECREASED; TOTAL CELLS COUNTED 100
[2021-01-31 12:10] LABS: POLYCHROMASIA FEW
--- NOTE | 2021-01-31 12:10 | NUR ---
TF Consult: Pt admitted w/ chest pain and nausea, going through EtOH and meth withdrawals per EMR. Pt also noted w/ sepsis. Pt noted to be agitated and confused, currently sedated and in restraints. NGT inserted today and okay to start TF per Pouncing Lathe Operator, see recs below. LBM 01/30. Will continue to monitor for TF tolerance and adjust needs as medically indicated. Recs: 1) Continuous TF using Vital AF at 80ml/hr goal to provide 1920ml volume, 2304kcals, 144g protein, 1555ml H2O. 2) Additional water flush 150ml Q4H 3) PALB Q /; daily wts 4) Routine bowel care 5) Monitor TF tolerance Addendum: 01/31/21 at [address] Amended: Links added.
[2021-01-31 13:59] LABS: ABG BASE EXCESS -0.7 mmol/L (-2.0-2.0); ABG HCO3 24.5 mmol/L (22.0-26.0); ABG OXYGEN SATURATION 95.9 % (94-97); ABG PCO2 (T) 42.5 mmHg (35.0-48.0); ABG PO2 (T) 81.7 mmHg (75.0-100.0); ALLEN'S TEST POSITIVE; FCOHb 0.2 % (0.0-3.9); FMetHb 0.2 % (0.0-1.5); FO2Hb 95.5 % (94-97); TOTAL HEMOGLOBIN 12.5 G/dl (14.0-18.0)
--- NOTE | 2021-01-31 18:06 | NUR ---
- 0630 -Pt resting in bed, VS stable, respirations deep, drowsy, responds to physical touch, uncooperative - 1300 -Inserted NG tube in left nare , pt tolerated well. Verified placement x2, auscultated and aspirated. - MD and pharmacy consulted to substitute medications that are not compatible with NG tube. Dietary consulted for Tube Feeding, recommends Vital AF Goal 80 ml/hr with 150 ml of H2o free water q 4 hour. - 1300 Patients breathing increasing in depth and effort, notified MD,new orders, RT paged to place pt on BIPAP. - 1330 Pt placed on BIPAP @1330 65% 02/01 with a rate of 12, tolerating well. - 1700 TF started -1800 - pt in stable condition, report given to oncoming RN
--- NOTE | 2021-01-31 19:01 | NUR ---
Patient in room ICU 2040. I have received report from Mike and had the opportunity to ask questions and assume patient care.
[2021-02-01] VITALS (28 sets, daily range): BP systolic 98–139; BP diastolic 51–84
[2021-02-01] MEDS: LORazepam 2 mg/ml vial IV PRN ×3 (01:20→14:38)
[2021-02-01] MEDS: ipratropium/albuterol 3ml nebule NEB SCH ×6 (02:32→23:32)
[2021-02-01] MEDS: pantoprazole 40MG/NS 100ML BAG 100 ML IV SCH ×5 (03:49→20:02)
[2021-02-01] MEDS: dexmedetomidine/D5W 100mL 100 ML IV SCH ×3 (04:25→21:39)
[2021-02-01 06:34] LABS: ALANINE AMINOTRANSFERASE 39 U/L (12-78); ALBUMIN 2.2 G/DL (3.4-5.0); ALBUMIN/GLOBULIN RATIO 0.4 (1.1-1.5); ALKALINE PHOSPHATASE 134 IU/L (46-116); AMYLASE 93 U/L (25-115); ANION GAP 8 (8-16); ASPARTATE AMINO TRANSFERASE 91 U/L (10-37); BILIRUBIN,TOTAL 2.9 MG/DL (0.1-1.0); BLOOD UREA NITROGEN 13 MG/DL (7-18); BUN/CREATININE RATIO 14.8 (5.4-32.0); CALCIUM 8.4 MG/DL (8.5-10.1); CHLORIDE 109 MMOL/L (99-107); CREATININE 0.88 MG/DL (0.60-1.10); GLUCOSE 122 MG/DL (70-104); LIPASE 766 U/L (73-393); MAGNESIUM 1.8 MG/DL (1.5-2.4); PHOSPHORUS 3.1 MG/DL (2.3-4.5); POTASSIUM 3.5 MMOL/L (3.5-5.1); SODIUM 145 MMOL/L (135-145); TOTAL CARBON DIOXIDE 27.6 MMOL/L (24-32); TOTAL PROTEIN 7.3 G/DL (6.4-8.2); eGFR > 90 ML/MIN
[2021-02-01 06:40] LABS: BASOPHILS % (AUTO) 0.6 % (0-1); EOSINOPHILS # (AUTO) 0.4 X10'3 (0-0.9); EOSINOPHILS % (AUTO) 5.7 % (0-6); HEMATOCRIT 36.8 % (42.0-52.0); HEMOGLOBIN 12.3 g/dl (14.0-17.9); LYMPHOCYTES # (AUTO) 0.9 X10'3 (1.1-4.8); LYMPHOCYTES % (AUTO) 14.5 % (21-51); MEAN CORPUSCULAR HEMOGLOBIN 33.2 PG (27.0-31.0); MEAN CORPUSCULAR HGB CONC 33.3 g/dL (33.0-36.5); MEAN CORPUSCULAR VOLUME 99.7 FL (78-98); MEAN PLATELET VOLUME 9.3 FL (7.4-10.4); MONOCYTES # (AUTO) 1.2 X10'3 (0-0.9); MONOCYTES % (AUTO) 18.5 % (2-12); NEUTROPHILS # (AUTO) 3.8 X10'3 (1.8-7.7); NEUTROPHILS % (AUTO) 60.7 % (42-75); PLATELET COUNT 78 X10'3 (140-440); RED BLOOD COUNT 3.69 X10'6 (4.70-6.10); RED CELL DISTRIBUTION WIDTH 15.8 % (11.5-14.5); WHITE BLOOD COUNT 6.3 X10'3 (4.5-11.0)
[2021-02-01 06:55] LABS: TOTAL CELLS COUNTED 100
[2021-02-01 06:56] LABS: ANISOCYTOSIS 1+; LARGE PLATELETS FEW; PLATELET ESTIMATE DECREASED
[2021-02-01 06:57] LABS: POLYCHROMASIA FEW
[2021-02-01] MEDS: folic acid 1mg tablet PO SCH (08:00)
[2021-02-01] MEDS: lactobacillus rhamnosus 10,000 MMU CELLS/CAPSULE PO SCH ×2 (08:00→20:03)
[2021-02-01] MEDS: CefTRIAXone 2gm/D5W 50ml BAG 50 ML IV SCH (08:00)
[2021-02-01] MEDS: propranolol 10mg tablet PO SCH ×2 (08:00→20:00)
[2021-02-01] MEDS: lactulose 20gm/30ml cup PO SCH ×2 (08:00→20:00)
[2021-02-01] MEDS: thiamine 100mg tablet PO SCH (08:00)
[2021-02-01] MEDS: spironolactone 25 MG tablet PO SCH (08:00)
[2021-02-01] MEDS: naltrexone 50mg tablet PO SCH (08:00)
[2021-02-01] MEDS: K, MAG and/or Phos replacement - Verify level? MC SCH (08:00)
[2021-02-01] MEDS: multivitamins, therapeutics tablet PO SCH (08:00)
[2021-02-01] MEDS ORDERED: furosemide 40mg tablet PO SCH (08:00)
[2021-02-01 08:14] LABS: PREALBUMIN 8.9 MG/DL (19-36)
[2021-02-01] MEDS ORDERED: LORazepam 2 mg/ml vial IV PRN (09:55)
[2021-02-01] MEDS ORDERED: LORazepam 1 MG tablet PO PRN (09:55)
[2021-02-01] MEDS ORDERED: furosemide 40mg/4ml inj IV ONE (10:00)
[2021-02-01] MEDS ORDERED: furosemide 40mg/4ml inj ONE (10:04)
[2021-02-01 10:32] LABS: HIV ANTIBODY 1&2 RAPID NON-REACTIVE (Neg)
[2021-02-01] MEDS: metoclopramide 5 mg/ml inj IV SCH ×2 (14:39→20:00)
[2021-02-01] MEDS: furosemide 40mg/4ml inj IV SCH (20:01)
[2021-02-02] VITALS (22 sets, daily range): BP systolic 93–138; BP diastolic 51–80
[2021-02-02] MEDS: pantoprazole 40MG/NS 100ML BAG 100 ML IV SCH ×5 (01:14→22:10)
[2021-02-02] MEDS: dexmedetomidine/D5W 100mL 100 ML IV SCH ×4 (03:02→23:18)
[2021-02-02] MEDS: ipratropium/albuterol 3ml nebule NEB SCH ×6 (03:02→22:56)
[2021-02-02] MEDS: haloperidol lactate 5mg/ml inj IM PRN (03:30)
[2021-02-02] MEDS: metoclopramide 5 mg/ml inj IV SCH ×4 (04:16→20:37)
--- NOTE | 2021-02-02 06:00 | NUR ---
Patient in room ICU 2040. I have received report from DG Moreau and had the opportunity to ask questions and assume patient care.
[2021-02-02 06:08] LABS: BASOPHILS # (AUTO) 0.1 X10'3 (0-0.2); BASOPHILS % (AUTO) 0.8 % (0-1); EOSINOPHILS # (AUTO) 0.3 X10'3 (0-0.9); EOSINOPHILS % (AUTO) 2.8 % (0-6); HEMATOCRIT 38.6 % (42.0-52.0); HEMOGLOBIN 12.9 g/dl (14.0-17.9); LYMPHOCYTES # (AUTO) 1.2 X10'3 (1.1-4.8); LYMPHOCYTES % (AUTO) 12.4 % (21-51); MEAN CORPUSCULAR HEMOGLOBIN 33.3 PG (27.0-31.0); MEAN CORPUSCULAR HGB CONC 33.4 g/dL (33.0-36.5); MEAN CORPUSCULAR VOLUME 99.9 FL (78-98); MEAN PLATELET VOLUME 9.5 FL (7.4-10.4); MONOCYTES # (AUTO) 1.6 X10'3 (0-0.9); MONOCYTES % (AUTO) 17.2 % (2-12); NEUTROPHILS # (AUTO) 6.3 X10'3 (1.8-7.7); NEUTROPHILS % (AUTO) 66.8 % (42-75); PLATELET COUNT 123 X10'3 (140-440); RED BLOOD COUNT 3.87 X10'6 (4.70-6.10); RED CELL DISTRIBUTION WIDTH 15.7 % (11.5-14.5); WHITE BLOOD COUNT 9.5 X10'3 (4.5-11.0)
[2021-02-02 06:20] LABS: ALANINE AMINOTRANSFERASE 41 U/L (12-78); ALBUMIN 2.3 G/DL (3.4-5.0); ALBUMIN/GLOBULIN RATIO 0.4 (1.1-1.5); ALKALINE PHOSPHATASE 145 IU/L (46-116); AMYLASE 119 U/L (25-115); ANION GAP 10 (8-16); ASPARTATE AMINO TRANSFERASE 78 U/L (10-37); BILIRUBIN,TOTAL 2.7 MG/DL (0.1-1.0); BLOOD UREA NITROGEN 18 MG/DL (7-18); BUN/CREATININE RATIO 18.8 (5.4-32.0); CALCIUM 8.7 MG/DL (8.5-10.1); CHLORIDE 108 MMOL/L (99-107); CREATININE 0.96 MG/DL (0.60-1.10); GLUCOSE 117 MG/DL (70-104); LIPASE 687 U/L (73-393); MAGNESIUM 1.8 MG/DL (1.5-2.4); PHOSPHORUS 3.4 MG/DL (2.3-4.5); POTASSIUM 3.4 MMOL/L (3.5-5.1); SODIUM 145 MMOL/L (135-145); TOTAL CARBON DIOXIDE 27.5 MMOL/L (24-32); eGFR 90 ML/MIN
[2021-02-02] MEDS: K, MAG and/or Phos replacement - Verify level? MC SCH (08:00)
[2021-02-02] MEDS: furosemide 40mg/4ml inj IV SCH ×2 (08:04→20:37)
[2021-02-02] MEDS: lactulose 20gm/30ml cup PO SCH ×2 (08:05→20:37)
[2021-02-02] MEDS: thiamine 100mg tablet PO SCH (08:05)
[2021-02-02] MEDS: CefTRIAXone 2gm/D5W 50ml BAG 50 ML IV SCH (08:05)
[2021-02-02] MEDS: multivitamins, therapeutics tablet PO SCH (08:05)
[2021-02-02] MEDS: folic acid 1mg tablet PO SCH (08:06)
[2021-02-02] MEDS: lactobacillus rhamnosus 10,000 MMU CELLS/CAPSULE PO SCH ×2 (08:08→20:36)
[2021-02-02] MEDS: propranolol 10mg tablet PO SCH ×2 (08:08→20:36)
[2021-02-02] MEDS: spironolactone 25 MG tablet PO SCH (08:08)
[2021-02-02] MEDS: naltrexone 50mg tablet PO SCH (08:12)
--- NOTE | 2021-02-02 10:01 | NUR ---
Per MD Abrahan davidson to change K protocol from K-dur to effer Kso we can crush for NG tube route.
[2021-02-02] MEDS ORDERED: POTASSIUM BICARBONATE/CIT AC 10 MEQ TABLET.EFF PO PRN (10:20)
[2021-02-02 10:46] LABS: TOTAL CELLS COUNTED 100
[2021-02-02 10:47] LABS: PLATELET ESTIMATE DECREASED
[2021-02-02] MEDS: POTASSIUM BICARBONATE/CIT AC 10 MEQ TABLET.EFF PO PRN ×3 (11:01→20:54)
--- NOTE | 2021-02-02 18:12 | NUR ---
Problems reprioritized. Patient report given, questions answered & plan of care reviewed with DG Moreau.
[2021-02-03] VITALS (23 sets, daily range): BP systolic 105–135; BP diastolic 43–86
[2021-02-03] MEDS: metoclopramide 5 mg/ml inj IV SCH ×4 (02:28→20:08)
[2021-02-03] MEDS: ipratropium/albuterol 3ml nebule NEB SCH ×5 (02:59→21:39)
[2021-02-03] MEDS: pantoprazole 40MG/NS 100ML BAG 100 ML IV SCH ×2 (05:16→08:46)
[2021-02-03] MEDS: dexmedetomidine/D5W 100mL 100 ML IV SCH ×5 (05:20→22:45)
--- NOTE | 2021-02-03 06:00 | NUR ---
Patient in room ICU 2040. I have received report from Danny CONTE and had the opportunity to ask questions and assume patient care.
[2021-02-03] MEDS: K, MAG and/or Phos replacement - Verify level? MC SCH (08:00)
[2021-02-03] MEDS: CefTRIAXone 2gm/D5W 50ml BAG 50 ML IV SCH (08:48)
[2021-02-03] MEDS: lactulose 20gm/30ml cup PO SCH ×2 (08:50→20:08)
[2021-02-03] MEDS: furosemide 40mg/4ml inj IV SCH ×2 (08:50→20:08)
[2021-02-03] MEDS: propranolol 10mg tablet PO SCH ×2 (08:51→20:10)
[2021-02-03] MEDS: folic acid 1mg tablet PO SCH (08:51)
[2021-02-03] MEDS: lactobacillus rhamnosus 10,000 MMU CELLS/CAPSULE PO SCH ×2 (08:51→20:10)
[2021-02-03] MEDS: multivitamins, therapeutics tablet PO SCH (08:51)
[2021-02-03] MEDS: spironolactone 25 MG tablet PO SCH (09:03)
[2021-02-03] MEDS: naltrexone 50mg tablet PO SCH (09:03)
[2021-02-03] MEDS: thiamine 100mg tablet PO SCH (09:03)
[2021-02-03] MEDS ORDERED: LORazepam 1 MG tablet PO PRN (09:55)
--- NOTE | 2021-02-03 11:29 | NUR ---
Received call from that Dr Raymond/Merritt? is pt's psychiatrist and records of curernt meds will be faxed to ICU.
--- NOTE | 2021-02-03 11:53 | NUR ---
Lion Consult: Pt tolerating TF at goal GRV WNL. LBM 02/01 receiving routine lactulose and reglan Q6H per EMR. Lion 12 w/ no edema and skin intact per EMR. Prior free water flush recs stopped w/ pt receiving lasix -3.6kg w/ -6.7L fluid balance past 6 days per EMR. Will continue to monitor. Recs: 1) Continuous TF using Vital AF at 80ml/hr goal to provide 1920ml volume, 2304kcals, 144g protein, 1555ml H2O. 2) Additional water flush per ticket printer; -6.7L fluid balance receiving lasix per MD 3) PALB Q /; daily wts 4) Routine bowel care Addendum: 02/03/21 at [address] Amended: Links added.
[2021-02-03 12:29] LABS: BASOPHILS # (AUTO) 0.1 X10'3 (0-0.2); BASOPHILS % (AUTO) 0.7 % (0-1); EOSINOPHILS # (AUTO) 0.3 X10'3 (0-0.9); EOSINOPHILS % (AUTO) 2.5 % (0-6); HEMATOCRIT 36.3 % (42.0-52.0); HEMOGLOBIN 12.1 g/dl (14.0-17.9); LYMPHOCYTES # (AUTO) 1.1 X10'3 (1.1-4.8); LYMPHOCYTES % (AUTO) 9.7 % (21-51); MEAN CORPUSCULAR HEMOGLOBIN 32.8 PG (27.0-31.0); MEAN CORPUSCULAR HGB CONC 33.4 g/dL (33.0-36.5); MEAN CORPUSCULAR VOLUME 98.2 FL (78-98); MEAN PLATELET VOLUME 9.6 FL (7.4-10.4); MONOCYTES % (AUTO) 9.3 % (2-12); NEUTROPHILS # (AUTO) 8.8 X10'3 (1.8-7.7); NEUTROPHILS % (AUTO) 77.8 % (42-75); PLATELET COUNT 140 X10'3 (140-440); RED CELL DISTRIBUTION WIDTH 15.8 % (11.5-14.5); WHITE BLOOD COUNT 11.3 X10'3 (4.5-11.0)
[2021-02-03 12:48] LABS: ALANINE AMINOTRANSFERASE 43 U/L (12-78); ALBUMIN 2.2 G/DL (3.4-5.0); ALBUMIN/GLOBULIN RATIO 0.4 (1.1-1.5); ALKALINE PHOSPHATASE 142 IU/L (46-116); AMYLASE 120 U/L (25-115); ANION GAP 10 (8-16); ASPARTATE AMINO TRANSFERASE 70 U/L (10-37); BILIRUBIN,TOTAL 1.9 MG/DL (0.1-1.0); BLOOD UREA NITROGEN 16 MG/DL (7-18); BUN/CREATININE RATIO 22.5 (5.4-32.0); CALCIUM 8.8 MG/DL (8.5-10.1); CHLORIDE 109 MMOL/L (99-107); CREATININE 0.71 MG/DL (0.60-1.10); GLUCOSE 169 MG/DL (70-104); LIPASE 834 U/L (73-393); MAGNESIUM 1.9 MG/DL (1.5-2.4); PHOSPHORUS 4.2 MG/DL (2.3-4.5); POTASSIUM 3.4 MMOL/L (3.5-5.1); PREALBUMIN 11.9 MG/DL (19-36); SODIUM 148 MMOL/L (135-145); TOTAL CARBON DIOXIDE 29.3 MMOL/L (24-32); TOTAL PROTEIN 7.8 G/DL (6.4-8.2); eGFR > 90 ML/MIN
[2021-02-03] MEDS ORDERED: potassium Cl 20 mEq SR tablet PO PRN ×2 (13:30)
[2021-02-03] MEDS ORDERED: magnesium 4gm in 100ml NS 100 ML IV PRN (13:30)
[2021-02-03] MEDS ORDERED: potassium Cl 40MEQ/1/2NS 520ml 520 ML IV PRN (13:30)
[2021-02-03] MEDS ORDERED: magnesium Cl slow-release 64mg tablet PO PRN (13:30)
[2021-02-03] MEDS: enoxaparin 40mg/0.4ml syringe SUBCUT SCH (13:50)
[2021-02-03] MEDS: POTASSIUM BICARBONATE/CIT AC 10 MEQ TABLET.EFF PO PRN ×2 (13:51→20:09)
--- NOTE | 2021-02-03 17:59 | NUR ---
pT MOTHER ARRIVED THIS EVENING. UPDATE GIVEN ON PT STATUS. SHE IS SPENDING TIME AT BEDSIDE. SON CALM AND AAWARE SHE IS PRESENT, OPENED EYES TO VOICE AND GREETED HER.
--- NOTE | 2021-02-03 18:32 | NUR ---
Problems reprioritized. Patient report given, questions answered & plan of care reviewed with Belle CONTE.
[2021-02-03] MEDS: LORazepam 2 mg/ml vial IV PRN (19:40)
[2021-02-03] MEDS: K and/or MAG REPLACEMENT MC SCH (19:54)
[2021-02-04] VITALS (25 sets, daily range): BP systolic 87–135; BP diastolic 28–89
[2021-02-04] MEDS: ipratropium/albuterol 3ml nebule NEB SCH ×7 (00:12→23:29)
[2021-02-04] MEDS: LORazepam 2 mg/ml vial IV PRN ×2 (00:55→14:05)
[2021-02-04] MEDS: metoclopramide 5 mg/ml inj IV SCH ×4 (02:17→20:19)
[2021-02-04] MEDS: dexmedetomidine/D5W 100mL 100 ML IV SCH ×7 (02:18→20:30)
[2021-02-04 04:06] LABS: BASOPHILS # (AUTO) 0.1 X10'3 (0-0.2); BASOPHILS % (AUTO) 0.8 % (0-1); EOSINOPHILS # (AUTO) 0.2 X10'3 (0-0.9); HEMATOCRIT 34.7 % (42.0-52.0); HEMOGLOBIN 11.8 g/dl (14.0-17.9); LYMPHOCYTES # (AUTO) 1.2 X10'3 (1.1-4.8); LYMPHOCYTES % (AUTO) 12.1 % (21-51); MEAN CORPUSCULAR HEMOGLOBIN 33.7 PG (27.0-31.0); MEAN CORPUSCULAR VOLUME 98.9 FL (78-98); MEAN PLATELET VOLUME 9.2 FL (7.4-10.4); MONOCYTES # (AUTO) 0.8 X10'3 (0-0.9); MONOCYTES % (AUTO) 7.5 % (2-12); NEUTROPHILS # (AUTO) 7.8 X10'3 (1.8-7.7); NEUTROPHILS % (AUTO) 77.6 % (42-75); PLATELET COUNT 143 X10'3 (140-440); RED BLOOD COUNT 3.51 X10'6 (4.70-6.10); WHITE BLOOD COUNT 10.1 X10'3 (4.5-11.0)
[2021-02-04 04:44] LABS: ALANINE AMINOTRANSFERASE 50 U/L (12-78); ALBUMIN 2.2 G/DL (3.4-5.0); ALBUMIN/GLOBULIN RATIO 0.4 (1.1-1.5); ALKALINE PHOSPHATASE 140 IU/L (46-116); AMYLASE 100 U/L (25-115); ANION GAP 8 (8-16); ASPARTATE AMINO TRANSFERASE 74 U/L (10-37); BILIRUBIN,TOTAL 1.9 MG/DL (0.1-1.0); BLOOD UREA NITROGEN 16 MG/DL (7-18); BUN/CREATININE RATIO 22.9 (5.4-32.0); CALCIUM 8.5 MG/DL (8.5-10.1); CHLORIDE 107 MMOL/L (99-107); GLUCOSE 237 MG/DL (70-104); LIPASE 669 U/L (73-393); MAGNESIUM 1.9 MG/DL (1.5-2.4); POTASSIUM 3.6 MMOL/L (3.5-5.1); SODIUM 144 MMOL/L (135-145); TOTAL CARBON DIOXIDE 29.3 MMOL/L (24-32); TOTAL PROTEIN 7.7 G/DL (6.4-8.2); eGFR > 90 ML/MIN
--- NOTE | 2021-02-04 06:34 | NUR ---
Patient in room ICU 2040. I have received report from Belle CONTE and had the opportunity to ask questions and assume patient care.
[2021-02-04] MEDS: K and/or MAG REPLACEMENT MC SCH ×2 (08:00→20:00)
[2021-02-04 08:15] LABS: ABG BASE EXCESS 4.9 mmol/L (-2.0-2.0); ABG HCO3 28.6 mmol/L (22.0-26.0); ABG OXYGEN SATURATION 96.3 % (94-97); ABG PCO2 (T) 40.7 mmHg (35.0-48.0); ALLEN'S TEST NEGATIVE; FCOHb 0.2 % (0.0-3.9); FMetHb 0.2 % (0.0-1.5); FO2Hb 95.9 % (94-97); PATIENT TEMPERATURE 38.2; RESPIRATORY RATE 12 b/min; TOTAL HEMOGLOBIN 12.9 G/dl (14.0-18.0)
[2021-02-04] MEDS: CefTRIAXone 2gm/D5W 50ml BAG 50 ML IV SCH (08:48)
[2021-02-04] MEDS: spironolactone 25 MG tablet PO SCH (08:49)
[2021-02-04] MEDS: lactulose 20gm/30ml cup PO SCH ×2 (08:49→20:19)
[2021-02-04] MEDS: pantoprazole 40 MG vial IV SCH (08:49)
[2021-02-04] MEDS: furosemide 40mg/4ml inj IV SCH ×2 (08:49→20:19)
[2021-02-04] MEDS: enoxaparin 40mg/0.4ml syringe SUBCUT SCH (08:49)
[2021-02-04] MEDS: thiamine 100mg tablet PO SCH (08:50)
[2021-02-04] MEDS: propranolol 10mg tablet PO SCH ×2 (08:50→20:19)
[2021-02-04] MEDS: folic acid 1mg tablet PO SCH (08:50)
[2021-02-04] MEDS: metolazone 2.5mg tablet PO SCH (08:50)
[2021-02-04] MEDS: multivitamins, therapeutics tablet PO SCH (08:50)
[2021-02-04] MEDS: naltrexone 50mg tablet PO SCH (08:50)
[2021-02-04] MEDS: lactobacillus rhamnosus 10,000 MMU CELLS/CAPSULE PO SCH ×2 (08:50→20:19)
[2021-02-04] MEDS ORDERED: MESSAGE TO PHARMACY PO ONE (14:15)
[2021-02-04] MEDS ORDERED: dextrose ORAL solution 15 GM/59 ML bottle PO PRN ×2 (14:15)
[2021-02-04] MEDS ORDERED: dextrose 50%-water 50ml dispensing syringe IV PRN ×2 (14:15)
[2021-02-04] MEDS ORDERED: glucagon, human recombinant 1mg kit SUBCUT PRN (14:15)
[2021-02-04 15:10] LABS: HEMOGLOBIN A1C 5.3 % (4.5-6.2)
[2021-02-04] MEDS: insulin regular, human U-100 3ml vial - multi-dose SQ SCH ×2 (15:54→20:35)
--- NOTE | 2021-02-04 18:12 | NUR ---
Problems reprioritized. Patient report given, questions answered & plan of care reviewed with Belle CONTE.
[2021-02-04] MEDS: insulin glargine (Lantus) pen - multi-dose SQ SCH (20:36)
--- NOTE | 2021-02-04 21:34 | NUR ---
MD RAMESH NOTIFIED OF PT HYPOTENSION AFTER SCHEDULED PM MEDS ADMINISTERED, VERBALIZEDD WOULD REVIEW PT CHART AND INPUT ORDERS AFTER REVIEWING. WILL CONTINUE TO MONITOR.
[2021-02-05] VITALS (24 sets, daily range): BP systolic 89–124; BP diastolic 48–84
[2021-02-05] MEDS: metoclopramide 5 mg/ml inj IV SCH ×4 (01:08→21:19)
[2021-02-05] MEDS: dexmedetomidine/D5W 100mL 100 ML IV SCH ×6 (01:09→17:38)
[2021-02-05] MEDS: insulin regular, human U-100 3ml vial - multi-dose SQ SCH ×4 (02:24→21:52)
[2021-02-05] MEDS: ipratropium/albuterol 3ml nebule NEB SCH ×6 (03:31→23:44)
[2021-02-05] MEDS: LORazepam 2 mg/ml vial IV PRN (03:44)
[2021-02-05 04:23] LABS: ALBUMIN 2.4 G/DL (3.4-5.0); ANION GAP 9 (8-16); BLOOD UREA NITROGEN 19 MG/DL (7-18); BUN/CREATININE RATIO 22.4 (5.4-32.0); CALCIUM 8.9 MG/DL (8.5-10.1); CHLORIDE 104 MMOL/L (99-107); CREATININE 0.85 MG/DL (0.60-1.10); GLUCOSE 218 MG/DL (70-104); MAGNESIUM 2.1 MG/DL (1.5-2.4); PHOSPHORUS 4.7 MG/DL (2.3-4.5); POTASSIUM 3.7 MMOL/L (3.5-5.1); SODIUM 142 MMOL/L (135-145); TOTAL CARBON DIOXIDE 29.1 MMOL/L (24-32); eGFR > 90 ML/MIN
[2021-02-05 04:34] LABS: BASOPHILS # (AUTO) 0.1 X10'3 (0-0.2); EOSINOPHILS # (AUTO) 0.2 X10'3 (0-0.9); EOSINOPHILS % (AUTO) 1.6 % (0-6); HEMATOCRIT 34.9 % (42.0-52.0); HEMOGLOBIN 11.5 g/dl (14.0-17.9); LYMPHOCYTES # (AUTO) 1.3 X10'3 (1.1-4.8); MEAN CORPUSCULAR HEMOGLOBIN 32.8 PG (27.0-31.0); MEAN CORPUSCULAR VOLUME 99.2 FL (78-98); MEAN PLATELET VOLUME 9.8 FL (7.4-10.4); MONOCYTES # (AUTO) 0.8 X10'3 (0-0.9); MONOCYTES % (AUTO) 6.6 % (2-12); NEUTROPHILS # (AUTO) 9.7 X10'3 (1.8-7.7); NEUTROPHILS % (AUTO) 79.8 % (42-75); PLATELET COUNT 161 X10'3 (140-440); RED BLOOD COUNT 3.52 X10'6 (4.70-6.10); RED CELL DISTRIBUTION WIDTH 15.8 % (11.5-14.5); WHITE BLOOD COUNT 12.1 X10'3 (4.5-11.0)
[2021-02-05] MEDS: haloperidol lactate 5mg/ml inj IM PRN (05:24)
[2021-02-05] MEDS: K and/or MAG REPLACEMENT MC SCH ×2 (08:00→20:00)
[2021-02-05] MEDS: furosemide 40mg/4ml inj IV SCH ×2 (08:05→21:19)
[2021-02-05] MEDS: pantoprazole 40 MG vial IV SCH (08:05)
[2021-02-05] MEDS: CefTRIAXone 2gm/D5W 50ml BAG 50 ML IV SCH (08:05)
[2021-02-05] MEDS: lactulose 20gm/30ml cup PO SCH (08:06)
[2021-02-05] MEDS: thiamine 100mg tablet PO SCH (08:06)
[2021-02-05] MEDS: lactobacillus rhamnosus 10,000 MMU CELLS/CAPSULE PO SCH (08:06)
[2021-02-05] MEDS: enoxaparin 40mg/0.4ml syringe SUBCUT SCH (08:06)
[2021-02-05] MEDS: multivitamins, therapeutics tablet PO SCH (08:07)
[2021-02-05] MEDS: spironolactone 25 MG tablet PO SCH (08:07)
[2021-02-05] MEDS: folic acid 1mg tablet PO SCH (08:07)
[2021-02-05] MEDS: metolazone 2.5mg tablet PO SCH (08:25)
[2021-02-05] MEDS: naltrexone 50mg tablet PO SCH (08:25)
[2021-02-05] MEDS ORDERED: olanzapine 10mg tablet PO SCH (10:25)
[2021-02-05] MEDS ORDERED: dextrose ORAL solution 15 GM/59 ML bottle NG PRN ×2 (11:49→11:53)
[2021-02-05] MEDS ORDERED: acetaminophen 325mg/10.15ml oral unit dose solution NG PRN (11:50)
[2021-02-05] MEDS ORDERED: folic acid 1mg tablet OGT SCH (11:51)
[2021-02-05] MEDS ORDERED: magnesium hydroxide 30ml (MOM) UD suspension NG PRN (11:54)
[2021-02-05] MEDS ORDERED: POTASSIUM BICARB 20meq eff tab 20 MEQ TABLET.EFF NG PRN ×2 (11:59→12:08)
[2021-02-05] MEDS ORDERED: POTASSIUM BICARB 20meq eff tab 20 MEQ TABLET.EFF PO PRN (12:08)
[2021-02-05] MEDS: propranolol 10mg tablet NG SCH (20:00)
[2021-02-05 20:48] LABS: BASOPHILS # (AUTO) 0.1 X10'3 (0-0.2); BASOPHILS % (AUTO) 0.7 % (0-1); EOSINOPHILS # (AUTO) 0.2 X10'3 (0-0.9); EOSINOPHILS % (AUTO) 1.4 % (0-6); HEMATOCRIT 35.2 % (42.0-52.0); HEMOGLOBIN 11.8 g/dl (14.0-17.9); LYMPHOCYTES # (AUTO) 1.4 X10'3 (1.1-4.8); LYMPHOCYTES % (AUTO) 8.8 % (21-51); MEAN CORPUSCULAR HEMOGLOBIN 33.1 PG (27.0-31.0); MEAN CORPUSCULAR HGB CONC 33.6 g/dL (33.0-36.5); MEAN CORPUSCULAR VOLUME 98.3 FL (78-98); MEAN PLATELET VOLUME 9.6 FL (7.4-10.4); MONOCYTES # (AUTO) 0.9 X10'3 (0-0.9); MONOCYTES % (AUTO) 5.9 % (2-12); NEUTROPHILS % (AUTO) 83.2 % (42-75); PLATELET COUNT 166 X10'3 (140-440); RED BLOOD COUNT 3.58 X10'6 (4.70-6.10); RED CELL DISTRIBUTION WIDTH 15.6 % (11.5-14.5); WHITE BLOOD COUNT 15.7 X10'3 (4.5-11.0)
[2021-02-05] MEDS: lactulose 20gm/30ml cup NG SCH (21:18)
[2021-02-05] MEDS: lactobacillus rhamnosus 10,000 MMU CELLS/CAPSULE NG SCH (21:18)
[2021-02-05 21:42] LABS: ALANINE AMINOTRANSFERASE 81 U/L (12-78); ALBUMIN 2.5 G/DL (3.4-5.0); ALBUMIN/GLOBULIN RATIO 0.4 (1.1-1.5); ALKALINE PHOSPHATASE 142 IU/L (46-116); ANION GAP 10 (8-16); ASPARTATE AMINO TRANSFERASE 92 U/L (10-37); BLOOD UREA NITROGEN 24 MG/DL (7-18); BUN/CREATININE RATIO 30.8 (5.4-32.0); CALCIUM 9.1 MG/DL (8.5-10.1); CHLORIDE 102 MMOL/L (99-107); CREATININE 0.78 MG/DL (0.60-1.10); GLUCOSE 157 MG/DL (70-104); MAGNESIUM 2.2 MG/DL (1.5-2.4); PHOSPHORUS 4.6 MG/DL (2.3-4.5); POTASSIUM 4.3 MMOL/L (3.5-5.1); SODIUM 141 MMOL/L (135-145); TOTAL CARBON DIOXIDE 29.1 MMOL/L (24-32); TOTAL PROTEIN 8.6 G/DL (6.4-8.2); eGFR > 90 ML/MIN
[2021-02-05] MEDS: insulin glargine (Lantus) pen - multi-dose SQ SCH (21:50)
[2021-02-06] VITALS (23 sets, daily range): BP systolic 99–149; BP diastolic 56–96
[2021-02-06] MEDS: dexmedetomidine/D5W 100mL 100 ML IV SCH ×3 (02:01→20:13)
[2021-02-06] MEDS: haloperidol 5mg tablet NG PRN (02:02)
[2021-02-06] MEDS: metoclopramide 5 mg/ml inj IV SCH ×4 (02:02→20:00)
[2021-02-06] MEDS: ipratropium/albuterol 3ml nebule NEB SCH ×6 (03:58→23:31)
[2021-02-06] MEDS: lactulose 20gm/30ml cup NG SCH ×2 (08:00→20:00)
[2021-02-06] MEDS: K and/or MAG REPLACEMENT MC SCH ×2 (08:00→20:00)
[2021-02-06] MEDS: propranolol 10mg tablet NG SCH ×2 (08:00→20:12)
[2021-02-06] MEDS: MULTIVIT-MIN/FERROUS GLUCONATE 9 MG/15 ML LIQUID NG SCH (08:08)
[2021-02-06] MEDS: folic acid 1mg tablet NG SCH (08:09)
[2021-02-06] MEDS: enoxaparin 40mg/0.4ml syringe SUBCUT SCH (08:10)
[2021-02-06] MEDS: thiamine 100mg tablet NG SCH (08:10)
[2021-02-06] MEDS: lactobacillus rhamnosus 10,000 MMU CELLS/CAPSULE NG SCH ×2 (08:11→20:12)
[2021-02-06] MEDS: olanzapine 10mg tablet NG SCH (08:11)
[2021-02-06] MEDS: naltrexone 50mg tablet NG SCH (08:11)
[2021-02-06] MEDS: lansoprazole 15mg solutab NG SCH (08:11)
[2021-02-06] MEDS: furosemide 40mg/4ml inj IV SCH ×2 (08:12→20:12)
[2021-02-06] MEDS: metolazone 2.5mg tablet NG SCH (08:12)
[2021-02-06] MEDS: CefTRIAXone 2gm/D5W 50ml BAG 50 ML IV SCH (08:12)
[2021-02-06] MEDS: spironolactone 25 MG tablet NG SCH (08:13)
--- NOTE | 2021-02-06 08:35 | NUR ---
Reassessment: Pt continues to tolerate TF at goal of Vital AF at 80ml/hr. Pt noted to be on light sedation d/t agitation. LBM 02/05 receiving routine lactulose and reglan. No change to nutrition recommendations at this time, will continue to monitor. Recs: 1) Continuous TF using Vital AF at 80ml/hr goal to provide 1920ml volume, 2304kcals, 144g protein, 1555ml H2O. 2) Additional water flush per field ring assembler; -8L fluid balance receiving lasix per MD 3) PALB Q ; daily wts 4) Routine bowel care Addendum: 02/06/21 at [address] Amended: Links added.
[2021-02-06] MEDS: insulin regular, human U-100 3ml vial - multi-dose SQ SCH (09:03)
[2021-02-06 13:32] LABS: BASOPHILS # (AUTO) 0.1 X10'3 (0-0.2); BASOPHILS % (AUTO) 0.8 % (0-1); EOSINOPHILS # (AUTO) 0.2 X10'3 (0-0.9); EOSINOPHILS % (AUTO) 1.5 % (0-6); HEMATOCRIT 35.7 % (42.0-52.0); HEMOGLOBIN 11.9 g/dl (14.0-17.9); LYMPHOCYTES # (AUTO) 1.4 X10'3 (1.1-4.8); LYMPHOCYTES % (AUTO) 8.3 % (21-51); MEAN CORPUSCULAR HEMOGLOBIN 32.6 PG (27.0-31.0); MEAN CORPUSCULAR HGB CONC 33.4 g/dL (33.0-36.5); MEAN CORPUSCULAR VOLUME 97.5 FL (78-98); MEAN PLATELET VOLUME 9.1 FL (7.4-10.4); MONOCYTES % (AUTO) 6.4 % (2-12); NEUTROPHILS # (AUTO) 13.4 X10'3 (1.8-7.7); PLATELET COUNT 162 X10'3 (140-440); RED BLOOD COUNT 3.66 X10'6 (4.70-6.10); RED CELL DISTRIBUTION WIDTH 15.2 % (11.5-14.5); WHITE BLOOD COUNT 16.2 X10'3 (4.5-11.0)
[2021-02-06 14:00] LABS: ALBUMIN 2.7 G/DL (3.4-5.0); ANION GAP 8 (8-16); BLOOD UREA NITROGEN 31 MG/DL (7-18); BUN/CREATININE RATIO 37.3 (5.4-32.0); CALCIUM 9.7 MG/DL (8.5-10.1); CHLORIDE 101 MMOL/L (99-107); CREATININE 0.83 MG/DL (0.60-1.10); GLUCOSE 125 MG/DL (70-104); MAGNESIUM 2.3 MG/DL (1.5-2.4); PHOSPHORUS 4.9 MG/DL (2.3-4.5); POTASSIUM 4.1 MMOL/L (3.5-5.1); SODIUM 139 MMOL/L (135-145); TOTAL CARBON DIOXIDE 30.2 MMOL/L (24-32); eGFR > 90 ML/MIN
--- NOTE | 2021-02-06 18:35 | NUR ---
I have received report and assumed care of pt, pt in bed with a instructor of nursing at bedside for pts safety, pt has moments of agitation, responds to stimuli that I can not see, Precedex being titrated down as tolerated, pt needing frequent redirecting.
[2021-02-06] MEDS: insulin glargine (Lantus) pen - multi-dose SQ SCH (21:00)
--- NOTE | 2021-02-06 21:10 | NUR ---
pt refused insulin aware Ativan given for anxiety
[2021-02-06] MEDS: LORazepam 2 mg/ml vial IV PRN (22:17)
[2021-02-07] VITALS (23 sets, daily range): BP systolic 97–133; BP diastolic 57–86
[2021-02-07] MEDS: haloperidol 5mg tablet NG PRN ×2 (00:50→21:40)
[2021-02-07] MEDS: dexmedetomidine/D5W 100mL 100 ML IV SCH (02:59)
[2021-02-07] MEDS: metoclopramide 5 mg/ml inj IV SCH ×4 (02:59→20:00)
[2021-02-07] MEDS: ipratropium/albuterol 3ml nebule NEB SCH ×6 (03:24→23:57)
--- NOTE | 2021-02-07 03:28 | NUR ---
pt refused accu check
[2021-02-07 06:27] LABS: BASOPHILS # (AUTO) 0.2 X10'3 (0-0.2); BASOPHILS % (AUTO) 1.2 % (0-1); EOSINOPHILS # (AUTO) 0.2 X10'3 (0-0.9); EOSINOPHILS % (AUTO) 1.4 % (0-6); HEMATOCRIT 35.3 % (42.0-52.0); HEMOGLOBIN 12.1 g/dl (14.0-17.9); LYMPHOCYTES # (AUTO) 1.4 X10'3 (1.1-4.8); LYMPHOCYTES % (AUTO) 10.1 % (21-51); MEAN CORPUSCULAR HEMOGLOBIN 33.7 PG (27.0-31.0); MEAN CORPUSCULAR HGB CONC 34.4 g/dL (33.0-36.5); MEAN CORPUSCULAR VOLUME 97.9 FL (78-98); MEAN PLATELET VOLUME 9.8 FL (7.4-10.4); MONOCYTES % (AUTO) 7.8 % (2-12); NEUTROPHILS # (AUTO) 10.6 X10'3 (1.8-7.7); NEUTROPHILS % (AUTO) 79.5 % (42-75); PLATELET COUNT 165 X10'3 (140-440); RED BLOOD COUNT 3.61 X10'6 (4.70-6.10); RED CELL DISTRIBUTION WIDTH 14.8 % (11.5-14.5); WHITE BLOOD COUNT 13.3 X10'3 (4.5-11.0)
[2021-02-07 06:37] LABS: ALBUMIN 2.8 G/DL (3.4-5.0); ANION GAP 7 (8-16); BLOOD UREA NITROGEN 34 MG/DL (7-18); BUN/CREATININE RATIO 41.5 (5.4-32.0); CALCIUM 9.5 MG/DL (8.5-10.1); CHLORIDE 100 MMOL/L (99-107); CREATININE 0.82 MG/DL (0.60-1.10); GLUCOSE 131 MG/DL (70-104); MAGNESIUM 2.5 MG/DL (1.5-2.4); PHOSPHORUS 4.3 MG/DL (2.3-4.5); POTASSIUM 4.3 MMOL/L (3.5-5.1); PREALBUMIN 18.2 MG/DL (19-36); SODIUM 138 MMOL/L (135-145); TOTAL CARBON DIOXIDE 30.6 MMOL/L (24-32); eGFR > 90 ML/MIN
[2021-02-07] MEDS: K and/or MAG REPLACEMENT MC SCH ×2 (08:00→20:00)
[2021-02-07] MEDS: lactulose 20gm/30ml cup NG SCH (08:00)
[2021-02-07] MEDS ORDERED: pantoprazole 40 MG vial IV SCH (08:00)
[2021-02-07] MEDS: enoxaparin 40mg/0.4ml syringe SUBCUT SCH (08:31)
[2021-02-07] MEDS: metolazone 2.5mg tablet NG SCH (08:31)
[2021-02-07] MEDS: furosemide 40mg/4ml inj IV SCH ×2 (08:32→20:14)
[2021-02-07] MEDS: folic acid 1mg tablet NG SCH (08:32)
[2021-02-07] MEDS: olanzapine 10mg tablet NG SCH (08:32)
[2021-02-07] MEDS: lactobacillus rhamnosus 10,000 MMU CELLS/CAPSULE NG SCH ×2 (08:32→20:15)
[2021-02-07] MEDS: thiamine 100mg tablet NG SCH (08:32)
[2021-02-07] MEDS: naltrexone 50mg tablet NG SCH (08:32)
[2021-02-07] MEDS: MULTIVIT-MIN/FERROUS GLUCONATE 9 MG/15 ML LIQUID NG SCH (08:32)
[2021-02-07] MEDS: spironolactone 25 MG tablet NG SCH (08:33)
[2021-02-07] MEDS: propranolol 10mg tablet NG SCH ×2 (08:34→20:15)
[2021-02-07] MEDS: CefTRIAXone 2gm/D5W 50ml BAG 50 ML IV SCH (08:34)
[2021-02-07] MEDS: lansoprazole 15mg solutab NG SCH (08:34)
[2021-02-07] MEDS: insulin regular, human U-100 3ml vial - multi-dose SQ SCH ×3 (09:51→20:33)
[2021-02-07] MEDS: ondansetron/PF 4mg/2ml inj IV PRN (18:52)
[2021-02-07] MEDS: heparin, porcine 5000 units/ml vial SQ SCH ×2 (19:30→20:15)
[2021-02-07] MEDS: LORazepam 2 mg/ml vial IV PRN (20:27)
[2021-02-07] MEDS: insulin glargine (Lantus) pen - multi-dose SQ SCH (20:35)
[2021-02-07] MEDS ORDERED: Melatonin 3mg tablet NG SCH (21:00)
[2021-02-07] MEDS ORDERED: olanzapine 10mg tablet NG ONE (21:50)
[2021-02-07] MEDS: Melatonin 3mg tablet NG SCH (22:08)
[2021-02-07] MEDS: haloperidol lactate 5mg/ml inj IM PRN (23:00)
[2021-02-08] VITALS (22 sets, daily range): BP systolic 109–132; BP diastolic 62–86
[2021-02-08] MEDS: metoclopramide 5 mg/ml inj IV SCH ×4 (02:37→20:37)
[2021-02-08] MEDS: haloperidol lactate 5mg/ml inj IM PRN (02:38)
[2021-02-08 02:43] LABS: BASOPHILS # (AUTO) 0.1 X10'3 (0-0.2); EOSINOPHILS # (AUTO) 0.2 X10'3 (0-0.9); EOSINOPHILS % (AUTO) 1.6 % (0-6); HEMATOCRIT 36.7 % (42.0-52.0); HEMOGLOBIN 12.5 g/dl (14.0-17.9); LYMPHOCYTES # (AUTO) 1.3 X10'3 (1.1-4.8); LYMPHOCYTES % (AUTO) 9.4 % (21-51); MEAN CORPUSCULAR HEMOGLOBIN 33.3 PG (27.0-31.0); MEAN CORPUSCULAR VOLUME 98.1 FL (78-98); MEAN PLATELET VOLUME 9.6 FL (7.4-10.4); MONOCYTES # (AUTO) 1.4 X10'3 (0-0.9); PLATELET COUNT 207 X10'3 (140-440); RED BLOOD COUNT 3.74 X10'6 (4.70-6.10); RED CELL DISTRIBUTION WIDTH 15.4 % (11.5-14.5); WHITE BLOOD COUNT 14.1 X10'3 (4.5-11.0)
[2021-02-08] MEDS: insulin regular, human U-100 3ml vial - multi-dose SQ SCH ×4 (02:44→20:51)
[2021-02-08 03:08] LABS: ALBUMIN 2.9 G/DL (3.4-5.0); ANION GAP 8 (8-16); BLOOD UREA NITROGEN 35 MG/DL (7-18); BUN/CREATININE RATIO 45.5 (5.4-32.0); CALCIUM 9.7 MG/DL (8.5-10.1); CHLORIDE 100 MMOL/L (99-107); CREATININE 0.77 MG/DL (0.60-1.10); GLUCOSE 157 MG/DL (70-104); MAGNESIUM 2.6 MG/DL (1.5-2.4); PHOSPHORUS 4.4 MG/DL (2.3-4.5); POTASSIUM 4.1 MMOL/L (3.5-5.1); SODIUM 138 MMOL/L (135-145); TOTAL CARBON DIOXIDE 29.9 MMOL/L (24-32); eGFR > 90 ML/MIN
[2021-02-08] MEDS: ipratropium/albuterol 3ml nebule NEB SCH ×6 (03:47→23:10)
[2021-02-08] MEDS: CefTRIAXone 2gm/D5W 50ml BAG 50 ML IV SCH (07:35)
[2021-02-08] MEDS: spironolactone 25 MG tablet NG SCH (07:35)
[2021-02-08] MEDS: naltrexone 50mg tablet NG SCH (07:35)
[2021-02-08] MEDS: thiamine 100mg tablet NG SCH (07:35)
[2021-02-08] MEDS: MULTIVIT-MIN/FERROUS GLUCONATE 9 MG/15 ML LIQUID NG SCH (07:36)
[2021-02-08] MEDS: furosemide 40mg/4ml inj IV SCH ×2 (07:36→20:37)
[2021-02-08] MEDS: heparin, porcine 5000 units/ml vial SQ SCH ×2 (07:36→20:37)
[2021-02-08] MEDS: folic acid 1mg tablet NG SCH (07:36)
[2021-02-08] MEDS: lansoprazole 15mg solutab NG SCH (07:36)
[2021-02-08] MEDS: propranolol 10mg tablet NG SCH ×2 (07:36→20:36)
[2021-02-08] MEDS: lactobacillus rhamnosus 10,000 MMU CELLS/CAPSULE NG SCH ×2 (08:41→20:36)
[2021-02-08] MEDS: K and/or MAG REPLACEMENT MC SCH ×2 (08:41→20:00)
[2021-02-08] MEDS: haloperidol 5mg tablet NG PRN (09:45)
[2021-02-08] MEDS: LORazepam 2 mg/ml vial IV PRN (09:45)
[2021-02-08] MEDS: olanzapine 10mg tablet NG SCH (20:36)
[2021-02-08] MEDS: Melatonin 3mg tablet NG SCH (20:36)
[2021-02-08] MEDS: insulin glargine (Lantus) pen - multi-dose SQ SCH (20:53)
[2021-02-09] MEDS: metoclopramide 5 mg/ml inj IV SCH ×4 (02:00→19:26)
[2021-02-09 03:12] LABS: BASOPHILS # (AUTO) 0.1 X10'3 (0-0.2); BASOPHILS % (AUTO) 1.1 % (0-1); EOSINOPHILS # (AUTO) 0.2 X10'3 (0-0.9); EOSINOPHILS % (AUTO) 1.4 % (0-6); HEMATOCRIT 37.8 % (42.0-52.0); HEMOGLOBIN 12.6 g/dl (14.0-17.9); LYMPHOCYTES # (AUTO) 1.3 X10'3 (1.1-4.8); LYMPHOCYTES % (AUTO) 11.3 % (21-51); MEAN CORPUSCULAR HEMOGLOBIN 32.8 PG (27.0-31.0); MEAN CORPUSCULAR HGB CONC 33.2 g/dL (33.0-36.5); MEAN CORPUSCULAR VOLUME 98.8 FL (78-98); MEAN PLATELET VOLUME 9.6 FL (7.4-10.4); MONOCYTES # (AUTO) 1.6 X10'3 (0-0.9); MONOCYTES % (AUTO) 13.7 % (2-12); NEUTROPHILS # (AUTO) 8.7 X10'3 (1.8-7.7); NEUTROPHILS % (AUTO) 72.5 % (42-75); PLATELET COUNT 226 X10'3 (140-440); RED BLOOD COUNT 3.83 X10'6 (4.70-6.10); RED CELL DISTRIBUTION WIDTH 15.4 % (11.5-14.5)
[2021-02-09 03:23] LABS: ALBUMIN 3.1 G/DL (3.4-5.0); ANION GAP 8 (8-16); BLOOD UREA NITROGEN 35 MG/DL (7-18); BUN/CREATININE RATIO 43.2 (5.4-32.0); CALCIUM 9.9 MG/DL (8.5-10.1); CHLORIDE 102 MMOL/L (99-107); CREATININE 0.81 MG/DL (0.60-1.10); GLUCOSE 131 MG/DL (70-104); MAGNESIUM 2.3 MG/DL (1.5-2.4); PHOSPHORUS 5.2 MG/DL (2.3-4.5); POTASSIUM 4.3 MMOL/L (3.5-5.1); SODIUM 140 MMOL/L (135-145); TOTAL CARBON DIOXIDE 30.5 MMOL/L (24-32); eGFR > 90 ML/MIN
[2021-02-09] MEDS: ipratropium/albuterol 3ml nebule NEB SCH ×6 (03:46→23:21)
[2021-02-09] MEDS: propranolol 10mg tablet NG SCH ×2 (07:53→19:27)
[2021-02-09] MEDS: folic acid 1mg tablet NG SCH (07:55)
[2021-02-09] MEDS: lactobacillus rhamnosus 10,000 MMU CELLS/CAPSULE NG SCH ×2 (07:56→19:27)
[2021-02-09] MEDS: spironolactone 25 MG tablet NG SCH (07:58)
[2021-02-09] MEDS: furosemide 40mg/4ml inj IV SCH ×2 (07:58→19:26)
[2021-02-09] MEDS: heparin, porcine 5000 units/ml vial SQ SCH ×2 (07:59→20:00)
[2021-02-09] MEDS: thiamine 100mg tablet NG SCH (08:00)
[2021-02-09] MEDS: K and/or MAG REPLACEMENT MC SCH ×2 (08:00→20:00)
[2021-02-09] MEDS: MULTIVIT-MIN/FERROUS GLUCONATE 9 MG/15 ML LIQUID NG SCH (08:08)
[2021-02-09] MEDS: lansoprazole 15mg solutab NG SCH (08:08)
[2021-02-09 11:00] VITALS: BP 121/72
--- NOTE | 2021-02-09 15:55 | NUR ---
Patient received Heparin. Will perform thoracentesis 02/10. Attempted to call the floor no answer.
[2021-02-09] MEDS: CefTRIAXone 2gm/D5W 50ml BAG 50 ML IV SCH (16:02)
[2021-02-09] MEDS: naltrexone 50mg tablet NG SCH (16:02)
[2021-02-09 18:43] VITALS: BP 127/74
[2021-02-09] MEDS: insulin glargine (Lantus) pen - multi-dose SQ SCH (22:07)
[2021-02-10] MEDS: Melatonin 3mg tablet NG SCH ×2 (00:19→20:29)
[2021-02-10] MEDS: olanzapine 10mg tablet NG SCH ×2 (00:19→20:30)
[2021-02-10] MEDS: metoclopramide 5 mg/ml inj IV SCH ×4 (02:00→20:30)
[2021-02-10] MEDS: ipratropium/albuterol 3ml nebule NEB SCH ×5 (03:09→20:00)
[2021-02-10 06:00] VITALS: BP 106/55
[2021-02-10] MEDS: lactobacillus rhamnosus 10,000 MMU CELLS/CAPSULE NG SCH ×2 (07:59→20:29)
[2021-02-10] MEDS: CefTRIAXone 2gm/D5W 50ml BAG 50 ML IV SCH (07:59)
[2021-02-10] MEDS: folic acid 1mg tablet NG SCH (07:59)
[2021-02-10] MEDS: thiamine 100mg tablet NG SCH (08:00)
[2021-02-10] MEDS: lansoprazole 15mg solutab NG SCH (08:00)
[2021-02-10] MEDS: naltrexone 50mg tablet NG SCH (08:00)
[2021-02-10] MEDS: spironolactone 25 MG tablet NG SCH (08:00)
[2021-02-10] MEDS: propranolol 10mg tablet NG SCH ×2 (08:01→20:29)
[2021-02-10] MEDS: heparin, porcine 5000 units/ml vial SQ SCH ×2 (08:02→20:30)
[2021-02-10] MEDS: furosemide 40mg/4ml inj IV SCH ×2 (08:02→20:30)
[2021-02-10] MEDS: MULTIVIT-MIN/FERROUS GLUCONATE 9 MG/15 ML LIQUID NG SCH (08:05)
[2021-02-10 08:18] LABS: HEMOGLOBIN 12.4 g/dl (14.0-17.9)
[2021-02-10 08:19] LABS: HEMATOCRIT 36.8 % (42.0-52.0); MEAN CORPUSCULAR HEMOGLOBIN 33.2 PG (27.0-31.0); MEAN CORPUSCULAR HGB CONC 33.7 g/dL (33.0-36.5); MEAN CORPUSCULAR VOLUME 98.6 FL (78-98); MEAN PLATELET VOLUME 9.3 FL (7.4-10.4); PLATELET COUNT 250 X10'3 (140-440); RED BLOOD COUNT 3.73 X10'6 (4.70-6.10); WHITE BLOOD COUNT 10.1 X10'3 (4.5-11.0)
[2021-02-10 08:27] LABS: ALBUMIN 2.8 G/DL (3.4-5.0); ANION GAP 12 (8-16); BLOOD UREA NITROGEN 31 MG/DL (7-18); BUN/CREATININE RATIO 40.8 (5.4-32.0); CALCIUM 9.9 MG/DL (8.5-10.1); CHLORIDE 97 MMOL/L (99-107); CREATININE 0.76 MG/DL (0.60-1.10); GLUCOSE 116 MG/DL (70-104); MAGNESIUM 2.1 MG/DL (1.5-2.4); PHOSPHORUS 4.3 MG/DL (2.3-4.5); POTASSIUM 4.2 MMOL/L (3.5-5.1); PREALBUMIN 18.9 MG/DL (19-36); SODIUM 137 MMOL/L (135-145); TOTAL CARBON DIOXIDE 28.5 MMOL/L (24-32); eGFR > 90 ML/MIN
[2021-02-10 09:45] LABS: PLATELET ESTIMATE NORMAL; TOTAL CELLS COUNTED 100
[2021-02-10] MEDS: LORazepam 2 mg/ml vial IV PRN (10:46)
--- NOTE | 2021-02-10 11:02 | NUR ---
F/u 02/10: Pt NG removed 02/08 advanced to heart healthy/thin diet per TELEVISION ANTENNA INSTALLER recs PO 75-100% past 3 of 4 meals since advancement w/ no dinner PO documentation yesterday. Small BM's only since 02/06; RD d/w RN regarding routine stool softener if MD agreeable receiving routine reglan. Noted -15kg wt loss 02/09 w/ subsequent 13kg wt gain this AM; 02/09 wt likely error. Will continue to monitor for PO trends and additional nutrition intervention needs. Recs: 1) Continue heart healthy/thin diet per TELEVISION ANTENNA INSTALLER/MD recs 2) Monitor for PO trends and ONS needs 3) Routine bowel care 4) weekly wts Addendum: 02/10/21 at [address] Amended: Links added.
[2021-02-10 11:32] VITALS: BP 130/76
[2021-02-10 18:00] VITALS: BP 126/48
--- NOTE | 2021-02-10 18:35 | NUR ---
Problems reprioritized. Patient report given, questions answered & plan of care reviewed with Hu CONTE.
[2021-02-10] MEDS: K and/or MAG REPLACEMENT MC SCH (20:00)
[2021-02-10 22:00] VITALS: BP 122/84
[2021-02-11] MEDS: insulin glargine (Lantus) pen - multi-dose SQ SCH (00:20)
[2021-02-11 02:00] VITALS: BP 133/84
[2021-02-11] MEDS: metoclopramide 5 mg/ml inj IV SCH ×2 (02:00→08:11)
[2021-02-11] MEDS: ipratropium/albuterol 3ml nebule NEB SCH ×5 (02:28→17:01)
[2021-02-11 06:00] VITALS: BP 140/81
[2021-02-11 06:08] LABS: EOSINOPHILS # (AUTO) 0.3 X10'3 (0-0.9); LYMPHOCYTES # (AUTO) 1.6 X10'3 (1.1-4.8); MEAN CORPUSCULAR HEMOGLOBIN 33.4 PG (27.0-31.0); PLATELET COUNT 225 X10'3 (140-440)
[2021-02-11 06:11] LABS: BASOPHILS # (AUTO) 0.2 X10'3 (0-0.2); BASOPHILS % (AUTO) 2.4 % (0-1); EOSINOPHILS % (AUTO) 3.5 % (0-6); HEMATOCRIT 35.3 % (42.0-52.0); LYMPHOCYTES % (AUTO) 17.3 % (21-51); MEAN CORPUSCULAR VOLUME 98.2 FL (78-98); MONOCYTES # (AUTO) 1.4 X10'3 (0-0.9); MONOCYTES % (AUTO) 15.5 % (2-12); NEUTROPHILS # (AUTO) 5.6 X10'3 (1.8-7.7); NEUTROPHILS % (AUTO) 61.3 % (42-75); WHITE BLOOD COUNT 9.2 X10'3 (4.5-11.0)
[2021-02-11 06:26] LABS: ALBUMIN 2.8 G/DL (3.4-5.0); ANION GAP 13 (8-16); BLOOD UREA NITROGEN 30 MG/DL (7-18); BUN/CREATININE RATIO 35.3 (5.4-32.0); CALCIUM 9.8 MG/DL (8.5-10.1); CHLORIDE 95 MMOL/L (99-107); CREATININE 0.85 MG/DL (0.60-1.10); GLUCOSE 101 MG/DL (70-104); MAGNESIUM 2.1 MG/DL (1.5-2.4); PHOSPHORUS 4.9 MG/DL (2.3-4.5); POTASSIUM 3.8 MMOL/L (3.5-5.1); SODIUM 136 MMOL/L (135-145); TOTAL CARBON DIOXIDE 27.9 MMOL/L (24-32); eGFR > 90 ML/MIN
[2021-02-11] MEDS: K and/or MAG REPLACEMENT MC SCH (08:00)
[2021-02-11] MEDS: LORazepam 2 mg/ml vial IV PRN (08:09)
[2021-02-11] MEDS: heparin, porcine 5000 units/ml vial SQ SCH (08:10)
[2021-02-11] MEDS: lansoprazole 15mg solutab NG SCH (08:11)
[2021-02-11] MEDS: lactobacillus rhamnosus 10,000 MMU CELLS/CAPSULE NG SCH (08:11)
[2021-02-11] MEDS: furosemide 40mg/4ml inj IV SCH (08:11)
[2021-02-11] MEDS: propranolol 10mg tablet NG SCH (08:11)
[2021-02-11] MEDS: folic acid 1mg tablet NG SCH (08:16)
[2021-02-11] MEDS: MULTIVIT-MIN/FERROUS GLUCONATE 9 MG/15 ML LIQUID NG SCH (08:17)
[2021-02-11] MEDS: spironolactone 25 MG tablet NG SCH (08:18)
[2021-02-11] MEDS: CefTRIAXone 2gm/D5W 50ml BAG 50 ML IV SCH (08:22)
[2021-02-11] MEDS: thiamine 100mg tablet NG SCH (08:24)
[2021-02-11] MEDS: naltrexone 50mg tablet NG SCH (08:24)
--- NOTE | 2021-02-11 09:45 | NUR ---
removed o2 per md rusus for trial- attempt ra. sats dropped to 84%, placed on 3L for sat of 94%
[2021-02-11] MEDS ORDERED: paliperidone palmitate inj 234 MG/1.5 ML SYRINGE IM SCH (10:00)
--- NOTE | 2021-02-11 10:31 | NUR ---
PAGER ID: [phone] MESSAGE: yossi vazquez 83% RA, 94% on [id number]
--- NOTE | 2021-02-11 10:33 | NUR ---
received call from md mcneill regarding sat's. informed Raven MONROY of MD mcneill's order to send home on home .
--- NOTE | 2021-02-11 10:34 | NUR ---
O2 Sat at rest on room air:_84__% If below 89%: Recovery O2 Sat at rest on __3_LPM:__94_%:___% via_nasal cannula (mask/nasal cannula, etc..) No further documentation is necessary. If O2 Sat did not drop below 89% on room air,ambulate patient on room air. O2 Sat while ambulating on room air:___% Recovery O2 Sat while ambulating on ___LPM:___% No further documentation is necessary. If patient does not drop below 89% while ambulating, he/she does not qualify for home O2.
[2021-02-11 11:00] VITALS: BP 103/62
--- NOTE | 2021-02-11 12:00 | NUR ---
pt decline insulin coverage "i'm headed home."
--- NOTE | 2021-02-11 14:05 | NUR ---
Met with patient in regards to substance use to see if he was interested in treatment and patient declined receiving any help with his substance use.
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
[2021-02-11 16:37] VITALS: BP 98/61
--- NOTE | 2021-02-11 16:45 | NUR ---
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 out via w/c by aid. also provided edu on 3 clinic numbers provided by Raven MONROY and a printed list of AA meeting info in [place]. Addendum: 02/11/21 at 1657 by Corey Saxena RN [facility] site stable
== END 2021-02-11 17:27 | disposition home or self-care (01) | DRG 720 ==
LOC: ER 22:17 → ED HOLD 01-28 04:27 → ICU 2S 01-31 03:28 → PCU 3S 02-08 21:22
PROVIDERS: ADMIT Internal Medicine Pulmonary Disease; ATTEND Internal Medicine Pulmonary Disease
PROC: 5A09357 Assistance with Respiratory Ventilation, Less than 24 Consecutive Hours, Continuous Positive Airway Pressure (ICD-10-PCS; principal; 2021-01-28)
PROC: B32T1ZZ Computerized Tomography (CT Scan) of Left Pulmonary Artery using Low Osmolar Contrast (ICD-10-PCS; 2021-01-28)
PROC: B3201ZZ Computerized Tomography (CT Scan) of Thoracic Aorta using Low Osmolar Contrast (ICD-10-PCS; 2021-01-28)
PROC: B32S1ZZ Computerized Tomography (CT Scan) of Right Pulmonary Artery using Low Osmolar Contrast (ICD-10-PCS; 2021-01-28)
PROC: 5A09457 Assistance with Respiratory Ventilation, 24-96 Consecutive Hours, Continuous Positive Airway Pressure (ICD-10-PCS; 2021-01-31)
PROC: 5A09357 Assistance with Respiratory Ventilation, Less than 24 Consecutive Hours, Continuous Positive Airway Pressure (ICD-10-PCS; 2021-02-02)
PROC: 5A0935A Assistance with Respiratory Ventilation, Less than 24 Consecutive Hours, High Flow/Velocity Cannula (ICD-10-PCS; 2021-02-02)
PROC: 5A09457 Assistance with Respiratory Ventilation, 24-96 Consecutive Hours, Continuous Positive Airway Pressure (ICD-10-PCS; 2021-02-03)
PROC: 5A0945A Assistance with Respiratory Ventilation, 24-96 Consecutive Hours, High Flow/Velocity Cannula (ICD-10-PCS; 2021-02-05)
DX: A40.9 Streptococcal sepsis, unspecified (principal); J96.01 Acute respiratory failure with hypoxia; J13 Pneumonia due to Streptococcus pneumoniae; K92.0 Hematemesis; K72.90 Hepatic failure, unspecified without coma; E72.20 Disorder of urea cycle metabolism, unspecified; D69.59 Other secondary thrombocytopenia; F25.1 Schizoaffective disorder, depressive type; K70.30 Alcoholic cirrhosis of liver without ascites; E83.42 Hypomagnesemia; B19.20 Unspecified viral hepatitis C without hepatic coma; F12.90 Cannabis use, unspecified, uncomplicated; F41.9 Anxiety disorder, unspecified; R16.1 Splenomegaly, not elsewhere classified; E66.9 Obesity, unspecified; G47.30 Sleep apnea, unspecified; F10.239 Alcohol dependence with withdrawal, unspecified; I10 Essential (primary) hypertension; I86.8 Varicose veins of other specified sites; Z20.822 Contact with and (suspected) exposure to COVID-19; Z79.899 Other long term (current) drug therapy; Z80.42 Family history of malignant neoplasm of prostate; Z81.8 Family history of other mental and behavioral disorders; Z59.00 Homelessness unspecified; Z56.0 Unemployment, unspecified; Z68.36 Body mass index [BMI] 36.0-36.9, adult; Z78.1 Physical restraint status
CPT/HCPCS: 36415; 36573; 36600; 71045; 71275; 74176; 80048; 80053; 80202; 80305; 80320; 82140; 82150; 82272; 82803; 82948; 83036; 83605; 83690; 83735; 83880; 84100; 84134; 84145; 84439; 84443; 84484; 85007; 85018; 85025; 85379; 85610; 85730; 86703; 87040; 87077; 87081; 87186; 87635; 92508; 92616; 93005; 93306; 94640; 94660; 94760; 97110; 97116; 97161; 97530; 99285; C9113; C9803; G0378; J0696; J1630; J1644; J1650; J1815; J1940; J1956; J2060; J2270; J2405; J2543; J2765; J3370; J3411; J3475; J7120; Q9967

== ENCOUNTER 2021-03-07 20:51 | Emergency (ER) | payer MEDICAID ==
[~2021-03-07] VITALS: Ht 175.3 cm; Wt 118.2 kg
[~2021-03-07 20:51] MED LIST changes: -CHOL10006 PO; +FURO40TA4 PO; -LACT10SO3 PO; +LACT10SO67 PO; -LORA-269 PO; +NALT50TA PO; -ONDA4TAB6 PO; -SPIR25TA PO; +SPIR25TA5 PO; -THIA100T70 PO
[2021-03-07] MEDS ORDERED: ondansetron/PF 4mg/2ml inj IV ONE (21:05)
[2021-03-07] MEDS ORDERED: folic acid 1mg/0.2ml inj IV ONE (21:05)
[2021-03-07] MEDS ORDERED: thiamine 100mg/ml 2ml inj. IV ONE (21:05)
[2021-03-07] MEDS ORDERED: normal saline 1000ML IV soln IVB ONE (21:05)
[2021-03-07] MEDS ORDERED: famotidine/PF 10 mg/ml inj IV ONE (21:05)
[2021-03-07 21:45] LABS: BASOPHILS % (AUTO) 0.8 % (0-1); EOSINOPHILS # (AUTO) 0.1 X10'3 (0-0.9); EOSINOPHILS % (AUTO) 1.1 % (0-6); HEMATOCRIT 38.4 % (42.0-52.0); HEMOGLOBIN 13.2 g/dl (14.0-17.9); LYMPHOCYTES # (AUTO) 1.4 X10'3 (1.1-4.8); LYMPHOCYTES % (AUTO) 25.7 % (21-51); MEAN CORPUSCULAR HEMOGLOBIN 32.9 PG (27.0-31.0); MEAN CORPUSCULAR HGB CONC 34.3 g/dL (33.0-36.5); MEAN CORPUSCULAR VOLUME 96.1 FL (78-98); MEAN PLATELET VOLUME 6.8 FL (7.4-10.4); MONOCYTES # (AUTO) 0.5 X10'3 (0-0.9); MONOCYTES % (AUTO) 8.8 % (2-12); NEUTROPHILS # (AUTO) 3.4 X10'3 (1.8-7.7); NEUTROPHILS % (AUTO) 63.6 % (42-75); RED CELL DISTRIBUTION WIDTH 16.3 % (11.5-14.5); WHITE BLOOD COUNT 5.3 X10'3 (4.5-11.0)
[2021-03-07 21:57] LABS: ALANINE AMINOTRANSFERASE 78 U/L (12-78); ALBUMIN 3.2 G/DL (3.4-5.0); ALBUMIN/GLOBULIN RATIO 0.5 (1.1-1.5); ALKALINE PHOSPHATASE 249 IU/L (46-116); ANION GAP 13 (8-16); ASPARTATE AMINO TRANSFERASE 151 U/L (10-37); BILIRUBIN,TOTAL 2.4 MG/DL (0.1-1.0); BLOOD UREA NITROGEN 5 MG/DL (7-18); BUN/CREATININE RATIO 7.9 (5.4-32.0); CALCIUM 8.9 MG/DL (8.5-10.1); CHLORIDE 102 MMOL/L (99-107); CREATININE 0.63 MG/DL (0.60-1.10); GLUCOSE 180 MG/DL (70-104); POTASSIUM 3.8 MMOL/L (3.5-5.1); SODIUM 139 MMOL/L (135-145); TOTAL CARBON DIOXIDE 24.3 MMOL/L (24-32); TOTAL PROTEIN 9.9 G/DL (6.4-8.2); eGFR > 90 ML/MIN
[2021-03-07 22:30] LABS: PLATELET COUNT 78 X10'3 (140-440)
[2021-03-07 22:49] VITALS: BP 160/90
[2021-03-07 22:52] LABS: ETHANOL 0.386 GM/DL (0.0-0.010)
== END 2021-03-07 22:52 | disposition home or self-care (01) ==
LOC: ER 20:52
DX: F10.129 Alcohol abuse with intoxication, unspecified (principal); Z20.822 Contact with and (suspected) exposure to COVID-19; R53.1 Weakness; F15.10 Other stimulant abuse, uncomplicated; D69.6 Thrombocytopenia, unspecified; K74.60 Unspecified cirrhosis of liver; Z87.01 Personal history of pneumonia (recurrent); I10 Essential (primary) hypertension; F12.90 Cannabis use, unspecified, uncomplicated; G47.30 Sleep apnea, unspecified; Z86.19 Personal history of other infectious and parasitic diseases; Z79.899 Other long term (current) drug therapy; Z88.8 Allergy status to other drugs, medicaments and biological substances; Z56.0 Unemployment, unspecified; Z59.00 Homelessness unspecified; Z72.89 Other problems related to lifestyle; Y90.8 Blood alcohol level of 240 mg/100 ml or more
CPT/HCPCS: 36415; 71045; 80053; 80320; 85025; 87635; 96374; 96375; 99284; C9803; J2405; J3411; J3490; J7030

== ENCOUNTER 2021-03-18 19:56 | Inpatient (IN) | payer MEDICAID ==
[~2021-03-18] VITALS: Ht 177.8 cm; Wt 130.6 kg
[2021-03-18 20:42] LABS: BASOPHILS # (AUTO) 0.1 X10'3 (0-0.2); BASOPHILS % (AUTO) 1.2 % (0-1); EOSINOPHILS # (AUTO) 0.1 X10'3 (0-0.9); EOSINOPHILS % (AUTO) 0.7 % (0-6); HEMATOCRIT 26.7 % (42.0-52.0); HEMOGLOBIN 9.1 g/dl (14.0-17.9); LYMPHOCYTES # (AUTO) 2.3 X10'3 (1.1-4.8); LYMPHOCYTES % (AUTO) 27.6 % (21-51); MEAN CORPUSCULAR HEMOGLOBIN 33.1 PG (27.0-31.0); MEAN CORPUSCULAR HGB CONC 34.2 g/dL (33.0-36.5); MEAN CORPUSCULAR VOLUME 96.7 FL (78-98); MEAN PLATELET VOLUME 7.4 FL (7.4-10.4); MONOCYTES # (AUTO) 1.1 X10'3 (0-0.9); MONOCYTES % (AUTO) 12.7 % (2-12); NEUTROPHILS # (AUTO) 4.8 X10'3 (1.8-7.7); NEUTROPHILS % (AUTO) 57.8 % (42-75); PLATELET COUNT 129 X10'3 (140-440); RED BLOOD COUNT 2.76 X10'6 (4.70-6.10); RED CELL DISTRIBUTION WIDTH 16.7 % (11.5-14.5); WHITE BLOOD COUNT 8.3 X10'3 (4.5-11.0)
[2021-03-18 21:00] LABS: ALANINE AMINOTRANSFERASE 78 U/L (12-78); ALBUMIN 2.6 G/DL (3.4-5.0); ALBUMIN/GLOBULIN RATIO 0.5 (1.1-1.5); ALKALINE PHOSPHATASE 164 IU/L (46-116); ANION GAP 16 (8-16); ASPARTATE AMINO TRANSFERASE 153 U/L (10-37); BLOOD UREA NITROGEN 10 MG/DL (7-18); BUN/CREATININE RATIO 10.1 (5.4-32.0); CALCIUM 7.5 MG/DL (8.5-10.1); CHLORIDE 99 MMOL/L (99-107); CREATININE 0.99 MG/DL (0.60-1.10); GLUCOSE 182 MG/DL (70-104); LIPASE 250 U/L (73-393); SODIUM 137 MMOL/L (135-145); TOTAL CARBON DIOXIDE 22.3 MMOL/L (24-32); TOTAL PROTEIN 7.4 G/DL (6.4-8.2); eGFR 87 ML/MIN
[2021-03-18] MEDS ORDERED: famotidine/PF 10 mg/ml inj IV ONE (21:10)
[2021-03-18] MEDS ORDERED: pantoprazole 40 MG vial IV ONE (21:10)
--- NOTE | 2021-03-18 21:12 | NUR ---
Patient put in trendelenburg for Low SBP. MD placing central line and arterial line.
[2021-03-18] MEDS ORDERED: NORepinephrine inj. 32 MG in normal saline 250ml IV soln 218 ML IV ONE (21:35)
[2021-03-18] MEDS ORDERED: normal saline 1000ML IV soln IV ONE (21:35)
[2021-03-18] MEDS ORDERED: NORepinephrine 8mg/ 250ml NS 250 ML IV ONE (21:45)
[2021-03-18] MEDS ORDERED: potassium Cl 40 mEq/0.45% sodium chloride IV soln 520ml IV ONE (21:50)
[2021-03-18] MEDS ORDERED: phenobarbital inj 260 MG in normal saline 100ml IV soln 100 ML IV ONE (21:50)
[2021-03-18] MEDS ORDERED: thiamine inj. 100 MG in normal saline 100ml IV soln 99 ML IV ONE (21:50)
[2021-03-18] MEDS ORDERED: magnesium 2GM in 50ml NS 50 ML IV ONE (21:50)
[2021-03-18] MEDS ORDERED: ondansetron/PF 4mg/2ml inj IV ONE (21:50)
[2021-03-18] MEDS: octreotide inj. 1,250 MCG in normal saline 250ml IV soln 243.75 ML IV SCH (22:05)
[2021-03-18] MEDS ORDERED: thiamine inj. 100 MG in normal saline 100ml IV soln 100 ML IV ONE (22:09)
[2021-03-18 22:11] LABS: PARTIAL THROMBOPLASTIN TIME 32 SECONDS (22-32)
[2021-03-18] MEDS ORDERED: magnesium hydroxide 30ml (MOM) UD suspension PO PRN (22:20)
[2021-03-18] MEDS ORDERED: potassium Cl 20 mEq/100mL bag IV ONE (22:45)
[2021-03-18 23:43] VITALS: BP 87/48
[2021-03-19] VITALS (39 sets, daily range): BP systolic 88–160; BP diastolic 53–91
--- NOTE | 2021-03-19 00:14 | NUR ---
Pt has vomited up 500 ml of sharon blood with clots within 2 hrs.
[2021-03-19] MEDS: pantoprazole 40MG/NS 100ML BAG 100 ML IV SCH ×5 (00:32→19:02)
[2021-03-19] MEDS: ondansetron/PF 4mg/2ml inj IV PRN ×2 (02:05→07:43)
[2021-03-19] MEDS ORDERED: NORepinephrine inj. 8 MG in dextrose 5%-water 242 ML IV SCH (02:10)
[2021-03-19] MEDS ORDERED: NORepinephrine 8mg/ 250ml NS 250 ML IV ONE ×2 (02:19→04:32)
[2021-03-19] MEDS ORDERED: NORepinephrine inj. 32 MG in normal saline 250ml IV soln 218 ML IV SCH (02:20)
--- NOTE | 2021-03-19 02:30 | NUR ---
Pt complaint of chest pain of 5/10. Pt tachycardic at 134, vomiting dark red, clotted blood. EKG and troponin series ordered.
[2021-03-19 03:12] LABS: ALANINE AMINOTRANSFERASE 78 U/L (12-78); ALBUMIN 2.6 G/DL (3.4-5.0); ALBUMIN/GLOBULIN RATIO 0.6 (1.1-1.5); ALKALINE PHOSPHATASE 158 IU/L (46-116); ANION GAP 16 (8-16); ASPARTATE AMINO TRANSFERASE 154 U/L (10-37); BILIRUBIN,TOTAL 2.3 MG/DL (0.1-1.0); BLOOD UREA NITROGEN 12 MG/DL (7-18); BUN/CREATININE RATIO 13.3 (5.4-32.0); CALCIUM 6.9 MG/DL (8.5-10.1); CHLORIDE 104 MMOL/L (99-107); GLUCOSE 159 MG/DL (70-104); POTASSIUM 3.9 MMOL/L (3.5-5.1); SODIUM 139 MMOL/L (135-145); TOTAL CARBON DIOXIDE 19.4 MMOL/L (24-32); TOTAL PROTEIN 7.3 G/DL (6.4-8.2); eGFR > 90 ML/MIN
--- NOTE | 2021-03-19 04:00 | NUR ---
Pt HR 140, and has visible tremors. New order from information systems administrator territory representative for Ativan 2 mg Q4hrs to control ETOH withdrawl symptoms.
[2021-03-19] MEDS: LORazepam 2 mg/ml vial IV PRN ×3 (04:19→21:55)
[2021-03-19] MEDS: NORepinephrine 8mg/ 250ml NS 250 ML IV SCH ×2 (04:34→06:42)
[2021-03-19 05:38] LABS: BASOPHILS # (AUTO) 0.1 X10'3 (0-0.2); BASOPHILS % (AUTO) 0.6 % (0-1); EOSINOPHILS % (AUTO) 0 % (0-6); HEMATOCRIT 28.8 % (42.0-52.0); HEMOGLOBIN 9.7 g/dl (14.0-17.9); LYMPHOCYTES # (AUTO) 1.2 X10'3 (1.1-4.8); LYMPHOCYTES % (AUTO) 9.6 % (21-51); MEAN CORPUSCULAR HEMOGLOBIN 31.9 PG (27.0-31.0); MEAN CORPUSCULAR HGB CONC 33.6 g/dL (33.0-36.5); MEAN CORPUSCULAR VOLUME 94.9 FL (78-98); MEAN PLATELET VOLUME 7.7 FL (7.4-10.4); MONOCYTES # (AUTO) 1.5 X10'3 (0-0.9); MONOCYTES % (AUTO) 12.3 % (2-12); NEUTROPHILS # (AUTO) 9.4 X10'3 (1.8-7.7); NEUTROPHILS % (AUTO) 77.5 % (42-75); PLATELET COUNT 187 X10'3 (140-440); RED BLOOD COUNT 3.04 X10'6 (4.70-6.10); RED CELL DISTRIBUTION WIDTH 17.5 % (11.5-14.5); WHITE BLOOD COUNT 12.2 X10'3 (4.5-11.0)
[2021-03-19] MEDS ORDERED: CHOL500050 PO (06:17)
[2021-03-19] MEDS ORDERED: GABA300C PO (06:17)
--- NOTE | 2021-03-19 06:37 | NUR ---
art line zeroed. We will monitor.
--- NOTE | 2021-03-19 06:37 | NUR ---
patient received on sandostatin 25mcg/hr, norepi 0.9mcg/kg./min, protonix 8mg/hr and phenobarbital 300ml/hour.
[2021-03-19] MEDS ORDERED: NORepinephrine 32 MG in Normal Saline 250ml IV soln IV SCH (07:45)
[2021-03-19 08:34] LABS: HEMOGLOBIN 9.5 g/dl (14.0-17.9); MEAN CORPUSCULAR HEMOGLOBIN 32.3 PG (27.0-31.0); MEAN CORPUSCULAR VOLUME 94.9 FL (78-98); MEAN PLATELET VOLUME 7.5 FL (7.4-10.4); PLATELET COUNT 196 X10'3 (140-440); RED BLOOD COUNT 2.96 X10'6 (4.70-6.10); RED CELL DISTRIBUTION WIDTH 17.6 % (11.5-14.5); WHITE BLOOD COUNT 13.8 X10'3 (4.5-11.0)
[2021-03-19] MEDS: CefTRIAXone/D5W-Rocephin 1gm 50 ML IV SCH (09:47)
[2021-03-19] MEDS ORDERED: albumin (Human) 5% 250ml 250 ML IV ONE (10:20)
[2021-03-19] MEDS ORDERED: LORazepam 2 mg/ml vial IV PRN (10:55)
[2021-03-19] MEDS ORDERED: haloperidol lactate 5mg/ml inj IM PRN (10:55)
[2021-03-19] MEDS ORDERED: fentaNYL/PF 50MCG/1 ML 2ML syringe ONE (11:36)
[2021-03-19] MEDS ORDERED: MIDAZolam 1 MG/ML 5ML VIAL ONE (11:36)
[2021-03-19] MEDS ORDERED: LIDOcaine Viscous 15ml cup ONE (11:37)
[2021-03-19] MEDS ORDERED: diphenhydrAMINE 50 mg/ml inj ONE (12:14)
[2021-03-19] MEDS ORDERED: thiamine 100mg/ml 2ml inj. IV SCH (13:00)
[2021-03-19] MEDS: folic acid 1mg/0.2ml inj IV SCH (13:19)
[2021-03-19] MEDS: thiamine inj. 200 MG in normal saline 100ml IV soln 100 ML IV SCH ×2 (14:07→20:28)
--- NOTE | 2021-03-19 15:36 | NUR ---
Patient admitted this am approx 0715. HR 130's, hypotensive on norepinephrine drip, H/H stable. MD notified on condition. Orders received. 1200: Upper EGD performed at bedside, 6 bands placed per GI MD. 2 units FFP given, 500 cc 5% Albumin given per order. 1500: HR 120's, SBP 130-140's. Norepi drip off at this time. Patient continues to have moderate dark, maroon colored stools. Oriented but drowsy, being given prn lorazepam for etoh withdrawal symptoms.
[2021-03-19 16:03] LABS: HEMOGLOBIN 7.4 g/dl (14.0-17.9); MEAN CORPUSCULAR HEMOGLOBIN 32.7 PG (27.0-31.0); MEAN CORPUSCULAR HGB CONC 34.7 g/dL (33.0-36.5); MEAN CORPUSCULAR VOLUME 94.1 FL (78-98); PLATELET COUNT 81 X10'3 (140-440); RED BLOOD COUNT 2.26 X10'6 (4.70-6.10)
[2021-03-19 16:05] LABS: HEMATOCRIT 21.3 % (42.0-52.0)
[2021-03-19 16:44] LABS: PARTIAL THROMBOPLASTIN TIME 32 SECONDS (22-32)
[2021-03-19] MEDS ORDERED: lactulose 20gm/30ml cup RC ONE (17:40)
--- NOTE | 2021-03-19 18:30 | NUR ---
Patient in room ICU 2043. I have received report from Nicanor CONTE and had the opportunity to ask questions and assume patient care.
[2021-03-19 21:04] LABS: HEMATOCRIT 24.8 % (42.0-52.0); HEMOGLOBIN 8.6 g/dl (14.0-17.9); MEAN CORPUSCULAR HEMOGLOBIN 32.4 PG (27.0-31.0); MEAN CORPUSCULAR HGB CONC 34.7 g/dL (33.0-36.5); MEAN CORPUSCULAR VOLUME 93.3 FL (78-98); PLATELET COUNT 73 X10'3 (140-440); RED BLOOD COUNT 2.65 X10'6 (4.70-6.10); RED CELL DISTRIBUTION WIDTH 16.9 % (11.5-14.5)
[2021-03-20] VITALS (24 sets, daily range): BP systolic 114–153; BP diastolic 64–88
[2021-03-20 00:37] LABS: HEMATOCRIT 25.2 % (42.0-52.0); HEMOGLOBIN 8.7 g/dl (14.0-17.9); MEAN CORPUSCULAR HEMOGLOBIN 32.6 PG (27.0-31.0); MEAN CORPUSCULAR HGB CONC 34.6 g/dL (33.0-36.5); MEAN CORPUSCULAR VOLUME 94.1 FL (78-98); MEAN PLATELET VOLUME 7.2 FL (7.4-10.4); PLATELET COUNT 66 X10'3 (140-440); RED BLOOD COUNT 2.68 X10'6 (4.70-6.10); RED CELL DISTRIBUTION WIDTH 16.9 % (11.5-14.5); WHITE BLOOD COUNT 4.3 X10'3 (4.5-11.0)
[2021-03-20] MEDS: pantoprazole 40MG/NS 100ML BAG 100 ML IV SCH ×5 (00:45→21:15)
[2021-03-20 03:09] LABS: EOSINOPHILS % (AUTO) 0.8 % (0-6); HEMATOCRIT 24.4 % (42.0-52.0); HEMOGLOBIN 8.6 g/dl (14.0-17.9); LYMPHOCYTES # (AUTO) 0.9 X10'3 (1.1-4.8); LYMPHOCYTES % (AUTO) 22.1 % (21-51); MEAN CORPUSCULAR HEMOGLOBIN 33.2 PG (27.0-31.0); MEAN CORPUSCULAR HGB CONC 35.2 g/dL (33.0-36.5); MEAN CORPUSCULAR VOLUME 94.2 FL (78-98); MEAN PLATELET VOLUME 7.6 FL (7.4-10.4); MONOCYTES # (AUTO) 0.6 X10'3 (0-0.9); MONOCYTES % (AUTO) 14.4 % (2-12); NEUTROPHILS # (AUTO) 2.6 X10'3 (1.8-7.7); NEUTROPHILS % (AUTO) 61.7 % (42-75); PLATELET COUNT 69 X10'3 (140-440); RED CELL DISTRIBUTION WIDTH 17.2 % (11.5-14.5); WHITE BLOOD COUNT 4.3 X10'3 (4.5-11.0)
[2021-03-20 03:26] LABS: ALANINE AMINOTRANSFERASE 69 U/L (12-78); ALBUMIN 2.6 G/DL (3.4-5.0); ALBUMIN/GLOBULIN RATIO 0.7 (1.1-1.5); ALKALINE PHOSPHATASE 113 IU/L (46-116); AMYLASE 45 U/L (25-115); ANION GAP 9 (8-16); ASPARTATE AMINO TRANSFERASE 137 U/L (10-37); BILIRUBIN,TOTAL 3.2 MG/DL (0.1-1.0); BLOOD UREA NITROGEN 11 MG/DL (7-18); BUN/CREATININE RATIO 15.5 (5.4-32.0); CALCIUM 7.4 MG/DL (8.5-10.1); CHLORIDE 106 MMOL/L (99-107); CREATININE 0.71 MG/DL (0.60-1.10); GLUCOSE 131 MG/DL (70-104); LIPASE 141 U/L (73-393); MAGNESIUM 1.8 MG/DL (1.5-2.4); PHOSPHORUS 1.9 MG/DL (2.3-4.5); POTASSIUM 3.5 MMOL/L (3.5-5.1); SODIUM 141 MMOL/L (135-145); TOTAL CARBON DIOXIDE 26.1 MMOL/L (24-32); TOTAL PROTEIN 6.6 G/DL (6.4-8.2); eGFR > 90 ML/MIN
[2021-03-20 04:24] LABS: HEMATOCRIT 24.1 % (42.0-52.0); HEMOGLOBIN 8.4 g/dl (14.0-17.9); MEAN CORPUSCULAR HEMOGLOBIN 32.6 PG (27.0-31.0); MEAN CORPUSCULAR VOLUME 93.1 FL (78-98); MEAN PLATELET VOLUME 7.1 FL (7.4-10.4); PLATELET COUNT 65 X10'3 (140-440); RED BLOOD COUNT 2.59 X10'6 (4.70-6.10); WHITE BLOOD COUNT 4.2 X10'3 (4.5-11.0)
--- NOTE | 2021-03-20 06:28 | NUR ---
Problems reprioritized. Patient report given, questions answered & plan of care reviewed with Petra CONTE.
--- NOTE | 2021-03-20 07:00 | NUR ---
Patient in room ICU 2043. I have received report from Elin CONTE and had the opportunity to ask questions and assume patient care.
--- NOTE | 2021-03-20 07:54 | NUR ---
Initial: Pt admitted w/ vomiting blood after drinking per EMR, also w/ alcoholic cirrhosis and sepsis. Pt continues w/ vomiting blood and melena per MD note. Currently NPO, LBM 03/19. Limited nutrition interventions available at this time given pt condition and diet order. Will continue to monitor and make recommendations as appropriate. Recs: 1. Advance to Regular diet as medically indicated 2. Monitor need for additional protein pending PO 3. Bowel care per rx 4. Scaled wt this admit, subsequent weekly wts Addendum: 03/20/21 at [address] Amended: Links added.
[2021-03-20] MEDS: multivitamins, therapeutics tablet PO SCH (08:25)
[2021-03-20] MEDS: CefTRIAXone/D5W-Rocephin 1gm 50 ML IV SCH (08:26)
[2021-03-20] MEDS: folic acid 1mg/0.2ml inj IV SCH (08:26)
[2021-03-20] MEDS: LORazepam 2 mg/ml vial IV PRN ×2 (08:31→16:32)
[2021-03-20] MEDS: thiamine inj. 200 MG in normal saline 100ml IV soln 100 ML IV SCH ×3 (09:15→21:15)
[2021-03-20 10:47] LABS: HEMATOCRIT 24.4 % (42.0-52.0); HEMOGLOBIN 8.5 g/dl (14.0-17.9); MEAN CORPUSCULAR HEMOGLOBIN 32.6 PG (27.0-31.0); MEAN CORPUSCULAR HGB CONC 34.8 g/dL (33.0-36.5); MEAN CORPUSCULAR VOLUME 93.5 FL (78-98); MEAN PLATELET VOLUME 7.2 FL (7.4-10.4); PLATELET COUNT 68 X10'3 (140-440); RED BLOOD COUNT 2.61 X10'6 (4.70-6.10); RED CELL DISTRIBUTION WIDTH 17.2 % (11.5-14.5); WHITE BLOOD COUNT 3.9 X10'3 (4.5-11.0)
[2021-03-20] MEDS: lactulose 20gm/30ml cup PO SCH ×2 (12:47→21:12)
[2021-03-20] MEDS ORDERED: NORMAL SALINE IV ONE (13:15)
[2021-03-20] MEDS ORDERED: POTASSIUM PHOSPHATE IV ONE (13:15)
--- NOTE | 2021-03-20 18:22 | NUR ---
Problems reprioritized. Patient report given, questions answered & plan of care reviewed with Gwendolyn CONTE.
--- NOTE | 2021-03-20 19:06 | NUR ---
Pt is sleeping at this time, arousal to stimuli. No signs of any discomfort noted. Iv medication drips infusing well. Dinh and rectal tube to gravity.
[2021-03-20] MEDS: octreotide inj. 1,250 MCG in normal saline 250ml IV soln 243.75 ML IV SCH (21:57)
[2021-03-21] VITALS (17 sets, daily range): BP systolic 109–167; BP diastolic 72–94
--- NOTE | 2021-03-21 00:31 | NUR ---
AM care done, leakage noted around the rectal tube, black liquid stool noted; tube inflated with 10 ml of water. Bilateral lower extremities elevated on pillow. call light placed within reach. Pt denied any discomfort.
[2021-03-21] MEDS: pantoprazole 40MG/NS 100ML BAG 100 ML IV SCH (02:37)
[2021-03-21 02:42] LABS: HEMATOCRIT 26.2 % (42.0-52.0); MEAN PLATELET VOLUME 7.4 FL (7.4-10.4); MONOCYTES # (AUTO) 0.7 X10'3 (0-0.9); WHITE BLOOD COUNT 5.1 X10'3 (4.5-11.0)
[2021-03-21 02:43] LABS: BASOPHILS # (AUTO) 0.1 X10'3 (0-0.2); BASOPHILS % (AUTO) 1.3 % (0-1); EOSINOPHILS # (AUTO) 0.2 X10'3 (0-0.9); EOSINOPHILS % (AUTO) 3.1 % (0-6); HEMOGLOBIN 8.8 g/dl (14.0-17.9); LYMPHOCYTES % (AUTO) 20.1 % (21-51); MEAN CORPUSCULAR HEMOGLOBIN 32.2 PG (27.0-31.0); MEAN CORPUSCULAR HGB CONC 33.7 g/dL (33.0-36.5); MEAN CORPUSCULAR VOLUME 95.5 FL (78-98); MONOCYTES % (AUTO) 14.1 % (2-12); NEUTROPHILS # (AUTO) 3.1 X10'3 (1.8-7.7); NEUTROPHILS % (AUTO) 61.4 % (42-75); PLATELET COUNT 81 X10'3 (140-440); RED BLOOD COUNT 2.74 X10'6 (4.70-6.10); RED CELL DISTRIBUTION WIDTH 16.9 % (11.5-14.5)
[2021-03-21 02:52] LABS: ALANINE AMINOTRANSFERASE 73 U/L (12-78); ALBUMIN 2.6 G/DL (3.4-5.0); ALBUMIN/GLOBULIN RATIO 0.6 (1.1-1.5); ALKALINE PHOSPHATASE 128 IU/L (46-116); AMYLASE 42 U/L (25-115); ANION GAP 6 (8-16); ASPARTATE AMINO TRANSFERASE 128 U/L (10-37); BLOOD UREA NITROGEN 6 MG/DL (7-18); BUN/CREATININE RATIO 8.2 (5.4-32.0); CALCIUM 7.8 MG/DL (8.5-10.1); CHLORIDE 105 MMOL/L (99-107); CREATININE 0.73 MG/DL (0.60-1.10); GLUCOSE 113 MG/DL (70-104); LIPASE 152 U/L (73-393); MAGNESIUM 1.8 MG/DL (1.5-2.4); PHOSPHORUS 3.2 MG/DL (2.3-4.5); POTASSIUM 3.8 MMOL/L (3.5-5.1); SODIUM 137 MMOL/L (135-145); TOTAL CARBON DIOXIDE 26.1 MMOL/L (24-32); TOTAL PROTEIN 6.8 G/DL (6.4-8.2); eGFR > 90 ML/MIN
--- NOTE | 2021-03-21 04:48 | NUR ---
Pt is in stable condition. resting comfortably, no complaint of any discomfort. IV drips infusing well. Call light within reach.
--- NOTE | 2021-03-21 06:35 | NUR ---
Patient in room ICU 2043. I have received report from Gwendolyn CONTE and had the opportunity to ask questions and assume patient care.
[2021-03-21] MEDS ORDERED: metoprolol tartrate 25mg tablet PO SCH (07:15)
[2021-03-21] MEDS: CefTRIAXone/D5W-Rocephin 1gm 50 ML IV SCH (07:55)
[2021-03-21] MEDS: thiamine inj. 200 MG in normal saline 100ml IV soln 100 ML IV SCH ×3 (07:55→20:27)
[2021-03-21] MEDS: multivitamins, therapeutics tablet PO SCH (07:56)
[2021-03-21] MEDS: pantoprazole 40 MG vial IV SCH ×2 (07:56→20:26)
[2021-03-21] MEDS: lactulose 20gm/30ml cup PO SCH ×3 (07:56→20:26)
[2021-03-21] MEDS: folic acid 1mg/0.2ml inj IV SCH (07:56)
[2021-03-21 08:53] LABS: HEMOGLOBIN 8.9 g/dl (14.0-17.9); MEAN CORPUSCULAR HEMOGLOBIN 32.8 PG (27.0-31.0); MEAN CORPUSCULAR HGB CONC 34.4 g/dL (33.0-36.5); MEAN CORPUSCULAR VOLUME 95.4 FL (78-98); MEAN PLATELET VOLUME 7.4 FL (7.4-10.4); PLATELET COUNT 85 X10'3 (140-440); RED BLOOD COUNT 2.72 X10'6 (4.70-6.10)
--- NOTE | 2021-03-21 09:00 | NUR ---
Deal by to round on patient, ordered picc D/c central line and art lines in the groin. wean down the sandosatin. advance to full lipuid diet, stop protonix gtt and change to 40mg bid. patient can transfer to pcu with tele
--- NOTE | 2021-03-21 09:38 | NUR ---
At patients request i called jonah tiwari [phone] left a message for a return call, he would like me to inform jonah that he is here
--- NOTE | 2021-03-21 11:01 | NUR ---
left femoral art line D/C canula intact no bleeding will monitor site
--- NOTE | 2021-03-21 11:23 | NUR ---
Problems reprioritized. Patient report given, questions answered & plan of care reviewed with Phuong CONTE on pcu, updated her on lines and drips.
--- NOTE | 2021-03-21 12:06 | NUR ---
Patient oriented to room and call light. He is resting comfortably and in no acute distress. Needs met at this time.
[2021-03-21] MEDS ORDERED: paliperidone palmitate inj 234 MG/1.5 ML SYRINGE IM SCH (14:50)
[2021-03-21] MEDS: gabapentin 300mg capsule PO SCH ×2 (16:30→23:40)
[2021-03-21] MEDS: LORazepam 2 mg/ml vial IV PRN (16:30)
[2021-03-21 16:43] LABS: HEMOGLOBIN 9.1 g/dl (14.0-17.9); MEAN CORPUSCULAR HEMOGLOBIN 32.4 PG (27.0-31.0); MEAN CORPUSCULAR HGB CONC 33.7 g/dL (33.0-36.5); MEAN PLATELET VOLUME 7.3 FL (7.4-10.4); PLATELET COUNT 90 X10'3 (140-440); RED BLOOD COUNT 2.81 X10'6 (4.70-6.10); RED CELL DISTRIBUTION WIDTH 16.5 % (11.5-14.5); WHITE BLOOD COUNT 4.9 X10'3 (4.5-11.0)
--- NOTE | 2021-03-21 18:06 | NUR ---
Student documentation: I have reviewed and agree with all interventions, assessments performed and documented by Livia CONTE. Student Medication Administration: For this medication-pass time frame, all medication were reviewed, dispensed, administered and documented per hospital policy by Livia CONTE.
--- NOTE | 2021-03-21 18:16 | NUR ---
Patient in room PCU 3024B. I have received report from DG Meraz and had the opportunity to ask questions and assume patient care.
--- NOTE | 2021-03-21 18:17 | NUR ---
Problems reprioritized. Patient report given, questions answered & plan of care reviewed with Radha CONTE. Patient resting in bed in no acute distress.
[2021-03-22 02:00] VITALS: BP 124/81
[2021-03-22] MEDS: LORazepam 2 mg/ml vial IV PRN ×2 (03:22→09:37)
[2021-03-22 06:00] VITALS: BP 137/82
[2021-03-22 06:30] LABS: BASOPHILS # (AUTO) 0.1 X10'3 (0-0.2); BASOPHILS % (AUTO) 1.2 % (0-1); EOSINOPHILS # (AUTO) 0.2 X10'3 (0-0.9); EOSINOPHILS % (AUTO) 3.7 % (0-6); HEMATOCRIT 28.3 % (42.0-52.0); HEMOGLOBIN 9.7 g/dl (14.0-17.9); LYMPHOCYTES # (AUTO) 1.1 X10'3 (1.1-4.8); LYMPHOCYTES % (AUTO) 19.8 % (21-51); MEAN CORPUSCULAR HEMOGLOBIN 32.9 PG (27.0-31.0); MEAN CORPUSCULAR HGB CONC 34.2 g/dL (33.0-36.5); MEAN CORPUSCULAR VOLUME 96.2 FL (78-98); MEAN PLATELET VOLUME 7.5 FL (7.4-10.4); MONOCYTES # (AUTO) 0.7 X10'3 (0-0.9); MONOCYTES % (AUTO) 13.5 % (2-12); NEUTROPHILS # (AUTO) 3.3 X10'3 (1.8-7.7); NEUTROPHILS % (AUTO) 61.8 % (42-75); PLATELET COUNT 94 X10'3 (140-440); RED BLOOD COUNT 2.94 X10'6 (4.70-6.10); WHITE BLOOD COUNT 5.3 X10'3 (4.5-11.0)
[2021-03-22 06:36] LABS: ALANINE AMINOTRANSFERASE 62 U/L (12-78); ALBUMIN 2.6 G/DL (3.4-5.0); ALBUMIN/GLOBULIN RATIO 0.6 (1.1-1.5); ALKALINE PHOSPHATASE 142 IU/L (46-116); AMYLASE 51 U/L (25-115); ANION GAP 12 (8-16); ASPARTATE AMINO TRANSFERASE 105 U/L (10-37); BILIRUBIN,TOTAL 2.8 MG/DL (0.1-1.0); BLOOD UREA NITROGEN 6 MG/DL (7-18); BUN/CREATININE RATIO 8.1 (5.4-32.0); CALCIUM 8.3 MG/DL (8.5-10.1); CHLORIDE 102 MMOL/L (99-107); CREATININE 0.74 MG/DL (0.60-1.10); GLUCOSE 110 MG/DL (70-104); LIPASE 218 U/L (73-393); MAGNESIUM 1.7 MG/DL (1.5-2.4); PHOSPHORUS 3.5 MG/DL (2.3-4.5); POTASSIUM 3.4 MMOL/L (3.5-5.1); SODIUM 137 MMOL/L (135-145); TOTAL CARBON DIOXIDE 23.1 MMOL/L (24-32); TOTAL PROTEIN 6.9 G/DL (6.4-8.2); eGFR > 90 ML/MIN
--- NOTE | 2021-03-22 06:50 | NUR ---
Problems reprioritized. Patient report given, questions answered & plan of care reviewed with DG Bhakta.
[2021-03-22] MEDS: metoprolol succinate 25mg (24-HOUR) SR. Tablet PO SCH (08:00)
[2021-03-22] MEDS: folic acid 1mg/0.2ml inj IV SCH (08:00)
[2021-03-22] MEDS: lactulose 20gm/30ml cup PO SCH ×2 (09:10→20:29)
[2021-03-22] MEDS: gabapentin 300mg capsule PO SCH ×2 (09:10→16:53)
[2021-03-22] MEDS: multivitamins, therapeutics tablet PO SCH (09:10)
[2021-03-22] MEDS: pantoprazole 40 MG vial IV SCH (09:10)
[2021-03-22] MEDS: thiamine inj. 200 MG in normal saline 100ml IV soln 100 ML IV SCH (09:11)
[2021-03-22] MEDS: CefTRIAXone/D5W-Rocephin 1gm 50 ML IV SCH (09:11)
[2021-03-22] MEDS: spironolactone 25 MG tablet PO SCH (09:11)
[2021-03-22 11:00] VITALS: BP 151/79
[2021-03-22] MEDS ORDERED: LORazepam 2 mg/ml vial IV PRN (13:20)
[2021-03-22] MEDS: ondansetron/PF 4mg/2ml inj IV PRN (13:31)
[2021-03-22 15:00] VITALS: BP 105/69
[2021-03-22 18:00] VITALS: BP 125/71
--- NOTE | 2021-03-22 18:12 | NUR ---
Problems reprioritized. Patient report given, questions answered & plan of care reviewed with Nika.
--- NOTE | 2021-03-22 18:30 | NUR ---
Patient in room PCU 3024. I have received report from Livia CONTE and had the opportunity to ask questions and assume patient care.
[2021-03-22] MEDS ORDERED: potassium CL 10mEq/100ml bag 100 ML IV PRN (20:15)
[2021-03-22] MEDS ORDERED: magnesium Cl slow-release 64mg tablet PO PRN (20:15)
[2021-03-22] MEDS ORDERED: potassium Cl 20 mEq SR tablet PO PRN (20:15)
[2021-03-22] MEDS ORDERED: magnesium 2GM in 50ml NS 50 ML IV PRN (20:15)
[2021-03-22] MEDS ORDERED: magnesium 4gm in 100ml NS 100 ML IV PRN (20:15)
[2021-03-22] MEDS: pantoprazole 40mg Tablet.DR PO SCH (20:29)
[2021-03-22] MEDS: lactobacillus rhamnosus 10,000 MMU CELLS/CAPSULE PO SCH (20:29)
[2021-03-22] MEDS: potassium Cl 20 mEq SR tablet PO PRN (21:43)
[2021-03-22 22:00] VITALS: BP 107/71
[2021-03-23] MEDS: gabapentin 300mg capsule PO SCH ×2 (00:39→08:21)
[2021-03-23 02:00] VITALS: BP 112/60
[2021-03-23] MEDS: potassium Cl 20 mEq SR tablet PO PRN (06:01)
[2021-03-23 06:16] LABS: BASOPHILS # (AUTO) 0.1 X10'3 (0-0.2); EOSINOPHILS # (AUTO) 0.3 X10'3 (0-0.9); EOSINOPHILS % (AUTO) 3.4 % (0-6); HEMATOCRIT 29.2 % (42.0-52.0); HEMOGLOBIN 10.1 g/dl (14.0-17.9); LYMPHOCYTES # (AUTO) 1.2 X10'3 (1.1-4.8); LYMPHOCYTES % (AUTO) 15.4 % (21-51); MEAN CORPUSCULAR HEMOGLOBIN 33.3 PG (27.0-31.0); MEAN CORPUSCULAR HGB CONC 34.5 g/dL (33.0-36.5); MEAN CORPUSCULAR VOLUME 96.3 FL (78-98); MEAN PLATELET VOLUME 7.7 FL (7.4-10.4); MONOCYTES # (AUTO) 1.2 X10'3 (0-0.9); MONOCYTES % (AUTO) 15.8 % (2-12); NEUTROPHILS % (AUTO) 64.4 % (42-75); PLATELET COUNT 121 X10'3 (140-440); RED BLOOD COUNT 3.03 X10'6 (4.70-6.10); WHITE BLOOD COUNT 7.7 X10'3 (4.5-11.0)
[2021-03-23 06:20] LABS: ALANINE AMINOTRANSFERASE 72 U/L (12-78); ALBUMIN 2.9 G/DL (3.4-5.0); ALBUMIN/GLOBULIN RATIO 0.6 (1.1-1.5); ALKALINE PHOSPHATASE 174 IU/L (46-116); AMYLASE 49 U/L (25-115); ANION GAP 10 (8-16); ASPARTATE AMINO TRANSFERASE 98 U/L (10-37); BILIRUBIN,TOTAL 3.2 MG/DL (0.1-1.0); BLOOD UREA NITROGEN 4 MG/DL (7-18); BUN/CREATININE RATIO 5.6 (5.4-32.0); CALCIUM 8.6 MG/DL (8.5-10.1); CHLORIDE 103 MMOL/L (99-107); CREATININE 0.71 MG/DL (0.60-1.10); GLUCOSE 98 MG/DL (70-104); LIPASE 196 U/L (73-393); MAGNESIUM 1.8 MG/DL (1.5-2.4); PHOSPHORUS 4.5 MG/DL (2.3-4.5); POTASSIUM 4.1 MMOL/L (3.5-5.1); SODIUM 136 MMOL/L (135-145); TOTAL CARBON DIOXIDE 23.2 MMOL/L (24-32); TOTAL PROTEIN 7.5 G/DL (6.4-8.2); eGFR > 90 ML/MIN
--- NOTE | 2021-03-23 06:54 | NUR ---
Problems reprioritized. Patient report given, questions answered & plan of care reviewed with Estephania CONTE.
--- NOTE | 2021-03-23 06:55 | NUR ---
Patient in room PCU 3024. I have received report from Nika CONTE and had the opportunity to ask questions and assume patient care. Pt. safe and stable at time of report
[2021-03-23 07:11] LABS: ANISOCYTOSIS 1+; PLATELET ESTIMATE DECREASED; TOTAL CELLS COUNTED 100
[2021-03-23] MEDS: K and/or MAG REPLACEMENT MC SCH ×2 (08:00→08:22)
[2021-03-23] MEDS: CefTRIAXone/D5W-Rocephin 1gm 50 ML IV SCH (08:15)
[2021-03-23] MEDS: lactulose 20gm/30ml cup PO SCH (08:16)
[2021-03-23] MEDS: spironolactone 25 MG tablet PO SCH (08:17)
[2021-03-23] MEDS: metoprolol succinate 25mg (24-HOUR) SR. Tablet PO SCH (08:17)
[2021-03-23] MEDS: lactobacillus rhamnosus 10,000 MMU CELLS/CAPSULE PO SCH (08:21)
[2021-03-23] MEDS: multivitamins, therapeutics tablet PO SCH (08:21)
[2021-03-23] MEDS: pantoprazole 40mg Tablet.DR PO SCH (08:21)
[2021-03-23] MEDS ORDERED: MULT-620 PO (10:40)
[2021-03-23] MEDS ORDERED: PANT40TA54 PO (10:40)
--- NOTE | 2021-03-23 10:45 | NUR ---
Reassessment: Pt currently on Full liquid diet since 03/21 w/ mostly 0% intake though had 100% of dinner last night. Per MD note, pt has no abd pain, nausea/vomiting and Hgb is stable. TC to RN to recommend advancing to Regular diet if MD agreeable Pt w/ rectal tube, documented w/ 350ml output 03/22, though tube to be removed soon per RN. Will continue to monitor PO trends and need for additional protein upon diet advancement. Recs: 1. Advance to Regular diet as medically indicated 2. Monitor need for additional protein upon diet advancement 3. Bowel care per rx 4. Scaled wt this admit, subsequent weekly wts Addendum: 03/23/21 at [address] Amended: Links added.
[2021-03-23 11:00] VITALS: BP 125/74
--- NOTE | 2021-03-23 12:34 | NUR ---
Pt. is stable for discharge per MD orders all discharge instructions reviewed with patient and all questions answered. Pt. refused all meds prior to discharge due to not wanting to wait any longer. Dr. travis. PIV and PICC line removed with pressure dressing intact; tele monitor discontinued; Belongings collected and sent with patients; Pt. left via wheelchair [facility]
== END 2021-03-23 12:34 | disposition home or self-care (01) | DRG 720 ==
LOC: ER 19:57 → ED HOLD 22:20 → ICU 2S 03-19 07:17 → PCU 3S 03-21 11:37
PROVIDERS: ADMIT Internal Medicine; ATTEND Internal Medicine
PROC: 06HY33Z Insertion of Infusion Device into Lower Vein, Percutaneous Approach (ICD-10-PCS; 2021-03-18)
PROC: 04HY32Z Insertion of Monitoring Device into Lower Artery, Percutaneous Approach (ICD-10-PCS; 2021-03-18)
PROC: 4A133B1 Monitoring of Arterial Pressure, Peripheral, Percutaneous Approach (ICD-10-PCS; 2021-03-18)
PROC: 4A133J1 Monitoring of Arterial Pulse, Peripheral, Percutaneous Approach (ICD-10-PCS; 2021-03-18)
PROC: 30233N1 Transfusion of Nonautologous Red Blood Cells into Peripheral Vein, Percutaneous Approach (ICD-10-PCS; 2021-03-18)
PROC: BW251ZZ Computerized Tomography (CT Scan) of Chest, Abdomen and Pelvis using Low Osmolar Contrast (ICD-10-PCS; 2021-03-18)
PROC: 06L38CZ Occlusion of Esophageal Vein with Extraluminal Device, Via Natural or Artificial Opening Endoscopic (ICD-10-PCS; principal; 2021-03-19)
PROC: 30233K1 Transfusion of Nonautologous Frozen Plasma into Peripheral Vein, Percutaneous Approach (ICD-10-PCS; 2021-03-19)
PROC: 30233R1 Transfusion of Nonautologous Platelets into Peripheral Vein, Percutaneous Approach (ICD-10-PCS; 2021-03-19)
DX: A41.9 Sepsis, unspecified organism (principal); R57.1 Hypovolemic shock; I85.11 Secondary esophageal varices with bleeding; F10.231 Alcohol dependence with withdrawal delirium; K29.21 Alcoholic gastritis with bleeding; K72.90 Hepatic failure, unspecified without coma; D62 Acute posthemorrhagic anemia; D68.9 Coagulation defect, unspecified; K70.30 Alcoholic cirrhosis of liver without ascites; R65.10 Systemic inflammatory response syndrome (SIRS) of non-infectious origin without acute organ dysfunction; B19.20 Unspecified viral hepatitis C without hepatic coma; F12.90 Cannabis use, unspecified, uncomplicated; F32.A Depression, unspecified; Z20.822 Contact with and (suspected) exposure to COVID-19; F41.9 Anxiety disorder, unspecified; G47.30 Sleep apnea, unspecified; Z60.2 Problems related to living alone; E87.6 Hypokalemia; F10.220 Alcohol dependence with intoxication, uncomplicated; F20.9 Schizophrenia, unspecified; I10 Essential (primary) hypertension; Z80.42 Family history of malignant neoplasm of prostate; Z81.8 Family history of other mental and behavioral disorders; Z59.00 Homelessness unspecified; Z88.8 Allergy status to other drugs, medicaments and biological substances; Z56.0 Unemployment, unspecified; Z79.899 Other long term (current) drug therapy
CPT/HCPCS: 36415; 36430; 36556; 36573; 43244; 71045; 71260; 74177; 80053; 80162; 82140; 82150; 82948; 83690; 83735; 84100; 84484; 85007; 85025; 85027; 85610; 85730; 86885; 86900; 86901; 86920; 87635; 93005; 96365; 96368; 96375; 99152; 99153; 99291; C9113; G0378; J0696; J1200; J2060; J2250; J2354; J2405; J2560; J3010; J3411; J3475; J3480; J3490; J7030; J7040; J7050; P9016; P9035; P9045; P9059